=== PATIENT | female | born 1950 | race Caucasian/White ===

== ENCOUNTER 2017-12-27 17:45 | Inpatient (IN) | payer OTHER ==
[~2017-12-27] VITALS: Ht 154.9 cm; Wt 117.9 kg
[~2017-12-27 17:45] MED LIST: COLESTID1 GM PO; KEFLEX500 M1 PO; KEFLEX500 MG PO; KLONOPIN1 MG PO; LOPRESSOR25 PO; METFORMIN HCL500 MG PO; OMEPRAZOLE20 M1 PO
[2017-12-27 17:48] VITALS: BP 120/36; BP 128/63
[2017-12-27] MEDS ORDERED: LASIX 40 MG TAB40 M2 PO (17:58)
[2017-12-27] MEDS ORDERED: COREG25 MG PO (17:58)
[2017-12-27] MEDS ORDERED: LOVASTATIN 20 M20 MG PO (17:59)
[2017-12-27 18:12] LABS: ABSOLUTE BASOPHILS 0.1 thou/uL (0.0-0.2); ABSOLUTE EOSINOPHILS 0.2 thou/uL (0.0-0.7); ABSOLUTE LYMPHOCYTES 1.8 thou/uL (0.8-5.3); ABSOLUTE MONOCYTES 0.6 thou/uL (0.0-1.2); ABSOLUTE NEUTROPHILS 4.7 thou/uL (1.6-8.1); BASOPHILS 0.7 %; EOSINOPHILS 3.1 %; HEMOGLOBIN 11.5 gm/dL (12.0-15.0); LYMPHOCYTES 23.9 %; MCH 29.7 pg (26.0-34.0); MCHC 32.8 g/dL (28.0-37.0); MCV 90.7 fL (80.0-100.0); MONOCYTES 7.9 %; MPV 8.1 fl. (7.2-11.1); NUCLEATED RBCS 0 /100WBC; PLATELET COUNT* 231 thou/uL (150-400); POLYS 64.4 %; RBC 3.86 mil/uL (4.20-5.00); RDW-CV 14.1 % (10.5-14.5); WBC 7.3 thou/uL (4.0-11.0)
[2017-12-27 18:22] LABS: ANION GAP 9 mmol/L (7-16); BUN 27 mg/dL (7-18); CALCIUM 8.7 mg/dL (8.5-10.1); CHLORIDE 103 mmol/L (98-107); CO2 28 mmol/L (21-32); CREATININE 1.5 mg/dL (0.6-1.3); GLUCOSE 241 mg/dL (70-99); POTASSIUM 3.9 mmol/L (3.5-5.1); SODIUM 140 mmol/L (136-145)
[2017-12-27 18:24] LABS: APTT 26.5 Seconds (25.0-31.3)
[2017-12-27 18:33] LABS: ALKALINE PHOSPHATASE 94 U/L (46-116); NT-PRO BRAIN NAT PEPTIDE 388 pg/mL (<300); SGOT 17 U/L (15-37); SGPT 22 U/L (30-65); TOTAL BILIRUBIN 0.3 mg/dL (<0.1-1.0); TOTAL PROTEIN 7.4 g/dL (6.4-8.2); TROPONIN-I LEVEL <0.06 ng/mL (<0.06)
[2017-12-27 19:47] VITALS: BP 149/54
[2017-12-27 20:00] VITALS: BP 157/88
[2017-12-28] VITALS: BP 151/74
[2017-12-28] MEDS ORDERED: GLUCOPHAGE XR500 MG PO (01:54)
[2017-12-28 04:00] VITALS: BP 167/62
--- NOTE | 2017-12-28 07:25 | NUR ---
CHANGE OF SHIFT BEDSIDE REPORT GIVEN PATIENT SEEN AT BEDSIDE, IN BED ASLEEP ASSUMED PATIENT CARE
[2017-12-28 08:00] VITALS: BP 156/67
--- NOTE | 2017-12-28 09:19 | NUR ---
Pt is A&O. Resides at home alone. Pt states that she [facility]. Pt is independent with ADLs, continues to cook, clean and drive. Pt stated that she was in the hospital at [facility] at the end of September, she was dx with CHF and dc home with home o2 through the [facility] and a hospital bed. Pt stated that she also has a scooter and walker at home. Pt has a hx of having a nurse through the [facility] to assist with dressing changes for her lymphodema. 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 Pt's goal is to return home at dc, no needs anticipated.
[2017-12-28 09:27] LABS: CALCIUM 9.1 mg/dL (8.5-10.1); CREATININE 1.3 mg/dL (0.6-1.3); MAGNESIUM 1.8 mg/dL (1.8-2.4); POTASSIUM 3.6 mmol/L (3.5-5.1)
--- NOTE | 2017-12-28 11:20 | 2DMMODE ---
[place] [address] 2 D/M-MODE ECHOCARDIOGRAM Name: AMBAR SOSA Room: [address] IN [facility]#: [id number] Admission: 12/27/17 Attend Phys: Jacklyn Sanabria, Discharge: Date of : 48 Date of Service: 12/28/17 1120 Report #: [id number] THIS REPORT FOR: //name// APPROVED REPORT Study performed: 12/28/2017 10:10:04 EXAM: Comprehensive 2D, Doppler, and color-flow Echocardiogram Patient Location: In-Patient Room #: [facility] Status: routine BSA: 2.11 HR: 75 bpm BP: 167/62 mmHg Rhythm: NSR Other Information Study Quality: Good Indications Dyspnea 2D Dimensions LVEF(%): 83.59 (>50%) IVSd: 11.15 (7-11mm) LVOT Diam: 17.65 (18-24mm) LVDd: 50.94 mm PWd: 8.87 (7-11mm) Ascending Ao: 28.32 (22-36mm) LVDs: 24.04 (25-40mm) Aortic Root: 26.99 mm Shelton's LVEF: 83.59 % Volumes Left Atrial Volume (Systole) LA ESV Index: 32.00 mL/m2 Aortic Valve AoV Peak Juni.: 3.09 m/s AO Peak Gr.: 38.25 mmHg LVOT Max P.13 mmHg AO Mean Gr.: 22.37 mmHg LVOT Mean P.67 mmHg LVOT Max V: 1.88 m/s AO V2 VTI: 66.29 cm LVOT Mean V: 1.29 m/s AMBER (VTI): 1.67 cm2 LVOT V1 VTI: 45.35 cm Mitral Valve E/A Ratio: 0.84 [place] [address] 2 D/M-MODE ECHOCARDIOGRAM Name: AMBAR SOSA Room: [address] IN .R.#: [id number] Admission: 12/27/17 Attend Phys: Jacklyn Sanabria, Discharge: Date of : 48 Date of Service: 12/28/17 1120 Report #: [id number] MV Decel. Time: 263.14 ms MV E Max Juni.: 1.24 m/s MV PHT: 76.31 ms MVA (PHT): 2.88 cm2 TDI E/Lateral E': 9.54 E/Medial E': 10.33 Medial E' Juni.: 0.12 m/s Lateral E' Juni.: 0.13 m/s Pulmonary Valve PV Peak Juni.: 1.47 m/s PV Peak Gr.: 8.68 mmHg Tricuspid Valve TR Peak Gr.: 30.79 mmHg RVSP: 35.00 mmHg Left Ventricle The left ventricle is normal size. There is normal LV segmental wall motion. There is normal left ventricular wall thickness. Left ventricular systolic function is normal. LVEF is >70%. Transmitral Doppler flow pattern suggests impaired LV relaxation. Right Ventricle The right ventricle is normal size. The right ventricular systolic function is normal. Atria Left atrium is mildly dilated. The right atrium size is normal. Aortic Valve Mild aortic valve sclerosis. No aortic regurgitation is present. There is no aortic valvular stenosis. Mitral Valve The mitral valve is normal in structure. Trace mitral regurgitation. No evidence of mitral valve stenosis. Tricuspid Valve The tricuspid valve is normal in structure. Trace tricuspid regurgitation. The RVSP is 35-40 mmHg. Pulmonic Valve The pulmonary valve is normal in structure. There is no pulmonic [place] [address] 2 D/M-MODE ECHOCARDIOGRAM Name: AMBAR SOSA Room: [address] IN [facility]#: [id number] Admission: 12/27/17 Attend Phys: Jacklyn Sanabria, Discharge: Date of : 48 Date of Service: 12/28/17 1120 Report #: [id number] Great Vessels The aortic root is normal in size. IVC is normal in size and collapses with >50% inspiration Pericardium There is no pericardial effusion. <Conclusion> The left ventricle is normal size. There is normal left ventricular wall thickness. Left ventricular systolic function is normal. LVEF is >70%. Transmitral Doppler flow pattern suggests impaired LV relaxation. Left atrium is mildly dilated. Trace tricuspid regurgitation. The RVSP is 35-40 mmHg. Mild aortic valve sclerosis. <ELECTRONICALLY SIGNED> By: Yair Valdes MD, FACC 12/28/17 1120 19 19 Yair Valdes MD, FACC /INF
[2017-12-28 11:30] VITALS: BP 146/64
--- NOTE | 2017-12-28 11:40 | EKG ---
[place] [address] ELECTROCARDIOGRAM REPORT Name: AMBAR SOSA Room: [address] IN [facility]#: [id number] Admission: 12/27/17 Attend Phys: Jacklyn Sanabria MD Discharge: Date of : 48 Report #: [id number] THIS REPORT FOR: //name// [facility] ED Test Date: 2017-12-27 Test Time: 17:51:17 Pat Name: AMBAR SOSA Department: Room: Gender: F Client Solutions Director: Trace DONG : 1950 Requested By: Giovanni Spencer Order Number: [id number] MD: Quinn Solorio Measurements Intervals [place] Rate: 77 P: 51 VA: 162 QRS: 21 QRSD: 94 T: 55 QT: 401 QTc: 454 Interpretive Statements Sinus rhythm Baseline wander in lead(s) V2 Compared to ECG 06/16/2017 14:32:26 No significant changes Electronically Signed On 12-28-2017 11:40:04 CDT by Quinn Solorio [email or web address] <ELECTRONICALLY SIGNED> By: Quinn Solorio MD, [facility] 12/28/17 1140 1751 1751 Quinn Solorio MD, [facility] /EPI
--- NOTE | 2017-12-28 13:05 | NUR ---
NUtrition: consulted by nursing regarding diet. Pt is on low Na and CHO controlled diet. Pt states she is very strict with her 2 gm Na diet and eats about 1400 mg Na a day. Pt also reports Dm since childhood and can't tolerate most concenrated sweets, juice, etc; very strict w/ DM diet. Pt ordered a vegetable only salad no dressing for lunch, and wants the same for dinner with unbuttered toast (not crackers). Pt states she sat for too long at [employer] this weekend which caused her fluid to build up. No diet education needed at this time.
[2017-12-28 16:00] VITALS: BP 133/60
--- NOTE | 2017-12-28 17:25 | NUR ---
WOUND CARE NOTE: CONSULT RECEIVED FOR STASIS DERMATITIS. PATIENT PRESENTS WITH WHAT APPEARS CHRONIC VENOUS STASIS/LYMPHEDEMA TO BILATERAL LOWER EXTREMITIES. L>R. LEFT CALF MEASURES 61CM R CALF MEASURES 54CM. LEFT LEG IS TENDER TO TOUCH. CLEANSED BILATERAL LOWER EXTREMITIES WITH SOAP AND WATER, PATTED DRY. PATIENT STATES SHE IS ALLERGIC TO LOTIONS. NO LOTION WAS PLACED. APPLIED KERLIX AND THADDEUS FROM TOES TO KNEES. PALPABLE PEDAL PULSES BILATERALLY. ENCOURAGED PATIENT TO KEEP LEGS ELEVATED AND MAINTAIN COMPRESSION. PATIENT ADMITS TO NOT USING HER COMPRESSION OR LYMPHEDEMA PUMPS SHE IS SUPPOSED TO. RECOMMEND MILAN TO DETERMINE IF HIGHER COMPRESSION COULD BE TOLERATED. ELEVATE BLE TIGHT BLOOD GLUCOSE CONTROL-PATIENT STATES SHE IS ALLERGIC TO INSULIN FOLLOW UP WITH LYMPHEDEMA CLINC UPON DISCHARGE
[2017-12-28 18:07] LABS: URINE BILIRUBIN NEGATIVE (Negative); URINE BLOOD NEGATIVE (Negative); URINE CLARITY CLEAR; URINE COLOR YELLOW; URINE GLUCOSE-RANDOM NEGATIVE (Negative); URINE KETONES NEGATIVE (Negative); URINE LEUKOCYTES-REFLEX NEGATIVE (Negative); URINE NITRITE-REFLEX NEGATIVE (Negative); URINE PROTEIN NEGATIVE (Negative); URINE SPECIFIC GRAVITY 1.015 (1.005-1.030); URINE UROBILINOGEN 0.2 E.U./dl (0.2-1.0)
--- NOTE | 2017-12-28 18:29 | NUR ---
PATIENT REMAINS A AND O X 4 SR/1ST DEGR DIM/WHEEZES O2 2L NC O2 SAT MID 90S MEDIATOR COUGH APPETITE FAIR LAST BM UNKNOWN UP WITH 1 ASSIST TO BSC BLE 2-3+ AND DISCOLORATION NEW ORDERS ECHO, VENOUS DOPPLER COMPLETED URINE/CX SENT BLE COMPRESSIONS DONE PER WOUND CONS CARD FLUID RESTRICTION 2000CC ACCU CHECKS 242/267/265 PATIENT REFUSING SSI MESSAGE SENT TO NOTIFY CALL LIGHT IN REACH AND INSTRUCTION FOLLOWED BED ALARM ON
[2017-12-28 20:00] VITALS: BP 138/54
[2017-12-29] VITALS: BP 94/58
[2017-12-29 04:00] VITALS: BP 144/57
[2017-12-29 04:42] LABS: HEMATOCRIT 33.1 % (37.0-47.0); HEMOGLOBIN 10.9 gm/dL (12.0-15.0); MCH 29.9 pg (26.0-34.0); MCHC 32.9 g/dL (28.0-37.0); MCV 90.9 fL (80.0-100.0); MPV 8.5 fl. (7.2-11.1); RBC 3.65 mil/uL (4.20-5.00); RDW-CV 14.5 % (10.5-14.5); WBC 6.6 thou/uL (4.0-11.0)
[2017-12-29 05:01] LABS: CALCIUM 9.4 mg/dL (8.5-10.1); CREATININE 1.4 mg/dL (0.6-1.3); MAGNESIUM 2.2 mg/dL (1.8-2.4); POTASSIUM 3.6 mmol/L (3.5-5.1)
--- NOTE | 2017-12-29 05:34 | NUR ---
ASSUMED PT CARE AT 19:15. REPORT RECEIVED FROM NURSE. PTL SET AEKE ANTICULAUING. SR WITH 1SR DEGREE IN94 TO 95 % I 3 L O2. ASSESSMENT PERFORMED AT BEDSIDE. COMPRRSSION SOCKING ON DAVE LOWER EXTREMITIES ARE SWOLLEN. RECEIVED FRIENFD VISITORS. IV INE BLEW OUT, RPLACED BY NEW IV LINE IN LEFT HAND. ACCUCHECK RESULT NEEDED SAUL INSULIN . SHE REFUSED INSULIN WHICH IS BELIEVED TO CREAT SHORT AVTUING BT MUBB;ER FO R A 2018. PT IS CURRENTLY RESTIN IN BED. WILL CONTINUE TO MONITOR
--- NOTE | 2017-12-29 07:20 | NUR ---
CHANGE OF SHIFT, BEDSIDE REPORT GIVEN PATIENT SEEN AT BEDSIDE, IN BED AND RESTING ASSUMED PATIENT CARE
[2017-12-29 08:00] VITALS: BP 163/67
[2017-12-29 12:34] VITALS: BP 152/50
[2017-12-29 16:03] VITALS: BP 144/57
[2017-12-29 20:00] VITALS: BP 142/66
[2017-12-30] VITALS: BP 124/55
[2017-12-30 04:00] VITALS: BP 160/69
--- NOTE | 2017-12-30 06:42 | NUR ---
ASSUMED PT CARE AT 19:15 REPORT RECEIVED FROM NURSE. PT IS ALERT AWAKE ORIENTED X 4, VITALS SIGNS WIHTIN NORMAL LIMIT. NO COMPLAINT ABOUT PAIN. ASSESSMENT PERFORMED AT BEDSIDE. EXPERIENCED SOME COUGHING DURING THE NIGHT. i SUGGESTED SOME COUGH MED . PT REFUSES SAYING THAT COUGH MEDICINE IS NOT GOOD FOR HER. SHE IS SINUE RYTHM ON THE MONITOR. SHE GOT UP WITH ASSIST X1 MULTIPLE TIME DURING THE NIGHT SO SHE CAN USE THE BEDSIDE COMMODE. SHE REFUSES THE INSULIN ORDERS USUAL. ONLY TAKES THE METFORMIN. SHE HAD A GOOD NIGHT FREE OF FALL.
[2017-12-30 08:25] VITALS: BP 173/64
--- NOTE | 2017-12-30 08:25 | NUR ---
RECEIVED REPORT FROM MIRI AND ASSUMED CARE OF PT @ 2223.PT IS A/O,VSS,TRACING SR ON THE MONITOR.LUNG SOUNDS ARE CLEAR.IV LEFT FOREARM PATENT AND SALINE LOCKED.PT IS CALM AND COOPERATIVE WITH NO C/O PAIN AT TIME OF ASSESSMENT.PT IS UP WITH SBA TO BATHROOM.PT LEFT RESTING IN BED WITH CALL LIGHT AND FALL PRECAUTIONS IN PLACE. WILL CONTINUE TO MONITOR. PT LEGS REWRAPPED BY WOUND CARE.PT OK FOR DISCHARGE.
--- NOTE | 2017-12-30 10:42 | CON ---
[facility] [address] [place] [address] CONSULTATION Name: AMBAR SOSA Room: [address] IN .R.#: [id number] Admission: 12/27/17 Attend Phys: Jacklyn Sanabria MD Discharge: Date of : 48 Report #: [id number] THIS REPORT FOR: //name// CC: Francois Sanabria INDICATION: Heart failure. HISTORY OF PRESENT ILLNESS: The patient is a morbidly obese 67-year-old white female with chronic lymphedema of the left lower extremity who was admitted to the hospital with increasing shortness of breath and swelling. She was not having any chest pain. She was admitted to the hospital with a diagnosis of qtdsq-ys-auqsobg heart failure. Echocardiogram today shows normal left ventricular systolic function with evidence of diastolic dysfunction suggesting/supporting diagnosis of yzmmn-co-tswxyma diastolic heart failure. She has rather significant swelling of both lower extremities, especially the left lower extremity. She has worn wraps in the past. She is having some blistering of the legs and reports recent cellulitis. PAST MEDICAL HISTORY: 1. Congestive heart failure. 2. Chronic lymphedema. 3. History of cellulitis involving both legs. 4. Breast cancer, status post right mastectomy. 5. Morbid obesity. 6. PTSD. 7. The patient reports history of coronary artery disease. FAMILY HISTORY: The patient's brother suddenly. There is a history of coronary artery disease, bypass surgery and heart failure in family relatives. SOCIAL HISTORY: The patient quit smoking 3 years ago. She does not drink alcohol. She is 100% disabled. ALLERGIES: ASPIRIN, STADOL, CODEINE, HYDROCODONE, IBUPROFEN, MEPERIDINE, SULFAS. HOME MEDICATIONS: Carvedilol 25 mg p.o. b.i.d., Lasix 40 mg p.o. daily, lovastatin 20 mg p.o. daily, metformin XR 500 mg daily, omeprazole 20 mg daily, clonazepam 1 mg at bedtime. REVIEW OF SYSTEMS: A 14-point review of systems is positive for focal paralysis of the left lower extremity, recent fevers. CARDIOPULMONARY: She reports a cough that is nonproductive. She has a history of pneumonia and asthma. She reports palpitations, dyspnea, orthopnea and paroxysmal [place] [address] CONSULTATION Name: AMBAR SOSA Room: [address]#: [id number] Admission: 12/27/17 Attend Phys: Jacklyn Sanabria MD Discharge: Date of : 48 Report #: [id number] LYMPHATIC: She reports lymphedema. ENDOCRINE: She reports type 2 diabetes mellitus. GASTROINTESTINAL: She has had some vomiting without hematemesis. BREAST: She has a history of right breast cancer, status post partial lumpectomy. ALLERGIES: Medical as outlined above. She also reports seasonal allergies. PSYCHIATRIC: She reports PTSD. 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 EYES: She wears glasses without acute visual changes. Otherwise, 14-point review of systems is unremarkable. PHYSICAL EXAMINATION: VITAL SIGNS: Blood pressure 146/64, pulse 80 and regular. GENERAL: This is an obese white female, in no distress. Mood and affect appropriate. HEENT: The patient is wearing glasses. Extraocular muscles intact. Mucous membranes are moist. NECK: Shows no jugular venous distention. There are no carotid bruits. CHEST: Reveals clear lung arvizu. I do not appreciate wheezes or rales. CARDIOVASCULAR: Reveals a regular rhythm with normal S1 and S2. I do not appreciate gallop or murmur. ABDOMEN: Reveals a protuberant abdomen, soft and nontender. EXTREMITIES: Show significant lower extremity edema with 3 to 4+ edema of the lower extremities. There are chronic skin changes noted. SKIN: Dry. LABORATORY DATA: Labs are reviewed. Sodium 141, potassium 3.6, chloride 101, bicarbonate 30, BUN 26, creatinine 1.3, serum glucose 240. LFTs are within normal limits. Troponins less than 0.06. NT-proBNP 388. White blood cell count 7.3, hemoglobin 11.5, platelet count 231,000. Chest x-ray shows no acute process, mild cardiomegaly noted. Echocardiogram shows normal left ventricular systolic function with grade 1 diastolic dysfunction. IMPRESSION AND RECOMMENDATIONS: 1. Hncpt-ve-cyrvkms diastolic heart failure. Agree with continued IV diuretics for diuresis. At this point, would continue to treat other underlying causes including hypertension. 2. Diabetes treatment per primary physician. 3. Lymphedema. The patient is on a moderate dose diuretic and diuresing fairly well at this point in time. I would consider lower extremity wraps to aid in compression. The patient to keep her legs elevated as she is doing. [facility] [address] [place] [address] CONSULTATION Name: AMBAR SOSA Room: [address]: [id number] Admission: 12/27/17 Attend Phys: Jacklyn Sanabria MD Discharge: Date of : 48 Report #: [id number] 4. Hypertension. Blood pressure appears adequately controlled on current antihypertensive regimen. <ELECTRONICALLY SIGNED> By: Yair Valdes MD, FACC 12/30/17 1042 1433 0004Yair Valdes MD, FACC /nt
--- NOTE | 2017-12-30 11:25 | NUR ---
CM discussed HH with Pt, Pt stated that if she gets home and decides that she needs it, [facility] will [facility] and [facility]. Pt scheduled to dc to home today.
--- NOTE | 2017-12-30 11:32 | NUR ---
WOUND CARE NOTE: PATIENT'S MILAN WOULD BE APPROPRIATE FOR STRONGER COMPRESSION. PATIENT DENIES NEED FOR HOME HEALTH AND STATES SHE WOULD REWRAP HER LEGS HERSELF. DO NOT BELIEVE THIS WOULD BE IDEAL FOR PATIENT TO WRAP HER LEGS WITH MULTILAYERED COMPRESSION. COMPRESSION MAY NOT BE THERAPEUTIC. HOWEVER, PATIENT STATES SHE HAS LYMPHEDEMA PUMPS AND COMPRESSION GARMETS AT HOME. PATIENT STATES SHE HAS SEEN [facility] AND EXPRESSED INTEREST IN GOING TO OUR LYMPHEDEMA CLINIC. GAVE PATIENT CARD FOR OUR CLINIC AND ENCOURAGED PATIENT TO FOLLOW UP IN ONE OR THE OTHER. EDUCATED PATIENT ON IMPORTANCE OF WEARING COMPRESSION, PATIENT ADMITS TO NOT WEARING THEM WHEN SHE IS OUT RUNNING ERRANDS OR TO APPOINTMENTS. STRESSED THE IMPORTANCE OF WEARING HER COMPRESSION EVEN WHEN SHE IS OUT AND ABOUT. PATIENT COMMUNICATED UNDERSTANDING. EDUCATED PATIENT ON IMPORTANCE OF ELEVATING HER LEGS AND NOT SITTING WITH THEM DOWN, COMMUNICATED UNDERSTANDING. PATIENT STATES SHE HAS A HOSPITAL BED AT HOME AND A LAZY BOY SHE CAN USE. REWRAPPED PATIENT'S LEGS WITH KERLIX AND THADDEUS. PATIENT STATES SHE HAS CELLULITIS TO THE RIGHT LEG, BUT THIS LEG DOES NOT APPEAR INFLAMMED OR HOT TO TOUCH. BILATERAL LEGS CONTINUE TO BE EDEMATOUS. RECOMMEND FOLLOW UP IN LYMPHEDEMA CLINIC COMPRESSION THERAPY-DETENTION ELEVATE BLE
[2017-12-30 12:41] VITALS: BP 169/70
[2017-12-30] MEDS ORDERED: PROVIGIL 200 M200 M1 PO (14:46)
[2017-12-30] MEDS ORDERED: ACCUNEB SO1.25 MG/1 INH (14:48)
[2017-12-30 16:00] VITALS: BP 154/61
--- NOTE | 2017-12-30 16:22 | NUR ---
PT OK FOR DISCHARGE.PAPERWORK COMPLETED AND GIVEN TO PT.ALL PT BELONGINGS PACKED AND TAKEN WITH PT.IV REMOVED.HEART MONITOR REMOVED AND RETURNED TO NURSING STATION.FOLLOW UP APPOINTMENT SCHEDULED WITH PCP WITHIN 7 DAYS FROM TODAY.SCRIPTS AND EDUCATION GIVEN.
== END 2017-12-30 17:25 | disposition home or self-care (01) | DRG 291 ==
LOC: M.ERS 17:45 → M.TBA-ER 18:20 → M.2W 18:20
PROVIDERS: Family Medicine; Internal Medicine; ADMIT Internal Medicine
DX: I13.0 Hypertensive heart and chronic kidney disease with heart failure and stage 1 through stage 4 chronic kidney disease, or unspecified chronic kidney disease (principal); J96.21 Acute and chronic respiratory failure with hypoxia; I50.43 Acute on chronic combined systolic (congestive) and diastolic (congestive) heart failure; Z68.42 Body mass index [BMI] 45.0-49.9, adult; E66.01 Morbid (severe) obesity due to excess calories; I89.0 Lymphedema, not elsewhere classified; F43.10 Post-traumatic stress disorder, unspecified; I25.10 Atherosclerotic heart disease of native coronary artery without angina pectoris; Z96.653 Presence of artificial knee joint, bilateral; Z96.651 Presence of right artificial knee joint; N18.3 Chronic kidney disease, stage 3 (moderate); I87.2 Venous insufficiency (chronic) (peripheral); E11.22 Type 2 diabetes mellitus with diabetic chronic kidney disease; G47.419 Narcolepsy without cataplexy; Z85.3 Personal history of malignant neoplasm of breast; Z90.11 Acquired absence of right breast and nipple; Z82.49 Family history of ischemic heart disease and other diseases of the circulatory system; Z87.891 Personal history of nicotine dependence; Z88.6 Allergy status to analgesic agent; Z88.8 Allergy status to other drugs, medicaments and biological substances; Z88.2 Allergy status to sulfonamides; Z79.899 Other long term (current) drug therapy; Z79.84 Long term (current) use of oral hypoglycemic drugs; I25.2 Old myocardial infarction; Z90.49 Acquired absence of other specified parts of digestive tract; Z90.722 Acquired absence of ovaries, bilateral

== ENCOUNTER 2018-04-17 08:00 | Emergency (ER) | payer OTHER ==
[~2018-04-17] VITALS: Ht 121.9 cm; Wt 158.8 kg
[~2018-04-17 08:00] MED LIST changes: +ACCUNEB SO1.25 MG/1 INH; +COREG25 MG PO; +GLUCOPHAGE XR500 MG PO; +LASIX 40 MG TAB40 M2 PO; +LOVASTATIN 20 M20 MG PO; +PROVIGIL 200 M200 M1 PO
[2018-04-17] MEDS ORDERED: UNICOMPLEX M TA1 TA1 PO (08:15)
[2018-04-17] MEDS ORDERED: LASIX 20 MG TAB20 MG PO (08:16)
[2018-04-17] MEDS ORDERED: MEDROLDOSEPACK PO (09:59)
[2018-04-17] MEDS ORDERED: ULTRAM 50MG TAB50 MG PO (09:59)
[2018-04-17 10:16] VITALS: BP 105/42
== END 2018-04-17 10:19 | disposition home or self-care (01) ==
LOC: M.ERS 08:00
DX: M75.82 Other shoulder lesions, left shoulder (principal); L50.9 Urticaria, unspecified; I50.9 Heart failure, unspecified; E11.9 Type 2 diabetes mellitus without complications; J44.9 Chronic obstructive pulmonary disease, unspecified; J96.11 Chronic respiratory failure with hypoxia; I25.10 Atherosclerotic heart disease of native coronary artery without angina pectoris; E66.01 Morbid (severe) obesity due to excess calories; Z88.6 Allergy status to analgesic agent; Z88.8 Allergy status to other drugs, medicaments and biological substances; Z88.5 Allergy status to narcotic agent; Z88.2 Allergy status to sulfonamides; Z96.653 Presence of artificial knee joint, bilateral; Z85.3 Personal history of malignant neoplasm of breast; Z68.45 Body mass index [BMI] 70 or greater, adult

== ENCOUNTER 2018-06-20 19:20 | Emergency (ER) | payer OTHER, MEDICARE ==
[~2018-06-20] VITALS: Ht 154.9 cm; Wt 142.9 kg
[~2018-06-20 19:20] MED LIST changes: +LASIX 20 MG TAB20 MG PO; +MEDROLDOSEPACK PO; +ULTRAM 50MG TAB50 MG PO; +UNICOMPLEX M TA1 TA1 PO
[2018-06-20] MEDS ORDERED: GABAPENTIN 100100 MG (19:31)
[2018-06-20 19:51] LABS: ABSOLUTE EOSINOPHILS 0.2 thou/uL (0.0-0.7); ABSOLUTE LYMPHOCYTES 1.1 thou/uL (0.8-5.3); ABSOLUTE MONOCYTES 0.5 thou/uL (0.0-1.2); ABSOLUTE NEUTROPHILS 4.1 thou/uL (1.6-8.1); BASOPHILS 0.8 %; EOSINOPHILS 3.7 %; HEMATOCRIT 32.2 % (37.0-47.0); HEMOGLOBIN 10.4 gm/dL (12.0-15.0); MCH 29.8 pg (26.0-34.0); MCHC 32.4 g/dL (28.0-37.0); MCV 91.9 fL (80.0-100.0); MONOCYTES 8.1 %; MPV 8.3 fl. (7.2-11.1); NUCLEATED RBCS 0 /100WBC; PLATELET COUNT* 169 thou/uL (150-400); POLYS 69.4 %; RBC 3.51 mil/uL (4.20-5.00); WBC 5.9 thou/uL (4.0-11.0)
[2018-06-20 20:00] LABS: ANION GAP 8 mmol/L (7-16); BUN 26 mg/dL (7-18); CALCIUM 8.5 mg/dL (8.5-10.1); CHLORIDE 105 mmol/L (98-107); CO2 29 mmol/L (21-32); CREATININE 1.3 mg/dL (0.6-1.3); GLUCOSE 282 mg/dL (70-99); SODIUM 142 mmol/L (136-145)
[2018-06-20 20:02] LABS: ALBUMIN 2.7 g/dL (3.4-5.0); ALKALINE PHOSPHATASE 83 U/L (46-116); MAGNESIUM 1.6 mg/dL (1.8-2.4); SGOT 14 U/L (15-37); SGPT 16 U/L (30-65); TOTAL BILIRUBIN 0.3 mg/dL (<0.1-1.0); TOTAL PROTEIN 6.4 g/dL (6.4-8.2); TROPONIN-I LEVEL <0.06 ng/mL (<0.06)
[2018-06-20 21:12] VITALS: BP 125/59
--- NOTE | 2018-06-22 17:59 | EKG ---
[place] [address] ELECTROCARDIOGRAM REPORT Name: AMBAR SOSA Room: [facility]#: [id number] Admission: 06/20/18 Attend Phys: Discharge: 06/20/18 Date of : 48 Report #: [id number] THIS REPORT FOR: //name// [facility] ED Test Date: 2018-06-20 Test Time: 19:28:04 Pat Name: AMBAR SHEILA Department: Room: Gender: F Aircraft Maintenance Engineer: SAJI : 1950 Requested By: Macy Dia Order Number: [id number] MD: Yair Valdes Measurements Intervals [place] Rate: 75 P: 37 [place]: 175 QRS: 45 QRSD: 99 T: 55 QT: 406 QTc: 454 Interpretive Statements Sinus rhythm Compared to ECG 12/27/2017 17:51:17 No significant changes Electronically Signed On 06-22-2018 17:59:32 [employer] CONSULTANT by Yair Valdes [email or web address] <ELECTRONICALLY SIGNED> By: Yair Valdes MD, [facility] 06/22/18 1759 192 192 Yair Valdes MD, FACC /EPI
== END 2018-06-20 21:15 | disposition home or self-care (01) ==
LOC: M.ERS 19:20
PROVIDERS: Personal Emergency Response Attendant
DX: G47.419 Narcolepsy without cataplexy (principal); R60.0 Localized edema; I50.9 Heart failure, unspecified; E11.9 Type 2 diabetes mellitus without complications; E66.01 Morbid (severe) obesity due to excess calories; I25.10 Atherosclerotic heart disease of native coronary artery without angina pectoris; J96.11 Chronic respiratory failure with hypoxia; Z85.3 Personal history of malignant neoplasm of breast; Z68.43 Body mass index [BMI] 50.0-59.9, adult; Z88.6 Allergy status to analgesic agent; Z88.1 Allergy status to other antibiotic agents; Z88.5 Allergy status to narcotic agent; Z88.2 Allergy status to sulfonamides; Z88.8 Allergy status to other drugs, medicaments and biological substances

== ENCOUNTER 2018-06-30 16:28 | Inpatient (IN) | payer OTHER ==
[~2018-06-30] VITALS: Ht 154.9 cm; Wt 146.1 kg
[~2018-06-30 16:28] MED LIST changes: +GABAPENTIN 100100 MG
[2018-06-30 16:34] VITALS: BP 160/65
[2018-06-30 17:22] LABS: ABSOLUTE BASOPHILS 0.1 thou/uL (0.0-0.2); ABSOLUTE EOSINOPHILS 0.3 thou/uL (0.0-0.7); ABSOLUTE LYMPHOCYTES 1.2 thou/uL (0.8-5.3); ABSOLUTE MONOCYTES 0.5 thou/uL (0.0-1.2); ABSOLUTE NEUTROPHILS 4.5 thou/uL (1.6-8.1); BASOPHILS 0.8 %; EOSINOPHILS 4.2 %; HEMATOCRIT 31.6 % (37.0-47.0); HEMOGLOBIN 10.3 gm/dL (12.0-15.0); LYMPHOCYTES 18.8 %; MCH 29.9 pg (26.0-34.0); MCHC 32.7 g/dL (28.0-37.0); MCV 91.4 fL (80.0-100.0); MONOCYTES 7.1 %; MPV 7.3 fl. (7.2-11.1); NUCLEATED RBCS 0 /100WBC; PLATELET COUNT* 277 thou/uL (150-400); POLYS 69.1 %; RBC 3.46 mil/uL (4.20-5.00); RDW-CV 15.2 % (10.5-14.5); WBC 6.5 thou/uL (4.0-11.0)
[2018-06-30] MEDS ORDERED: ALEVE220 MG PO (17:25)
[2018-06-30] MEDS ORDERED: COREG25 M1 PO (17:25)
[2018-06-30] MEDS ORDERED: LASIX 20 MG TAB20 MG PO (17:26)
[2018-06-30] MEDS ORDERED: CENTRUM SILVER1 EAC4 PO (17:26)
[2018-06-30] MEDS ORDERED: CLONAZEPAM 0.50.5 M1 PO (17:26)
[2018-06-30] MEDS ORDERED: FORTAMET500 MG PO (17:27)
[2018-06-30] MEDS ORDERED: OMEPRAZOLE20 MG PO (17:27)
[2018-06-30] MEDS ORDERED: GABAPENTIN 100100 MG PO (17:27)
[2018-06-30] MEDS ORDERED: LOVASTATIN 20 M20 MG PO (17:27)
[2018-06-30] MEDS ORDERED: PROAIR RESPICL90 MCG INH (17:28)
[2018-06-30 17:33] LABS: ANION GAP 8 mmol/L (7-16); APTT 25.8 Seconds (25.0-31.3); BUN 24 mg/dL (7-18); CHLORIDE 106 mmol/L (98-107); CO2 29 mmol/L (21-32); CREATININE 1.2 mg/dL (0.6-1.3); GLUCOSE 160 mg/dL (70-99); POTASSIUM 4.4 mmol/L (3.5-5.1); SODIUM 143 mmol/L (136-145)
[2018-06-30 17:43] LABS: ALBUMIN 2.8 g/dL (3.4-5.0); ALKALINE PHOSPHATASE 90 U/L (46-116); LIPASE 118 U/L (73-393); MAGNESIUM 1.7 mg/dL (1.8-2.4); NT-PRO BRAIN NAT PEPTIDE 851 pg/mL (<300); SGOT 30 U/L (15-37); SGPT 29 U/L (30-65); TOTAL BILIRUBIN 0.3 mg/dL (<0.1-1.0); TOTAL PROTEIN 6.5 g/dL (6.4-8.2); TROPONIN-I LEVEL <0.06 ng/mL (<0.06)
[2018-06-30 19:38] LABS: URINE BILIRUBIN NEGATIVE (Negative); URINE BLOOD NEGATIVE (Negative); URINE CLARITY CLEAR; URINE COLOR YELLOW; URINE GLUCOSE-RANDOM NEGATIVE (Negative); URINE KETONES NEGATIVE (Negative); URINE LEUKOCYTES-REFLEX NEGATIVE (Negative); URINE NITRITE-REFLEX NEGATIVE (Negative); URINE PROTEIN NEGATIVE (Negative); URINE SPECIFIC GRAVITY 1.015 (1.005-1.030); URINE UROBILINOGEN 0.2 E.U./dl (0.2-1.0)
[2018-06-30 19:47] LABS: AMP/METHAMP Negative (Negative); BARBITURATES Negative (Negative); BENZODIAZEPINES Negative (Negative); COCAINE Negative (Negative); METHADONE Negative (Negative); OPIATES Negative (Negative); PCP Negative (Negative); THC Negative (Negative)
[2018-06-30 20:20] VITALS: BP 157/74
[2018-06-30 20:35] VITALS: BP 155/63
[2018-07-01] VITALS: BP 147/65
[2018-07-01 04:00] VITALS: BP 133/61
[2018-07-01 05:15] LABS: HEMATOCRIT 32.8 % (37.0-47.0); HEMOGLOBIN 10.5 gm/dL (12.0-15.0); MCH 29.2 pg (26.0-34.0); MCV 91.2 fL (80.0-100.0); MPV 7.9 fl. (7.2-11.1); NUCLEATED RBCS 0 /100WBC; PLATELET COUNT* 295 thou/uL (150-400); RDW-CV 15.2 % (10.5-14.5); WBC 7.1 thou/uL (4.0-11.0)
[2018-07-01 05:26] LABS: ANION GAP 8 mmol/L (7-16); BUN 24 mg/dL (7-18); CALCIUM 8.8 mg/dL (8.5-10.1); CHLORIDE 104 mmol/L (98-107); CHOLESTEROL 154 mg/dL (<200); CO2 28 mmol/L (21-32); CREATININE 1.3 mg/dL (0.6-1.3); GLUCOSE 239 mg/dL (70-99); HDL CHOLESTEROL 48 mg/dL (>40); LDL CHOLESTEROL 83 mg/dL (<100); MAGNESIUM 1.7 mg/dL (1.8-2.4); SODIUM 140 mmol/L (136-145); TC:HDL 3.2 Ratio (Not establshd); TRIGLYCERIDE 118 mg/dL (<150); VLDL 24 mg/dL (<40)
[2018-07-01 05:52] LABS: SERUM ASSESSMENT CLEAR
[2018-07-01 06:04] LABS: % SATURATION 10 % (20-39); IRON 33 ug/dL (50-175)
[2018-07-01 06:49] LABS: ABSOLUTE LYMPHOCYTES 0.7 thou/uL (0.8-5.3); ABSOLUTE MONOCYTES 0.1 thou/uL (0.0-1.2); ABSOLUTE NEUTROPHILS 6.3 thou/uL (1.6-8.1)
[2018-07-01 06:50] LABS: HYPOCHROMASIA 1+; MICROCYTES 1+; PLATELET ESTIMATE ADEQUATE
[2018-07-01 08:00] VITALS: BP 132/54; BP 147/57
[2018-07-01 11:55] VITALS: BP 132/48
--- NOTE | 2018-07-01 14:00 | EKG ---
[place] [address] ELECTROCARDIOGRAM REPORT Name: AMBAR SOSA Room: [address] ADM IN .R.#: [id number] Admission: 06/30/18 Attend Phys: Pat Gan MD Discharge: Date of : 48 Report #: [id number] THIS REPORT FOR: //name// [facility] ED Test Date: 2018-06-30 Test Time: 16:45:40 Pat Name: AMBAR SOSA Department: Room: [facility] Gender: Accident Examiner: Trace DONG : 1950 Requested By: Giovanni Spencer Order Number: [id number] MD: Yair Valdes Measurements Intervals [place] Rate: 70 P: 59 ND: 168 QRS: 29 QRSD: 87 T: 41 QT: 415 QTc: 448 Interpretive Statements Sinus rhythm Low voltage, precordial leads Compared to ECG 06/20/2018 19:28:04 Low QRS voltage now present Electronically Signed On 07-01-2018 13:59:55 STEP DOWN SPECIALIST by Yair Valdes [email or web address] <ELECTRONICALLY SIGNED> By: Yair Valdes MD, FACC 07/01/18 1359 1645 1645 Yair Valdes MD, [facility] /EPI
[2018-07-01 16:46] VITALS: BP 132/54
[2018-07-01 19:07] LABS: GLYCOHEMOGLOBIN (HGB A1C) 8.3 % (4.8-5.6)
[2018-07-01 20:42] VITALS: BP 114/51
[2018-07-02] VITALS (7 sets, daily range): BP systolic 105–130; BP diastolic 46–61
--- NOTE | 2018-07-02 05:08 | CON ---
[facility] [address] [place] [address] CONSULTATION Name: AMBAR SOSA Room: [address] IN .R.#: [id number] Admission: 06/30/18 Attend Phys: Pat Gan MD Discharge: Date of : 48 Report #: [id number] THIS REPORT FOR: //name// CC: [facility] physician/PCP Pat Gan DATE OF SERVICE: 07/01/2018 INFECTIOUS DISEASE CONSULTATION ATTENDING PHYSICIAN: Dr. Gan. REASON FOR EVALUATION: Lower extremity inflammatory eruptions, question component of skin and soft tissue infection with cellulitis. HISTORY OF PRESENT ILLNESS: Chart reviewed, patient examined. This is a 68-year-old woman, with underlying COPD, who presented with shortness of breath. It is notable she has history of congestive heart failure as well as lower extremity lymphedema. She had been intermittently going to lymphedema clinic. She does have lymphedema pumps, however, became prohibitive for a number of reasons, she has not been going. She has not undergone wrapping. She does only walk a few steps. This is limited by shortness of breath. She requires a wheelchair, although she is good about not sitting all day along with her legs down. She does have a recliner and hospital bed. She has had increasing pain associated, in particular the left lower extremity. She has not had significant amount of erythema. From lack of compression, she has significant swelling. She does admit to dyspnea with minimal exertion at this point. She was initiated on doxycycline. ALLERGIES: SULFA, CODEINE, HYDROCODONE, ASPIRIN, IBUPROFEN, CLINDAMYCIN, TRAMADOL, MEPERIDINE, STADOL. CURRENT MEDICATIONS: Include p.r.n. analgesics, antiemetics, enoxaparin, furosemide, carvedilol, clonazepam, insulin, gabapentin, pantoprazole, ferrous sulfate, ascorbic acid. PAST MEDICAL HISTORY: As described above, history of diabetes mellitus, cardiomyopathy, history of congestive heart failure, morbid obesity, PTSD, chronic respiratory insufficiency, although she denies sleep apnea, admits to narcolepsy, bilateral total knee arthroplasty, history of breast cancer, left lower extremity paresis and has known atherosclerotic coronary artery disease. SOCIAL HISTORY: Former smoker. No ethanol or illicit drug use. FAMILY HISTORY: [place] [address] CONSULTATION Name: AMBAR SOSA Room: [address]#: [id number] Admission: 06/30/18 Attend Phys: Pat Gan MD Discharge: Date of : 48 Report #: [id number] REVIEW OF SYSTEMS: With the exception of the above, denies any gastrointestinal related complaints. PHYSICAL EXAMINATION: GENERAL: She is morbidly obese. She is dyspneic at rest. She has difficulty completing her sentences. She is on nasal cannula oxygen. VITAL SIGNS: Temperature 97.6, pulse 62, respirations 18, blood pressure 132/48. SKIN: Warm, dry, no rashes. HEENT: Extraocular muscles intact. NECK: He has got mobile neck. Supple. LUNGS: Diminished breath sounds throughout. HEART: Regular, distant. ABDOMEN: Morbidly obese, soft, nontender. EXTREMITIES: Bilateral lower extremities have appearance consistent with lymphedema. She has a component of venous stasis insufficiency with dermatitis. It is tender to touch. There is not significant amount of erythema. There are no open lesions. There is some quantification of the skin due to thickening due to the chronic stressor of the edema. Distal lower extremity pulses are somewhat diminished, may be a component of swelling. GENITOURINARY: Deferred. RECTAL: Deferred. LABORATORY DATA: Chest x-ray, cardiomegaly with vascular congestion. Blood cultures sterile thus far. CBC: White count of 7.1, H and H 10.5 and 32.8, platelets of 295. Electrolytes: Sodium 140, potassium 4.0, chloride 104, bicarbonate is 28, BUN and creatinine 24 and 1.3, glucose of 239. Urinalysis unremarkable. Lactic acid of 1.7. Sodium 143, potassium 4.4, chloride 106, bicarbonate is 29, anion gap of 8, BUN and creatinine 24 and 1.2, glucose of 160. Liver function tests unremarkable. Albumin of 2.8, total protein 6.5. Estimated GFR of 45. ASSESSMENT: Bilateral lower extremity inflammatory eruption, certainly notable increase in pain associated with particularly the left lower extremity, certainly can exclude entirely a cellulitic process, although I think it is primarily venous stasis dermatitis. I think at this point we have to work at the margins. She is disinclined to have compression. We will try to elevate at times so that we have to monitor closely with concerns about exacerbation of her already tenuous breathing situation and congestive heart failure with the fluid shifts and see how she does over the course of next 24-48 hours. <ELECTRONICALLY SIGNED> By: Angel Chou MD 07/02/18 0508 1205 [id number] Chou MD /nt
[2018-07-03] VITALS: BP 104/48
[2018-07-03 04:00] VITALS: BP 139/68
[2018-07-03 08:00] VITALS: BP 148/83
[2018-07-03 08:01] LABS: CREATININE 1.4 mg/dL (0.6-1.3); MAGNESIUM 1.7 mg/dL (1.8-2.4); POTASSIUM 3.3 mmol/L (3.5-5.1)
[2018-07-03 12:47] VITALS: BP 143/53
[2018-07-03 16:00] VITALS: BP 128/42
[2018-07-03 20:00] VITALS: BP 140/49
[2018-07-04] VITALS: BP 146/61
[2018-07-04 04:00] VITALS: BP 96/35
[2018-07-04 04:46] LABS: ABSOLUTE EOSINOPHILS 0.1 thou/uL (0.0-0.7); ABSOLUTE LYMPHOCYTES 1.4 thou/uL (0.8-5.3); ABSOLUTE MONOCYTES 0.7 thou/uL (0.0-1.2); ABSOLUTE NEUTROPHILS 3.6 thou/uL (1.6-8.1); BASOPHILS 0.8 %; EOSINOPHILS 2.1 %; HEMATOCRIT 34.4 % (37.0-47.0); HEMOGLOBIN 11.2 gm/dL (12.0-15.0); LYMPHOCYTES 23.3 %; MCH 29.6 pg (26.0-34.0); MCHC 32.5 g/dL (28.0-37.0); MCV 91.1 fL (80.0-100.0); MONOCYTES 12.2 %; MPV 7.7 fl. (7.2-11.1); NUCLEATED RBCS 0 /100WBC; PLATELET COUNT* 277 thou/uL (150-400); POLYS 61.6 %; RBC 3.78 mil/uL (4.20-5.00); WBC 5.8 thou/uL (4.0-11.0)
[2018-07-04 05:12] LABS: CALCIUM 9.4 mg/dL (8.5-10.1); CREATININE 1.4 mg/dL (0.6-1.3); MAGNESIUM 1.9 mg/dL (1.8-2.4); POTASSIUM 3.8 mmol/L (3.5-5.1)
[2018-07-04 08:00] VITALS: BP 136/71
[2018-07-04 12:01] VITALS: BP 181/82
[2018-07-04 16:06] VITALS: BP 147/45
[2018-07-04 20:00] VITALS: BP 118/55
[2018-07-05] VITALS: BP 135/57
[2018-07-05 04:00] VITALS: BP 136/46
[2018-07-05 08:00] VITALS: BP 120/65
[2018-07-05 12:00] VITALS: BP 102/60
[2018-07-05 13:27] LABS: CALCIUM 9.6 mg/dL (8.5-10.1); CREATININE 1.5 mg/dL (0.6-1.3); POTASSIUM 3.3 mmol/L (3.5-5.1)
[2018-07-05 16:00] VITALS: BP 151/74
[2018-07-05 20:00] VITALS: BP 145/46
[2018-07-06] VITALS: BP 141/54
[2018-07-06 04:00] VITALS: BP 156/56
[2018-07-06 05:46] LABS: CALCIUM 9.3 mg/dL (8.5-10.1); CREATININE 1.4 mg/dL (0.6-1.3); POTASSIUM 4.1 mmol/L (3.5-5.1)
[2018-07-06 08:00] VITALS: BP 121/54
[2018-07-06 12:00] VITALS: BP 133/58
[2018-07-06 16:45] VITALS: BP 129/71
[2018-07-06 20:00] VITALS: BP 131/59
[2018-07-07] VITALS (7 sets, daily range): BP systolic 92–149; BP diastolic 58–78
[2018-07-08 04:00] VITALS: BP 127/45
[2018-07-08 08:45] VITALS: BP 122/71
[2018-07-08 12:38] VITALS: BP 124/74
[2018-07-08 16:48] VITALS: BP 149/66
[2018-07-08 19:30] VITALS: BP 127/67
[2018-07-09] VITALS: BP 130/49
[2018-07-09 05:16] LABS: HEMATOCRIT 40.9 % (37.0-47.0); HEMOGLOBIN 13.5 gm/dL (12.0-15.0); MCH 30.2 pg (26.0-34.0); MCHC 33.1 g/dL (28.0-37.0); MCV 91.2 fL (80.0-100.0); MPV 8.7 fl. (7.2-11.1); RBC 4.49 mil/uL (4.20-5.00); RDW-CV 14.7 % (10.5-14.5); WBC 6.2 thou/uL (4.0-11.0)
[2018-07-09 06:03] LABS: ALBUMIN 3.3 g/dL (3.4-5.0); CALCIUM 9.7 mg/dL (8.5-10.1); CREATININE 1.5 mg/dL (0.6-1.3); MAGNESIUM 2.5 mg/dL (1.8-2.4); POTASSIUM 3.6 mmol/L (3.5-5.1); TOTAL BILIRUBIN 0.5 mg/dL (<0.1-1.0); TOTAL PROTEIN 7.5 g/dL (6.4-8.2)
--- NOTE | 2018-07-09 06:49 | CON ---
[address] [address] CONSULTATION Name: AMBAR SOSA Room: [address] IN ..#: [id number] Admission: 06/30/18 Attend Phys: Pat Gan MD Discharge: Date of : 48 Report #: [id number] THIS REPORT FOR: //name// CC: STACI physician/PCP Pat Gan REASON FOR CONSULTATION: Cough, shortness of breath. HISTORY OF PRESENT ILLNESS: This is a 68-year-old female patient who was admitted to this facility on 06/30/2018 with increasing shortness of breath. She had also increased lower extremity edema. She has chronic lymphedema. She had no chest pain, cough or congestion or fever at that time. She was treated as congestive heart failure, diastolic dysfunction. She was seen by Cardiology and she started back on her Lasix initially IV, then changed to p.o. Overall, she has been improving and she was about to be transferred to the rehab unit. Then her symptoms started again with increasing cough, nasal congestion and sore throat. She does not recall having being in contact with people with cold symptoms, but current symptom is highly consistent with cold symptoms. In addition to that, she started having more shortness of breath and wheezes. The patient told me she smoked for only 1 week long time ago. Few weeks ago, she was given albuterol inhaler. Also in the past, she told me she had episodes of bronchitis where she had a wheeze, for which she was treated with albuterol. She had currently no fever, no headache, no blurring of vision. Her lower extremity edema is much better. She had dressing on both lower extremities, which I did not disturb. ALLERGIES: ASPIRIN, STADOL, CLINDAMYCIN, CODEINE, HYDROCODONE, IBUPROFEN, SULFA, TRAMADOL and MEPERIDINE. PAST MEDICAL HISTORY: Chronic lymphedema, diastolic heart failure, diabetes mellitus, PTSD, morbid obesity, congestive heart failure, kyphoplasty, left lower extremity paresis, atherosclerosis, coronary artery disease. SOCIAL HISTORY: As mentioned above. SOCIAL HISTORY: No significant smoking history. No secondhand smoke exposure. FAMILY HISTORY: Reviewed with the patient, noncontributory to the above. REVIEW OF SYSTEMS: Twelve-point review of systems reviewed with the patient and negative other than as mentioned above. PHYSICAL EXAMINATION: VITAL SIGNS: She was on room air O2 saturation more than 90%, blood pressure 127/45, pulse rate of 74, temperature 36.5. GENERAL: Awake, alert, oriented, speaks in full [place], [place] [address] CONSULTATION Name: AMBAR SOSA Room: [address]#: [id number] Admission: 06/30/18 Attend Phys: Pat Gan MD Discharge: Date of : 48 Report #: [id number] interrupted with cough. HEENT: Head: Normocephalic, atraumatic. Pupils are reactive to light. Some nasal redness. Sounded congested with nasal speech. External ear looks healthy and normal. Oral cavity: Mallampati of 2 with moist mucous membrane. NECK: Full range of movement, nontender. CHEST: Diminished air movement bilaterally, prolonged expiratory phase. No definite wheezes. HEART: S1, S2, no murmur. ABDOMEN: Obese, soft, lax, benign, nontender. EXTREMITIES: Lower extremity lymphedema noted. She has dressing in both lower extremities: I did not disturb. No lymphadenopathy. LABORATORY DATA: Her last white blood count July 04, 5.8; hemoglobin 11.2; platelets 227. Her creatinine is 1.4 today, it was 1.2 upon hospitalization. Her INR is 1. She had multiple chest x-rays, the last one was July 04, all consistent with congestive heart failure, changes with signs of pulmonary vascular congestion. IMPRESSION: 1. Acute hypoxic respiratory failure, improved. 2. Lymphedema. 3. Diastolic heart failure. 4. Hypertension. 5. Diabetes mellitus. 6. Bronchospasm now. 7. Suspected respiratory viral illness. The patient with history suggestive of hyperreactive airway disease with cold symptoms ongoing to increase frequency of her nebulization treatment. We will start her on steroids. She needs a chest x-ray, the last one was 4 days ago, antibiotic being managed by ID for the lower extremity cellulitis. Diuresis per Cardiology. Thank you for the consult. <ELECTRONICALLY SIGNED> By: Ashely Parra MD 07/09/18 0649 [id number] [id number] Conner MD /nt
[2018-07-09 08:54] VITALS: BP 140/42
[2018-07-09 16:29] VITALS: BP 139/63
[2018-07-09 19:40] VITALS: BP 151/69
[2018-07-10 08:00] VITALS: BP 142/72
[2018-07-10 12:00] VITALS: BP 142/70
[2018-07-10] MEDS ORDERED: IRON325 PO (12:11)
[2018-07-10] MEDS ORDERED: PREDNISONE 20 M20 MG PO (12:11)
[2018-07-10] MEDS ORDERED: LASIX 40 MG TAB40 M1 PO (12:11)
[2018-07-10] MEDS ORDERED: IPRAT-ALBUT 0.5-3 ML INH (12:11)
[2018-07-10] MEDS ORDERED: HUMALOG100 UNIT/1 SUBQ (12:11)
[2018-07-10] MEDS ORDERED: DULCOLAX5 MG PO (12:11)
[2018-07-10] MEDS ORDERED: VITAMIN C1000 MG PO (12:11)
[2018-07-10] MEDS ORDERED: NYAMYC15 GM TOP (12:11)
[2018-07-10] MEDS ORDERED: BENZONATATE100 MG PO (12:11)
[2018-07-10] MEDS ORDERED: FLONASE 0.05%50 MCG NASAL (12:11)
[2018-07-10] MEDS ORDERED: GLUCOPHAGE500 MG PO (12:11)
== END 2018-07-10 15:24 | DRG 602 ==
LOC: M.ERS 16:28 → M.2W 17:48 → M.TBA-ER 17:48 → M.2W 21:18
PROVIDERS: Family Medicine; Internal Medicine; Internal Medicine Cardiovascular Disease; ADMIT Family Medicine
DX: L03.115 Cellulitis of right lower limb (principal); I50.33 Acute on chronic diastolic (congestive) heart failure; J96.21 Acute and chronic respiratory failure with hypoxia; N18.6 End stage renal disease; I13.2 Hypertensive heart and chronic kidney disease with heart failure and with stage 5 chronic kidney disease, or end stage renal disease; J44.1 Chronic obstructive pulmonary disease with (acute) exacerbation; Z68.44 Body mass index [BMI] 60.0-69.9, adult; I42.9 Cardiomyopathy, unspecified; I89.0 Lymphedema, not elsewhere classified; E11.22 Type 2 diabetes mellitus with diabetic chronic kidney disease; Z66 Do not resuscitate; I87.2 Venous insufficiency (chronic) (peripheral); J98.01 Acute bronchospasm; D50.9 Iron deficiency anemia, unspecified; E11.65 Type 2 diabetes mellitus with hyperglycemia; E66.01 Morbid (severe) obesity due to excess calories; F43.10 Post-traumatic stress disorder, unspecified; I25.10 Atherosclerotic heart disease of native coronary artery without angina pectoris; T38.0X5A Adverse effect of glucocorticoids and synthetic analogues, initial encounter; Z96.653 Presence of artificial knee joint, bilateral; G47.419 Narcolepsy without cataplexy; Z87.891 Personal history of nicotine dependence; Z88.6 Allergy status to analgesic agent; Z88.8 Allergy status to other drugs, medicaments and biological substances; Z88.1 Allergy status to other antibiotic agents; Z88.2 Allergy status to sulfonamides; Z79.899 Other long term (current) drug therapy; Z85.3 Personal history of malignant neoplasm of breast; Z82.49 Family history of ischemic heart disease and other diseases of the circulatory system; Z83.3 Family history of diabetes mellitus; Z90.11 Acquired absence of right breast and nipple; Y92.89 Other specified places as the place of occurrence of the external cause

== ENCOUNTER 2018-07-10 14:08 | Inpatient (IN) | payer OTHER ==
[~2018-07-10] VITALS: Ht 154.9 cm; Wt 124.3 kg
--- NOTE | ~2018-07-10 | D ---
[facility] [address] [place] [address] DISCHARGE SUMMARY Name: AMBAR SOSA Room: [address] IN .R.#: [id number] Admission: 07/10/18 Attend Phys: Adilene Prince DO Discharge: Date of : 48 Report #: [id number] THIS REPORT FOR: //name// CC: [facility] physician/PCP Adilene Prince HOSPITAL COURSE: The patient is status post hospitalization for acute inpatient rehabilitation due to debility, alterations in ambulation and activities of daily living with known cellulitis and bilateral lower extremity lymphedema. She is discharged to the home setting with fall precautions. FOLLOWUP: 1. [facility] or other [facility] within 1 week. 2. Follow up with wound care and lymphedema, both home health and then outpatient. MEDICATIONS: Reviewed and reconciled by myself and are available in the MAR. She will maintain her home regimen with her diabetic care. DISCHARGE PHYSICAL EXAMINATION: GENERAL: Alert, oriented, in no apparent distress. VITAL SIGNS: Reviewed and are stable. HEENT: Head atraumatic, normocephalic. Pupils equal, round, reactive. ABDOMEN: Soft, nontender, nondistended. NEUROLOGIC: Cranial nerves 2-12 are grossly intact. No focal neuro deficits. By: 1428 [id number] Prince DO /nt
[~2018-07-10 14:08] MED LIST changes: +ALEVE220 MG PO; +BENZONATATE100 MG PO; +CENTRUM SILVER1 EAC4 PO; +CLONAZEPAM 0.50.5 M1 PO; +COREG25 M1 PO; +DULCOLAX5 MG PO; +FLONASE 0.05%50 MCG NASAL; +FORTAMET500 MG PO; +GABAPENTIN 100100 MG PO; +GLUCOPHAGE500 MG PO; +HUMALOG100 UNIT/1 SUBQ; +IPRAT-ALBUT 0.5-3 ML INH; +IRON325 PO; +LASIX 40 MG TAB40 M1 PO; +NYAMYC15 GM TOP; +OMEPRAZOLE20 MG PO; +PREDNISONE 20 M20 MG PO; +PROAIR RESPICL90 MCG INH; +VITAMIN C1000 MG PO
[2018-07-10 18:21] VITALS: BP 129/60
[2018-07-10 21:15] VITALS: BP 138/69
[2018-07-11 04:55] LABS: HEMOGLOBIN 13.1 gm/dL (12.0-15.0); MCH 29.8 pg (26.0-34.0); MCHC 32.8 g/dL (28.0-37.0); MPV 9.2 fl. (7.2-11.1); RBC 4.4 mil/uL (4.20-5.00); RDW-CV 14.6 % (10.5-14.5); WBC 10.9 thou/uL (4.0-11.0)
[2018-07-11 05:01] LABS: CALCIUM 9.3 mg/dL (8.5-10.1); CREATININE 1.5 mg/dL (0.6-1.3); POTASSIUM 3.4 mmol/L (3.5-5.1)
[2018-07-11 07:45] VITALS: BP 124/46
[2018-07-11 19:15] VITALS: BP 117/48
[2018-07-12 07:57] VITALS: BP 139/56
[2018-07-12 20:09] VITALS: BP 108/59
[2018-07-13 04:54] LABS: CALCIUM 9.2 mg/dL (8.5-10.1); CREATININE 1.5 mg/dL (0.6-1.3); MAGNESIUM 2.1 mg/dL (1.8-2.4)
[2018-07-13 04:56] LABS: POTASSIUM 2.8 mmol/L (3.5-5.1)
[2018-07-13 08:00] VITALS: BP 160/63
[2018-07-13] MEDS ORDERED: SPIRONOLACTONE25 MG PO (11:10)
[2018-07-13 20:09] VITALS: BP 106/55
[2018-07-14 04:30] LABS: CALCIUM 9.8 mg/dL (8.5-10.1); CREATININE 1.5 mg/dL (0.6-1.3)
[2018-07-14 04:41] LABS: POTASSIUM 3.9 mmol/L (3.5-5.1)
[2018-07-14 20:14] VITALS: BP 102/52
[2018-07-15 02:00] VITALS: BP 120/58
[2018-07-15 07:00] VITALS: BP 147/74
[2018-07-15 16:15] VITALS: BP 138/76
[2018-07-15 20:00] VITALS: BP 130/66
[2018-07-16 04:19] LABS: HEMATOCRIT 38.6 % (37.0-47.0); HEMOGLOBIN 12.4 gm/dL (12.0-15.0); MCH 29.4 pg (26.0-34.0); MCHC 32.2 g/dL (28.0-37.0); MCV 91.4 fL (80.0-100.0); MPV 8.7 fl. (7.2-11.1); RBC 4.22 mil/uL (4.20-5.00); WBC 11.6 thou/uL (4.0-11.0)
[2018-07-16 04:38] LABS: CALCIUM 10.1 mg/dL (8.5-10.1); CREATININE 1.5 mg/dL (0.6-1.3); MAGNESIUM 1.8 mg/dL (1.8-2.4); POTASSIUM 3.5 mmol/L (3.5-5.1)
[2018-07-16 08:12] VITALS: BP 107/68
[2018-07-16 20:00] VITALS: BP 155/61
[2018-07-17 08:22] VITALS: BP 137/70
[2018-07-17 19:30] VITALS: BP 145/60
[2018-07-18 04:29] LABS: HEMATOCRIT 39.7 % (37.0-47.0); HEMOGLOBIN 12.8 gm/dL (12.0-15.0); MCH 29.3 pg (26.0-34.0); MCHC 32.2 g/dL (28.0-37.0); MCV 91.3 fL (80.0-100.0); MPV 8.7 fl. (7.2-11.1); RBC 4.35 mil/uL (4.20-5.00); RDW-CV 15.3 % (10.5-14.5); WBC 11.5 thou/uL (4.0-11.0)
[2018-07-18 04:44] LABS: CALCIUM 9.8 mg/dL (8.5-10.1); CREATININE 1.5 mg/dL (0.6-1.3); MAGNESIUM 1.5 mg/dL (1.8-2.4); POTASSIUM 3.5 mmol/L (3.5-5.1)
[2018-07-18 07:30] VITALS: BP 136/66
[2018-07-18 16:38] VITALS: BP 129/54
[2018-07-18 21:00] VITALS: BP 117/63
[2018-07-19 07:57] VITALS: BP 136/87
[2018-07-19 16:13] VITALS: BP 112/86
[2018-07-19 20:15] VITALS: BP 125/80
[2018-07-20 20:05] VITALS: BP 140/82
[2018-07-21 04:43] LABS: CALCIUM 9.4 mg/dL (8.5-10.1); CREATININE 1.6 mg/dL (0.6-1.3); MAGNESIUM 1.8 mg/dL (1.8-2.4); POTASSIUM 3.8 mmol/L (3.5-5.1)
[2018-07-21 08:00] VITALS: BP 146/81
[2018-07-21] MEDS ORDERED: LANTUS100 UNIT/M SUBQ (15:47)
[2018-07-21] MEDS ORDERED: HUMALOG100 UNIT/1 SUBQ (15:47)
[2018-07-21 20:04] VITALS: BP 158/85
[2018-07-22 08:30] VITALS: BP 114/69
[2018-07-22 20:33] VITALS: BP 135/80
[2018-07-23 07:00] VITALS: BP 125/105
[2018-07-23 16:10] VITALS: BP 141/81
[2018-07-23 20:25] VITALS: BP 128/74
[2018-07-24 07:30] VITALS: BP 145/85
[2018-07-24 16:25] VITALS: BP 109/60
[2018-07-24 20:00] VITALS: BP 129/59
[2018-07-25 08:51] VITALS: BP 168/85
[2018-07-25 17:03] VITALS: BP 156/76
[2018-07-25 20:00] VITALS: BP 138/63; BP 139/63
[2018-07-26 04:05] LABS: HEMATOCRIT 38.9 % (37.0-47.0); HEMOGLOBIN 12.9 gm/dL (12.0-15.0); MCH 30.5 pg (26.0-34.0); MCHC 33.2 g/dL (28.0-37.0); MCV 91.9 fL (80.0-100.0); MPV 8.8 fl. (7.2-11.1); RBC 4.23 mil/uL (4.20-5.00); RDW-CV 15.3 % (10.5-14.5); WBC 7.9 thou/uL (4.0-11.0)
[2018-07-26 04:14] LABS: CALCIUM 9.4 mg/dL (8.5-10.1); CREATININE 1.4 mg/dL (0.6-1.3); MAGNESIUM 1.4 mg/dL (1.8-2.4); POTASSIUM 3.6 mmol/L (3.5-5.1)
[2018-07-26 07:45] VITALS: BP 153/72
[2018-07-26 20:28] VITALS: BP 146/78
[2018-07-27 08:27] VITALS: BP 149/78
[2018-07-27 20:28] VITALS: BP 132/77
[2018-07-28 08:00] VITALS: BP 134/76
[2018-07-28 20:32] VITALS: BP 100/58
[2018-07-29 07:00] VITALS: BP 130/86
[2018-07-29 10:20] VITALS: BP 117/70
[2018-07-29 15:55] VITALS: BP 133/64
[2018-07-29 18:50] VITALS: BP 152/68
[2018-07-30 07:30] VITALS: BP 138/61
[2018-07-30 20:10] VITALS: BP 113/70
[2018-07-31 08:00] VITALS: BP 147/82
[2018-07-31 20:10] VITALS: BP 147/73
[2018-08-01 07:30] VITALS: BP 136/66
[2018-08-01 17:07] VITALS: BP 135/72
[2018-08-01 20:00] VITALS: BP 137/64
[2018-08-02 07:44] VITALS: BP 143/81
[2018-08-02 16:00] VITALS: BP 126/67
[2018-08-02 20:00] VITALS: BP 135/73
[2018-08-03 04:46] LABS: HEMATOCRIT 35.4 % (37.0-47.0); HEMOGLOBIN 11.5 gm/dL (12.0-15.0); MCH 30.1 pg (26.0-34.0); MCHC 32.5 g/dL (28.0-37.0); MCV 92.6 fL (80.0-100.0); MPV 8.4 fl. (7.2-11.1); RBC 3.82 mil/uL (4.20-5.00); RDW-CV 15.5 % (10.5-14.5); WBC 5.6 thou/uL (4.0-11.0)
[2018-08-03 05:29] LABS: CALCIUM 9.2 mg/dL (8.5-10.1); CREATININE 1.5 mg/dL (0.6-1.3); MAGNESIUM 1.7 mg/dL (1.8-2.4); POTASSIUM 3.5 mmol/L (3.5-5.1)
[2018-08-03 08:00] VITALS: BP 142/85
--- NOTE | 2018-08-03 14:18 | PLAN ---
[facility] [address] [place] [address] REHAB UNIT PLAN OF CARE Name: AMBAR SOSA Room: [address] IN [facility].#: [id number] Admission: 07/10/18 Attend Phys: Adilene Prince DO Discharge: Date of : 48 Report #: [id number] THIS REPORT FOR: //name// CC: STACI physician/PCP Adilene Prince HISTORY OF PRESENT ILLNESS: This is a 68-year-old female admitted to inpatient rehabilitation to facilitate safe discharge home, status post acute hospitalization beginning on 06/30/2018 for CHF exacerbation, multiple medical comorbidities including uncontrolled diabetes further complicated by high dose steroids and a taper as well as other multiple medical comorbidities and morbid obesity. She is O2-dependent, is requiring more oxygen at this time. She has needs in physical and occupational therapy as well as speech and language pathology. Previous level of function was modified independent to independent with activities of daily living. Current level of function is [id number] assistance of 1-2 depending on therapy, activity and time of day. Estimated length of stay is 12-14 days with discharge disposition to the home setting where she does live alone in a duplex, but has accessible house and friends that can help her. MEDICAL PROGNOSIS: Good. REHABILITATION PROGNOSIS: Good. Physical therapy will see the patient 60-90 minutes per day, 5 days per week, working on upper and lower body strength, balance, coordination, navigation. Occupational therapy will work with the patient 60-90 minutes per day, 5 days per week, working on upper and lower body strength, balance, coordination, navigation, bathing, dressing, and toileting. Speech language pathology will work with the patient 30-90 minutes per day, 5 days per week, working on comprehension, expression, social interaction, problem solving and memory. This is an overall plan of care, may change from time to time. We will team weekly and make changes to plan of care as needed. <ELECTRONICALLY SIGNED> By: Adilene Prince DO 08/03/18 1418 1140 [id number] Prince DO /nt
--- NOTE | 2018-08-03 14:18 | H ---
[facility] [address] [place] [address] HISTORY AND PHYSICAL Name: AMBAR SOSA Room: [address] IN [facility].#: [id number] Admission: 07/10/18 Attend Phys: Adilene Prince DO Discharge: Date of : 48 Report #: [id number] THIS REPORT FOR: //name// CC: STACI physician/PCP Adilene Prince DATE OF SERVICE: 07/10/2018 C is 09. HISTORY OF PRESENT ILLNESS: This is a 68-year-old female, admitted to inpatient rehabilitation to facilitate safe discharge home, status post acute hospitalization at [facility], beginning on 06/30/2018 with a complaint of shortness of air, increased swelling in the bilateral lower extremities, diagnosed with CHF exacerbation, alterations in activities of daily living from a previous level of function of modified independent to independent, with 1-week history of increasing lymphedema. She does have chronic diastolic congestive heart failure. She has uncontrolled diabetes, which is further uncontrolled by steroid burst dose and taper. She is morbidly obese, on 2 liters of oxygen per nasal cannula at baseline and was in acute hypoxic respiratory failure. Current level of function is minimum assistance of 1-2 depending on therapy, activity and time of day. She does have mild impairment of comprehension, expression, social interaction, problem solving and memory. No changes since the preadmission screening. Estimated length of stay is 12-14 days. She does have an accessible house. She lives in a duplex. She does live alone, but does have friends in the area. PAST MEDICAL HISTORY: Hypertension, congestive heart failure, coronary artery disease. Diabetes, uncontrolled. PTSD. Chronic kidney disease 3. Anemia, morbid obesity, chronic hypoxic respiratory failure, right breast cancer, left lower extremity paresis, narcolepsy, bilateral lower extremity lymphedema, bilateral lower extremities. Stasis dermatitis, atherosclerosis, cardiomegaly, bronchitis. Dyspnea, O2 dependency. History of COPD. SURGICAL HISTORY: Bilateral total knee arthroplasties and a kyphoplasty. MEDICATIONS: Reviewed and reconciled by myself and are available in the [facility]. Diagnostic studies were reviewed and are available in [employer]. ALLERGIES: ASPIRIN, BUTORPHANOL, CLINDAMYCIN, CODEINE, HYDROCODONE, IBUPROFEN, SULFA, MEPERIDINE AND TRAMADOL. FAMILY HISTORY: Heart disease and diabetes. REVIEW OF SYSTEMS: A 14-point review of systems is done [place] [address] HISTORY AND PHYSICAL Name: AMBAR SOSA Room: [address] IN [facility]#: [id number] Admission: 07/10/18 Attend Phys: Adilene Prince DO Discharge: Date of : 48 Report #: [id number] as mentioned in HPI, specifically no fever, chest pain, shortness of breath, abdominal pain or distention, change in bowel or change in bladder. PHYSICAL EXAMINATION: GENERAL: Alert, oriented, in no apparent distress. VITAL SIGNS: Reviewed and are stable. HEENT: Head atraumatic, normocephalic. Pupils equal, round, reactive. ABDOMEN: Soft, nontender, nondistended. NEUROLOGIC: Cranial nerves 2-12 are grossly intact. No focal neuro deficits, 5/5 strength in bilateral upper and lower extremities. SKIN: Warm and dry. No rashes or lesions noted. She does have bilateral lower extremity lymphedema and bilateral lower extremity venous stasis dermatitis. ASSESSMENT: 1. Congestive heart failure exacerbation with alterations in activities of daily living. 2. Lymphedema, venous stasis Multiple medical comorbidities requiring acute medical care including 1. Uncontrolled diabetes, further complicated by high dose steroids. 2. Hypertension, CHF, kidney disease, morbid obesity and hypoxic respiratory failure. PLAN: 1. Admission to inpatient rehabilitation. 2. PT, OT, speech, case management, nursing and HIMS to make evaluations and recommendations. 3. Plan of care is pending. 4. We will team her weekly. 5. Medications were reviewed and reconciled. 6. Lymphedema consult when able. <ELECTRONICALLY SIGNED> By: Adilene Prince DO 08/03/18 1418 1138 1201Adilene Prince DO /paulo
[2018-08-03 20:40] VITALS: BP 126/62
[2018-08-04 08:00] VITALS: BP 121/79
[2018-08-04 20:00] VITALS: BP 138/75
[2018-08-05 05:23] VITALS: BP 138/75
[2018-08-05 08:00] VITALS: BP 138/75
[2018-08-05] MEDS ORDERED: PROVIGIL 200 M200 M1 PO (10:35)
[2018-08-05] MEDS ORDERED: GLUCOTROL5 MG PO (10:35)
[2018-08-05 11:59] VITALS: BP 138/75
== END 2018-08-05 14:45 | disposition home health service (06) | DRG 291 ==
LOC: M.REH 14:08
PROVIDERS: Family Medicine; Internal Medicine; ADMIT Physical Medicine & Rehabilitation
DX: I13.0 Hypertensive heart and chronic kidney disease with heart failure and stage 1 through stage 4 chronic kidney disease, or unspecified chronic kidney disease (principal); J96.21 Acute and chronic respiratory failure with hypoxia; I50.33 Acute on chronic diastolic (congestive) heart failure; J44.1 Chronic obstructive pulmonary disease with (acute) exacerbation; L03.116 Cellulitis of left lower limb; Z68.43 Body mass index [BMI] 50.0-59.9, adult; I25.10 Atherosclerotic heart disease of native coronary artery without angina pectoris; N18.3 Chronic kidney disease, stage 3 (moderate); E66.01 Morbid (severe) obesity due to excess calories; Z96.653 Presence of artificial knee joint, bilateral; E11.65 Type 2 diabetes mellitus with hyperglycemia; E11.22 Type 2 diabetes mellitus with diabetic chronic kidney disease; I87.2 Venous insufficiency (chronic) (peripheral); G47.419 Narcolepsy without cataplexy; F43.10 Post-traumatic stress disorder, unspecified; I89.0 Lymphedema, not elsewhere classified; Z60.2 Problems related to living alone; H92.01 Otalgia, right ear; E83.42 Hypomagnesemia; D50.9 Iron deficiency anemia, unspecified; Z85.3 Personal history of malignant neoplasm of breast; Z99.81 Dependence on supplemental oxygen; Z88.6 Allergy status to analgesic agent; Z88.8 Allergy status to other drugs, medicaments and biological substances; Z88.1 Allergy status to other antibiotic agents; Z79.899 Other long term (current) drug therapy; Z88.2 Allergy status to sulfonamides

== ENCOUNTER → 2018-09-28 | Outpatient (CLI) | payer OTHER ==
[~2018-09-28] MED LIST changes: +GLUCOTROL5 MG PO; +LANTUS100 UNIT/M SUBQ; +SPIRONOLACTONE25 MG PO
--- NOTE | 2018-09-30 16:06 | PATH ---
[address] [address] PATHOLOGY RPT PROCEDURE Name: [facility]ER [facility]AST Room: [facility] DENAE Garcia#: [id number] Admission: 09/28/18 Date of : 48 Discharge: Report #: [id number] Path Case #: [id number] [facility] Accession Number: [id number] . 01 Material submitted: . RIGHT BREAST CALCIFICATIONS . 01 Clinical history: . Right breast stereotactic biopsy for calcifications . 02 Diagnosis: Right breast calcifications, stereotactic biopsy: - DUCTAL CARCINOMA IN SITU (DCIS), NUCLEAR GRADE III, SPANNING AT LEAST 5 MM, PAPILLARY AND CLINGING TYPES, ASSOCIATED WITH COARSE LUMINAL CALCIFICATIONS. SEE COMMENT. . (KATERYNA:jackelyn; 09/30/2018) QMS/09/30/2018 . 02 Comment: Estrogen and progesterone receptor studies are pending on A1 and will be the subject of an addendum report. Reviewed with Dr. Pan Luque, who agrees with the diagnosis. Linda (acting [facility] Breast Navigator) notified at approximately 1445 on 09/30/2018). . (KATERYNA:jackelyn; 09/30/2018) . 02 Electronically signed: . Thomas Almonte MD, Pathologist NPI- [id number] . 01 Gross description: . Received in formalin labeled "[place], right breast calcifications," are multiple needle cores of yellow-ramos fibrofatty tissue measuring 3.3 x 2.8 x 0.7 cm in aggregate dimensions. Additionally received in the same container is a blue plastic cassette containing multiple needle cores of yellow-ramos fibrofatty tissue measuring 3.2 x 2.5 x 0.6 cm in aggregate dimensions. The tissue in the cassette is transferred to cassette A1, and the remaining tissue is submitted in its entirety in cassettes A2 and A3. The cold ischemic time is 7 minutes. The total formalin fixation time is 31 hours and 18 minutes. (TSD; 09/28/2018) TOB/TOB . 02 Pathologist provided ICD-10: D05.11 . 02 [place] [address] PATHOLOGY RPT PROCEDURE Name: [facility]ER [facility]AST [id number] Admission: 09/28/18 Date of : 48 Discharge: Report #: [id number] Path Case #: [id number] Specimen Comment: A courtesy copy of this report has been sent to Specimen Comment: [phone], . Specimen Comment: Report sent to / DR VANG Performed at: 01 [facility] [address], [place], [place] [id number] MD Bridger Gonzalez MD Phone: [phone] Performed at: [address] [address] [address], [place], [place] [id number] MD Thomas Almonte MD Phone: [phone]
== END | disposition home or self-care (01) ==
LOC: M.RAD 10:07
DX: D05.11 Intraductal carcinoma in situ of right breast (principal); R92.1 Mammographic calcification found on diagnostic imaging of breast; I50.9 Heart failure, unspecified; J44.1 Chronic obstructive pulmonary disease with (acute) exacerbation; Z88.2 Allergy status to sulfonamides; Z88.6 Allergy status to analgesic agent; Z88.8 Allergy status to other drugs, medicaments and biological substances; Z79.899 Other long term (current) drug therapy; Z98.890 Other specified postprocedural states

== ENCOUNTER → 2018-10-19 | Outpatient (CLI) | payer OTHER | LOC: M.RAD 12:21 | DX: N63.22 Unspecified lump in the left breast, upper inner quadrant (principal); D05.11 Intraductal carcinoma in situ of right breast ==

== ENCOUNTER 2018-11-09 06:37 | Observation (INO) | payer OTHER ==
[~2018-11-09] VITALS: Ht 157.5 cm; Wt 134.7 kg
[2018-11-09 07:27] LABS: HEMATOCRIT 34.7 % (37.0-47.0); HEMOGLOBIN 11.2 gm/dL (12.0-15.0); MCH 29.2 pg (26.0-34.0); MCHC 32.1 g/dL (28.0-37.0); MPV 7.5 fl. (7.2-11.1); RBC 3.82 mil/uL (4.20-5.00); RDW-CV 14.4 % (10.5-14.5); WBC 6.7 thou/uL (4.0-11.0)
[2018-11-09 07:40] LABS: CALCIUM 9.7 mg/dL (8.5-10.1); CREATININE 1.3 mg/dL (0.6-1.3); POTASSIUM 3.8 mmol/L (3.5-5.1)
[2018-11-09] MEDS ORDERED: IBUPROFEN 600600 M1 PO (12:24)
--- NOTE | 2018-11-09 17:08 | NUR ---
PT ARRIVED FROM PACU ABOUT 1640. PT STABLE. ON 2LOX. SURGICAL SITE IS CLEAN, DRY AND INTACT. R LIMB ALERT. URINATED IN BEDPAN UPON ARRIVAL. TOLERATING FOOD. SCDs IN PLACE. ASSESSMENT COMPLETE. FALL PRECAUTIONS IN PLACE. CALL LIGHT WITHIN PLACE. WILL CONTINUE TO MONITOR.
[2018-11-09 17:36] VITALS: BP 160/75
[2018-11-09 20:00] VITALS: BP 155/60
[2018-11-09 23:25] VITALS: BP 160/65
[2018-11-10 04:00] VITALS: BP 138/55
[2018-11-10 04:44] LABS: ABSOLUTE MONOCYTES 0.4 thou/uL (0.0-1.2); ABSOLUTE NEUTROPHILS 6.6 thou/uL (1.6-8.1); BASOPHILS 0.6 %; HEMATOCRIT 31.5 % (37.0-47.0); HEMOGLOBIN 10.3 gm/dL (12.0-15.0); LYMPHOCYTES 12.4 %; MCH 29.8 pg (26.0-34.0); MCHC 32.7 g/dL (28.0-37.0); MCV 91.3 fL (80.0-100.0); MONOCYTES 5.5 %; MPV 8.3 fl. (7.2-11.1); NUCLEATED RBCS 0 /100WBC; PLATELET COUNT* 248 thou/uL (150-400); POLYS 81.5 %; RBC 3.45 mil/uL (4.20-5.00); RDW-CV 14.4 % (10.5-14.5); WBC 8.1 thou/uL (4.0-11.0)
[2018-11-10 04:59] LABS: CREATININE 1.2 mg/dL (0.6-1.3); MAGNESIUM 2.2 mg/dL (1.8-2.4); POTASSIUM 4.6 mmol/L (3.5-5.1)
--- NOTE | 2018-11-10 05:05 | NUR ---
this nurse assumes care of pt 11/09/18 at 1920, pt is alert and oriented x4, pleasant, talkative, and coopertive, pt grimaces and yells out frequently when turned or touched, does not require or request medication for pain, incision to right breast c/d/i, loosly applied dressing placed to area per pt request, pt uses pillow to axilla and is compliant with limited use of right arm, pt uses bedpan x1, up to bsc with standby assist x2, voids clear yellow urine, pt remains on 2L supplemental o2 throughout the night, 02 sat 95%-96%, 0s sat drops to 87%-89% while asleep, this morning at 0445 pt on room air, 02 sat 96%, pt plans to discharge to home today, she has questions about the need of radiation treatment for breast cancer, she is told this can be discussed with physician prior to discharge
[2018-11-10 09:05] VITALS: BP 117/44
[2018-11-10 10:57] VITALS: BP 117/44
--- NOTE | 2018-11-10 11:47 | NUR ---
ASSUMED CARE OF PT AROUND 0730 THIS AM. REFER TO ASSESSMENT. PT HAS NO C/O PAIN THIS AM. REFUSED TO HAVE HER BLOOD SUGAR CHECKED AND STATES SHE DOESN'T WAKE UP AND EAT TILL 4PM. PT HAS DC ORDERS. AWAITING ROUNDING FROM SURGICAL PHYSICIAN AND ANTICIPATE DC THIS AFTERNOON. NO OTHER CONCERNS AT THIS TIME. CLWR. WCTM.
--- NOTE | 2018-11-10 12:27 | NUR ---
DC INSTRUCTIONS GIVEN TO PT AT THIS TIME AND PT VERBALIZES UNDERSTANDING. PT HAS NEIGHBOR FRIENDS ON THEIR WAY TO TRANSPORT PT HOME. NO OTHER CONCERNS AT THIS TIME. CLWR. WCTM.
--- NOTE | 2018-11-10 13:42 | NUR ---
PT DC'D AT THIS TIME. NO OTHER CONCERNS AT THIS TIME.
--- NOTE | 2018-11-11 16:06 | PATH ---
[address] [address] PATHOLOGY RPT PROCEDURE Name: CHER EAST Room: [address] Tisha Garcia#: [id number] Admission: 11/09/18 Date of : 48 Discharge: 11/10/18 Report #: [id number] Path Case #: [id number] LCA Accession Number: [id number] . 01 Material submitted: . PART A: breast - RIGHT BREAST TISSUE DCIS. Modifiers: right PART B: breast - RIGHT BREAST NEW MEDIAL MARGIN. Modifiers: right, medial PART C: breast - RIGHT BREAST NEW SUPERIOR MARGIN. Modifiers: right, superior PART D: breast - RIGHT BREAST NEW LATERAL MARGIN. Modifiers: right, lateral PART E: breast - RIGHT BREAST NEW INFERIOR MARGIN. Modifiers: right, inferior PART F: breast - RIGHT BREAST NEW POSTERIOR MARGIN. Modifiers: right, posterior PART G: breast - RIGHT BREAST NEW ANTERIOR MARGIN. Modifiers: right, anterior . 01 Clinical history: . Malignant neoplasm of right upper outer quadrant of right breast Right breast CA . 02 Diagnosis: A. 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 SEE COMMENT. . B. Right breast new medial margin: - Benign breast tissue, negative for atypia. . C. Right breast new superior margin: - Benign fat. . D. Right breast new lateral margin: - Benign breast tissue with luminal calcification and incidental traumatic neuroma, negative for atypia. . E. Right breast new inferior margin: - Benign breast tissue, negative for atypia. . F. Right breast new posterior margin: - Benign breast tissue, negative for atypia. . G. Right breast new anterior margin: - Benign breast tissue, negative for atypia. See comment. (KATERYNA:jackelyn; 11/11/2018) QMS/11/11/2018 [place] [address] PATHOLOGY RPT PROCEDURE Name: CHER EAST Room: [facility] Tisha Garcia#: [id number] Admission: 11/09/18 Date of : 48 Discharge: 11/10/18 Report #: [id number] Path Case #: [id number] . 02 Comment: Surgical Pathology Cancer Case Summary . Protocol posting date: August 2018 . DCIS OF THE BREAST: Resection . Procedure ___ Other (specify): Wire localization lumpectomy . Specimen Laterality ___ Right . + Tumor Site + ___ Upper, outer quadrant . Size (Extent) of DCIS Estimated size (extent) of DCIS is at least (millimeters) 15 mm + Number of blocks with DCIS: 3 + Number of blocks examined: 34 . Histologic Type ___ Ductal carcinoma in situ . + Architectural Patterns (select all that apply) + ___ Other (specify: Clinging) . Nuclear Grade ___ Grade III (high) . Necrosis ___ Not identified . Margins ___ Uninvolved by DCIS Distance from closest margin - Cannot be determined (explain): Additional wider margin (G) taken from lumpectomy without clear relationship, however, estimated to be approximately 4.8 mm away. See comment. . Specify closest margin (required only if <10mm): ___ Anterior . Regional Lymph Nodes ___ No lymph nodes submitted or found . PATHOLOGIC STAGE CLASSIFICATION (pTNM, AJCC 8TH EDITION) [place] [address] PATHOLOGY RPT PROCEDURE Name: CHER EAST Room: [facility] Tisha Garcia#: [id number] Admission: 11/09/18 Date of : 48 Discharge: 11/10/18 Report #: [id number] Path Case #: [id number] Primary Tumor (pT) ___ pTis (DCIS): Ductal carcinoma in situ . Regional Lymph Nodes (pN) ___ Regional lymph nodes cannot be assessed . + Breast Biomarker Testing Performed on Previous Biopsy . + Estrogen Receptor (ER) + ___ Positive 95% . + Progesterone Receptor (PgR) + ___ Positive 75% . + Testing Performed on A1 . + Microcalcifications (select all that apply) + ___ Present in DCIS + ___ Present in nonneoplastic tissue . + Clinical History (select all that apply) Note: The current clinical/radiologic breast findings for which this surgery is performed include: . + ___ Prior history of breast cancer . + Specify site, diagnosis, and prior treatment: Previous right breast calcifications stereotactic biopsy showing DCIS, nuclear grade III, spanning at least 5 mm, associated with luminal calcifications ([id number]). . The span of DCIS seen in the lumpectomy (A) is based on its identification in A8, A9, and A13. The final marginal clearance is estimated at 4.8 mm based on the approximation of the DCIS in the lumpectomy to the anterior margin (0.8 mm) and the additional average thickness of the new anterior margin (G) of 4 mm. (KATERYNA:jackelyn; 11/11/2018) . 02 Electronically signed: . Thomas Almonte MD, Pathologist NPI- [id number] . 01 Gross description: . A. The specimen is received in formalin, labeled "[place], right breast DCIS" and consists of a 36 g oriented lumpectomy specimen with long suture lateral, short suture superior, and double deep. Protruding from the posterior lateral aspect is a localization wire. It measures 10.3 cm S-I, 2.7 cm A-P, 2.8 cm L-M, and is inked as follows: superior-blue, inferior-green, medial-red, lateral-yellow, anterior-orange, [place] [address] PATHOLOGY RPT PROCEDURE Name: CHER EAST [address]: [address]#: [id number] Admission: 11/09/18 Date of : 48 Discharge: 11/10/18 Report #: [id number] Path Case #: [id number] posterior-black. It is sectioned from superior to inferior revealing a solid white-duong mass with extensive previous biopsy changes both within and adjacent measuring 4.0 x 0.9 x 0.5 cm which extends from the margins as follows: Greater than 2 cm superior, 0.9 cm inferior, 0.2 cm medial, 0.1 cm lateral, 0.1 cm or less posterior, and 0.1 cm or less inferior. The rest of the parenchyma consists of yellow-orange lobulated tissue with minimal fibrous streaks and no additional masses or lesions. The specimen to include the entire mass is submitted as follows: . A1: Superior, perpendicular A2: Section just superior to mass A3-A13: Entire mass from superior-inferior A14: Section just inferior to mass A15: Inferior, perpendicular . The specimen was collected at 10:49 AM on 11/09/2018 and placed in formalin at 11:09 AM. The cold ischemic time is 20 minutes and the total formalin fixation time is greater than 6 hours but less than 72 hours. . B. The specimen is received in formalin, labeled "[place], right breast new medial margin" and consists of a 4 g, flat, plate-like segment of yellow-orange tissue measuring 3.0 x 2.8 cm, averaging 0.8 cm in thickness. A suture is present designating the "new medial margin" and this margin is inked red. Sectioning reveals no gross lesions and the specimen is entirely submitted in B1-B4. . C. The specimen is received in formalin, labeled "[place], right breast new superior margin" and consists of a 4 g, flat, plate-like segment of yellow-orange tissue measuring 3.4 x 3.3 cm, averaging 0.8 cm in thickness. A suture is present designating the "new superior margin" and this margin is inked blue. It is sectioned to reveal homogeneous yellow cut surfaces and no gross lesions. The specimen is entirely submitted in C1-C4. . D. The specimen is received in formalin, labeled "[place], right breast new lateral margin" and consists of a 1 g, flat, plate-like segment of yellow-pink fibroadipose tissue measuring 2.3 x 2.2 cm, averaging 0.5 cm in thickness. A suture is present designating the "new lateral margin" and this margin is inked yellow. Sectioning reveals fibrous cut surfaces with no gross lesions. The specimen is entirely submitted in D1-D2. . E. The specimen is received in formalin, labeled "[place], right breast new inferior margin" and consists of a 4 g, flat, plate-like segment of yellow-orange to pink fibroadipose tissue measuring 4.1 x 3.0 cm, averaging 0.9 cm in thickness. A suture is present designating the "new inferior margin" and this margin is inked green. Sectioning reveals no gross lesions and the specimen is entirely submitted in E1-E5. . F. The specimen is received in formalin, labeled "[place], [place] [address] PATHOLOGY RPT PROCEDURE Name: CHER EAST Room: [address] Tisha Garcia#: [id number] Admission: 11/09/18 Date of : 48 Discharge: 11/10/18 Report #: [id number] Path Case #: [id number] breast new posterior margin" and consists of a 1 g, flat, plate-like segment of yellow-orange to pink-duong fibroadipose tissue measuring 2.6 x 2.3 cm, averaging 0.5 cm in thickness. A suture is present designating the "new posterior margin" and this margin is inked black. Sectioning reveals no gross lesions and the specimen is entirely submitted in F1-F2. . G. The specimen is received in formalin, labeled "[place], right breast new anterior margin" and consists of a 1 g, flat, plate-like segment of yellow-orange lobulated tissue measuring 2.8 x 2.3 cm, averaging 0.4 cm in thickness. A suture is present designating the "new anterior margin" and this margin is inked orange. Sectioning reveals no gross lesions and the specimen is entirely submitted in G1. (SDY; 11/10/2018) SYU/SYU . 02 Pathologist provided ICD-10: D05.11, D36.10 . 02 CPT . 688448, 402118, 679562, 327525, 207235, 447790, 180137 Specimen Comment: A courtesy copy of this report has been sent to Specimen Comment: [phone], . Specimen Comment: Report sent to / DR CHILEL Performed at: [address], [place], [place] [id number] MD Bridger Gonzalez MD Phone: [phone] Performed at: [facility] [address], [place], [place] [address] MD Thomas Almonte MD Phone: [phone]
--- NOTE | 2018-11-14 11:59 | OP ---
[facility] [address] [place] [address] OPERATIVE REPORT Name: AMBAR SOSA Room: [address] Jose#: [id number] Admission: 11/09/18 Attend Phys: Pat Gan MD Discharge: 11/10/18 Date of : 48 Report #: [id number] THIS REPORT FOR: //name// CC: Vandana Palma DATE OF SERVICE: 11/09/2018 PREOPERATIVE DIAGNOSIS: Right breast cancer. POSTOPERATIVE DIAGNOSIS: Right breast cancer. PROCEDURE: Right breast needle localized lumpectomy. SURGEON: Vandana Paul MD. ICE GUARD SKATING RINK: OTTONIEL [place]. ANESTHESIA: General anesthesia. ESTIMATED BLOOD LOSS: 5 mL. COMPLICATIONS: None. FINDINGS: Clip and wire in the mammographic specimen. SPECIMENS: 1. Right breast DCIS. 2. Right breast new medial margin. 3. Right breast new superior margin. 4. Right breast new lateral margin. 5. Right breast new inferior margin. 6. Right breast new posterior margin. 7. Right breast new anterior margin. OTHER: Incision 5 cm in length, 17 cm from the nipple, 11 o'clock, crescent. INDICATIONS: The patient is a 68-year-old female who had imaging on 08/26/2018 showing an interval increase in fibroglandular tissue on the left and increased conspicuity of a 1.1 cm region of brooks in the upper outer right breast 14 cm from the nipple. A stereotactic biopsy on 09/28/2018 showed grade 3 DCIS, ER/WI positive. Recommendations for lumpectomy were discussed with the patient and delineated in the H and P and she agreed to proceed. DESCRIPTION OF PROCEDURE: The patient was brought to the operating room after informed consent had been obtained. She was [place] [address] OPERATIVE REPORT Name: AMBAR SOSA Room: [address]#: [id number] Admission: 11/09/18 Attend Phys: Pat Gan MD Discharge: 11/10/18 Date of : 48 Report #: [id number] the supine position. Preoperatively, she had been taken for wire localization of her calcifications. Her right breast and axilla were then prepped and draped in normal sterile manner. Her breast was extremely large and pendulous and difficult to manipulate. Prior to skin incision, a combination of 1% lidocaine plain and 0.5% Marcaine with epinephrine was used. A skin incision was made by the wire exit site with a knife. This was deepened into the subcutaneous tissues using the Bovie electrocautery. The wire trajectory seemed to go straight down through the breast almost to the end and it was very posterior in the breast seeming to go toward the inferior most pole of the breast. The Bovie electrocautery was used to excise a segment of tissue surrounding the pathway and tip of the wire. Once completely removed, the specimen was labeled for orientation purposes. It was placed in the mammographic specimen tray and sent off for mammogram evaluation. Mammogram did confirm that the clip and the lesion were indeed within the specimen. This wound bed was copiously irrigated with normal saline. It was noted to be adequately hemostatic. Attention was turned to the area of margins. The region of the medial margin was grasped with an Allis clamp. The Bovie electrocautery was used to excise a thin rim of tissue to encompass the new medial margin. This was then repeated in the superior, lateral, inferior, posterior and anterior margins. All of these specimens were labeled for orientation and sent for permanent specimen. The wound bed was again examined. It was noted to be adequately hemostatic. The deep tissues were then reapproximated with interrupted 3-0 Vicryl sutures. It was very difficult due to the habitus of the patient. Prior to reapproximating the deeper tissues, four medium Hemoclips were placed in the four quadrants of the main lumpectomy bed to delineate the lumpectomy site. Once the breast cavity had been closed in layers of interrupted 3-0 Vicryl sutures, the deep dermal layers were closed with interrupted 3-0 Vicryl sutures after taking down some attachments superficially in regions of pulling. The skin was then closed with 4-0 Monocryl in a subcuticular manner. The wound was dressed with Dermabond dressing. The patient tolerated the procedure well. Sponge, lap and needle counts were correct x2 at the end of the procedure. She was transferred to recovery in stable condition. <ELECTRONICALLY SIGNED> By: Vandana Paul MD 11/14/18 1159 1144 1226Minchris Paul MD /nt
== END 2018-11-10 13:43 | disposition home or self-care (01) ==
LOC: M.SUR 06:37 → EDSTATUS 08:00 → M.SUR 08:00 → M.RAD 08:00 → M.ORTHSURG 15:43 → M.TBA-ER 15:43 → M.ORTHSURG 16:41
PROVIDERS: Surgery; ADMIT Family Medicine
DX: C50.911 Malignant neoplasm of unspecified site of right female breast (principal); J96.11 Chronic respiratory failure with hypoxia; I89.0 Lymphedema, not elsewhere classified; D50.9 Iron deficiency anemia, unspecified; I13.0 Hypertensive heart and chronic kidney disease with heart failure and stage 1 through stage 4 chronic kidney disease, or unspecified chronic kidney disease; E11.22 Type 2 diabetes mellitus with diabetic chronic kidney disease; N18.3 Chronic kidney disease, stage 3 (moderate); I50.32 Chronic diastolic (congestive) heart failure; F43.10 Post-traumatic stress disorder, unspecified; G47.419 Narcolepsy without cataplexy; E66.01 Morbid (severe) obesity due to excess calories; I25.10 Atherosclerotic heart disease of native coronary artery without angina pectoris; I87.2 Venous insufficiency (chronic) (peripheral); Z96.653 Presence of artificial knee joint, bilateral; Z98.890 Other specified postprocedural states; Z88.6 Allergy status to analgesic agent; Z88.5 Allergy status to narcotic agent; Z88.2 Allergy status to sulfonamides; Z88.8 Allergy status to other drugs, medicaments and biological substances; Z79.899 Other long term (current) drug therapy; Z87.891 Personal history of nicotine dependence

== ENCOUNTER 2019-03-19 05:19 | Emergency (ER) | payer OTHER ==
[~2019-03-19] VITALS: Ht 154.9 cm; Wt 126.1 kg
[~2019-03-19 05:19] MED LIST changes: +IBUPROFEN 600600 M1 PO
[2019-03-19 06:00] LABS: ABSOLUTE BASOPHILS 0.1 thou/uL (0.0-0.2); ABSOLUTE EOSINOPHILS 0.3 thou/uL (0.0-0.7); ABSOLUTE LYMPHOCYTES 1.6 thou/uL (0.8-5.3); ABSOLUTE MONOCYTES 0.7 thou/uL (0.0-1.2); ABSOLUTE NEUTROPHILS 5.8 thou/uL (1.6-8.1); BASOPHILS 0.6 %; EOSINOPHILS 3.9 %; HEMATOCRIT 35.7 % (37.0-47.0); HEMOGLOBIN 11.6 gm/dL (12.0-15.0); LYMPHOCYTES 18.8 %; MCH 29.5 pg (26.0-34.0); MCHC 32.4 g/dL (28.0-37.0); MCV 90.9 fL (80.0-100.0); MONOCYTES 8.7 %; MPV 8.3 fl. (7.2-11.1); NUCLEATED RBCS 0 /100WBC; PLATELET COUNT* 314 thou/uL (150-400); RBC 3.93 mil/uL (4.20-5.00); RDW-CV 15.3 % (10.5-14.5); WBC 8.5 thou/uL (4.0-11.0)
[2019-03-19 06:04] LABS: ANION GAP 11 mmol/L (7-16); BUN 51 mg/dL (7-18); CALCIUM 9.5 mg/dL (8.5-10.1); CHLORIDE 99 mmol/L (98-107); CO2 31 mmol/L (21-32); GLUCOSE 198 mg/dL (70-99); POTASSIUM 4.2 mmol/L (3.5-5.1); SODIUM 141 mmol/L (136-145)
[2019-03-19 06:11] LABS: PROTIME 10.6 Seconds (9.20-11.50)
[2019-03-19 06:16] LABS: ALBUMIN 3.4 g/dL (3.4-5.0); ALKALINE PHOSPHATASE 90 U/L (46-116); NT-PRO BRAIN NAT PEPTIDE 538 pg/mL (<300); SGOT 23 U/L (15-37); SGPT 29 U/L (30-65); TOTAL BILIRUBIN 0.4 mg/dL (<0.1-1.0); TOTAL PROTEIN 8.1 g/dL (6.4-8.2); TROPONIN-I LEVEL <0.06 ng/mL (<0.06)
[2019-03-19 06:25] LABS: BE 2.8 mmol/L (-2 to +3); pH 7.366 (7.340-7.450)
[2019-03-19 06:27] LABS: PCO2 51.9 mmHg (35.0-45.0); PO2 49.1 mmHg (75.0-100.0)
[2019-03-19 07:44] VITALS: BP 122/45
--- NOTE | 2019-03-19 10:50 | EKG ---
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
== END 2019-03-19 07:47 | disposition still patient (30) ==
LOC: M.ERS 05:19
PROVIDERS: Personal Emergency Response Attendant
DX: R06.02 Shortness of breath (principal); E11.9 Type 2 diabetes mellitus without complications; I50.30 Unspecified diastolic (congestive) heart failure; E66.01 Morbid (severe) obesity due to excess calories; I25.10 Atherosclerotic heart disease of native coronary artery without angina pectoris; Z96.653 Presence of artificial knee joint, bilateral; Z90.49 Acquired absence of other specified parts of digestive tract; Z68.43 Body mass index [BMI] 50.0-59.9, adult; Z90.722 Acquired absence of ovaries, bilateral; Z88.6 Allergy status to analgesic agent; Z88.1 Allergy status to other antibiotic agents; Z88.2 Allergy status to sulfonamides; Z88.5 Allergy status to narcotic agent; Z88.8 Allergy status to other drugs, medicaments and biological substances; Z85.3 Personal history of malignant neoplasm of breast; Z90.11 Acquired absence of right breast and nipple

== ENCOUNTER 2019-03-20 13:09 | Inpatient (IN) | payer OTHER ==
[~2019-03-20] VITALS: Ht 152.4 cm; Wt 130.2 kg
[2019-03-20] VITALS (20 sets, daily range): BP systolic 80–144; BP diastolic 29–85
--- NOTE | ~2019-03-20 | PROC ---
[address] [address] PROCEDURE REPORT Name: AMBAR SOSA Room: [address] IN ..#: [id number] Admission: 03/20/19 Attend Phys: Pat Gan MD Discharge: Date of : 48 Report #: [id number] THIS REPORT FOR: //name// For GI report, please see the Provation report in Perceptive 7 content. By: 0703Medical Records Staff ALEJANDRO /MEGHAN
--- NOTE | ~2019-03-20 | CON ---
[facility] [address] [place] [address] CONSULTATION Name: AMBAR SOSA Room: [address] IN ..#: [id number] Admission: 03/20/19 Attend Phys: Pat Gan MD Discharge: Date of : 48 Report #: [id number] THIS REPORT FOR: //name// CC: STACI physician/PCP Pat Gan DICTATED BY: Lorrie Khalil [facility] DATE OF SERVICE: 03/21/2019 Please note at the time of this dictation, the patient was seen and physically examined by myself. REASON FOR CONSULTATION: Acute anemia, possible GI bleed. HISTORY OF PRESENT ILLNESS: This is a 69-year-old female who apparently was recently hospitalized at [facility] from 03/13 through 03/16 for increased shortness of breath. It appears that she had an exacerbation of congestive heart failure and had some underlying COPD as well and received diuresis. It was also noted that she was to go to [facility] the day that she was discharged; however, she never went there and states that she went home. In getting an accurate history from the patient, she is very confused as to the dates and times. She stated that she had gone AMA at the previous facility, which is not indicated once we have reviewed her records. The patient does state that she does have some chronic abdominal pain she states for the last 2 years in her lower abdomen. She also mentions that on 02/02 her bowel habits changed. Prior to that they were daily, soft and formed with no evidence of any bright red blood or black stools; however since that time, she states that periodically she will have black stools that she has been incontinent with, otherwise it is clear fluid that she describes when she goes to the bathroom, which is several times a day. The patient also apparently has oxygen at home but does not appear to be wearing it on a regular basis. She has never had an EGD done. She did state she had a colonoscopy done possibly 10 years ago at the [facility] and said everything was normal. Hemoglobin when she was at [facility] was 9.9. Initially, she was okay when she came in and then she had dropped to 5.7. She got a unit of blood, which brought her up to 10.5 and she is back down to 9.2 this morning. It is also noted in 07/2018, she was here at the hospital at [place] and her hemoglobin at that time was 12.9. Also noted her BUN is elevated at 61. It was 71 on admission. ALLERGIES: Include CAFFEINE, ASPIRIN, STADOL, KEFLEX, CLINDAMYCIN, CODEINE, HYDROCODONE, IBUPROFEN, DEMEROL, SULFA AND TRAMADOL. MEDICATIONS FROM HOME: Clonazepam, gabapentin, Coreg, multivitamin, omeprazole, metformin [place] [address] CONSULTATION Name: AMBAR SOSA Room: [address] IN [facility].#: [id number] Admission: 03/20/19 Attend Phys: Pat Gan MD Discharge: Date of : 48 Report #: [id number] PAST MEDICAL HISTORY: Consistent with diabetes, congestive heart failure. She has a history of bilateral lower extremity lymphedema, PTSD, chronic hypoxic respiratory failure, history of right breast cancer and coronary artery disease. PAST SURGICAL HISTORY: She has had bilateral total knee, gallbladder, appendectomy, left fallopian tube and right ovarian removed and a right lumpectomy. FAMILY HISTORY: Noncontributory. SOCIAL HISTORY: Previous tobacco use. Denies any alcohol, tobacco or illegal drug use. REVIEW OF SYSTEMS: Twelve-point review of systems is essentially negative except what is mentioned in the HPI. PHYSICAL EXAMINATION: VITAL SIGNS: Temperature 36.4, pulse 65, respirations 10, blood pressure 130/38. HEART: Regular rate and rhythm. LUNGS: Diminished. ABDOMEN: Soft, positive bowel sounds in all 4 quadrants, which the patient describes tenderness in the lower half of the abdomen to palpation. LABORATORY DATA: This morning, hemoglobin 9.2, white count 5, platelets 187. PT 10.6, INR 1, BUN is 61, creatinine 3.5. Iron was 37, TIBC 271, percentage sat was 14. It was also noted in looking at the CT of the abdomen and pelvis done over at [facility], all was negative in the GI. IMPRESSION: 1. Acute anemia. 2. Melanotic stools. 3. Diarrhea. 4. Abdominal pain. 5. Gastroesophageal reflux disease. She takes omeprazole. 6. Morbid obesity. 7. Chronic obstructive pulmonary disease. 8. Congestive heart failure. 9. Chronic kidney disease. PLAN: 1. EGD and colonoscopy tomorrow with Dr. Appiah. 2. [facility]. 3. Continue on her Protonix. 4. After reviewing records from [facility], 45 minutes [place] [address] CONSULTATION Name: AMBAR SOSA Charlene Room: [address] IN [facility].#: [id number] Admission: 03/20/19 Attend Phys: Pat Gan MD Discharge: Date of : 48 Report #: [id number] so and in connection with the patient. 5. Further recommendations to be made once the procedure has been performed tomorrow. Thank you for allowing us to participate in this patient's care. Please do not hesitate to call with any questions in regard to this consult. By: 1153 2250Moi Appiah MD /paulo
[~2019-03-20 13:09] MED LIST changes: +OMEPRAZOLE 20 M20 M1 PO; -OMEPRAZOLE20 MG PO
[2019-03-20 14:23] LABS: MCH 30.4 pg (26.0-34.0); MCHC 32.8 g/dL (28.0-37.0); MCV 92.6 fL (80.0-100.0); MPV 7.8 fl. (7.2-11.1); NUCLEATED RBCS 0 /100WBC; PLATELET COUNT* 133 thou/uL (150-400); RBC 1.87 mil/uL (4.20-5.00); RDW-CV 15.2 % (10.5-14.5); WBC 3.9 thou/uL (4.0-11.0)
[2019-03-20 14:24] LABS: HEMATOCRIT 17.3 % (37.0-47.0); HEMOGLOBIN 5.7 gm/dL (12.0-15.0)
[2019-03-20 14:26] LABS: ABSOLUTE NEUTROPHILS 2.4 thou/uL (1.6-8.1); POLYS 62.3 %
[2019-03-20 14:27] LABS: ABSOLUTE EOSINOPHILS 0.1 thou/uL (0.0-0.7); ABSOLUTE MONOCYTES 0.4 thou/uL (0.0-1.2); BASOPHILS 0.4 %; EOSINOPHILS 3.2 %; LYMPHOCYTES 24.9 %; MONOCYTES 9.2 %
[2019-03-20 14:32] LABS: APTT 32.4 Seconds (25.0-31.3); INR 1.3; PROTIME 13.6 Seconds (9.20-11.50)
[2019-03-20 14:56] LABS: ANION GAP 15 mmol/L (7-16); BUN 37 mg/dL (7-18); CHLORIDE 117 mmol/L (98-107); CO2 16 mmol/L (21-32); CREATININE 2.4 mg/dL (0.6-1.3); GLUCOSE 78 mg/dL (70-99); SODIUM 148 mmol/L (136-145)
[2019-03-20 14:59] LABS: CALCIUM < 5.0 mg/dL (8.5-10.1); POTASSIUM 2.1 mmol/L (3.5-5.1)
[2019-03-20 15:05] LABS: ALBUMIN 1.3 g/dL (3.4-5.0); ALKALINE PHOSPHATASE 37 U/L (46-116); LIPASE 50 U/L (73-393); SGOT 10 U/L (15-37); SGPT 11 U/L (30-65); TOTAL BILIRUBIN 0.2 mg/dL (<0.1-1.0); TOTAL PROTEIN 3.2 g/dL (6.4-8.2); TROPONIN-I LEVEL <0.06 ng/mL (<0.06)
--- NOTE | 2019-03-20 16:28 | NUR ---
SREE DICKERSON PLACED A BASILIC TRIPLE LUMEN PICC LINE IN THE LEFT UPPER ARM. NO COMPLICATIONS NOTED AT 1500
--- NOTE | 2019-03-20 16:40 | NUR ---
LEFT BASILIC VESSEL ACCESSED FOR TRIPLE LUMEN PICC. LINE PRE-TRIMMED TO 52 CM AND ADVANC ED TO THE ZERO BEN WITH NO RESISTANCE MET. UPPER ARM CIRCUMFERENCE ABOVE INSERTION SITE = 19 1/2". SHERLOCK MAGNET AND 3CG CONFIRMATION OF TIP TERMINATION AT THE CAVOATRIAL JUNCTION APPRECIATED. STYLET REMOVED, INSERTION SITE DRESSED AND REPORT GIVEN TO JENNIFER DICKERSON.
--- NOTE | 2019-03-20 17:17 | EKG ---
[place] [address] ELECTROCARDIOGRAM REPORT Name: AMBAR SOSA Room: [address] ADM IN [facility]#: [id number] Admission: 03/20/19 Attend Phys: Pat Gan MD Discharge: Date of : 48 Report #: [id number] THIS REPORT FOR: //name// [facility] ED Test Date: 2019-03-20 Test Time: 13:16:31 Pat Name: AMBAR LORENZS Department: Room: 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
[2019-03-20 17:55] LABS: BE -0.9 mmol/L (-2 to +3); PCO2 46.7 mmHg (35.0-45.0); PO2 105.9 mmHg (75.0-100.0); pH 7.347 (7.340-7.450)
--- NOTE | 2019-03-20 20:04 | NUR ---
PT RECEIVED FROM [facility] AT 1645, A&O X4. VSS. O2 SATS >92% WITH NC 2L/MIN. POTASSIUM AND MAG REPLACED. I UNIT OF PACKED CELL TRANSFUSION INITIATED. DELGADO'S CATHETER INSERTED. ADMISSION PROCESS COMPLETED. RL RUNNING AT 100 MLS/HR.
[2019-03-20 22:48] LABS: HEMATOCRIT 32.1 % (37.0-47.0); HEMOGLOBIN 10.5 gm/dL (12.0-15.0)
[2019-03-20 23:47] LABS: MAGNESIUM 3.7 mg/dL (1.8-2.4)
[2019-03-20 23:51] LABS: POTASSIUM 4.8 mmol/L (3.5-5.1)
[2019-03-21] VITALS (24 sets, daily range): BP systolic 106–147; BP diastolic 37–74
[2019-03-21 05:32] LABS: APTT 27.3 Seconds (25.0-31.3); PROTIME 10.6 Seconds (9.20-11.50)
[2019-03-21 06:10] LABS: ALBUMIN 2.8 g/dL (3.4-5.0); MAGNESIUM 3.5 mg/dL (1.8-2.4); PHOSPHORUS* 6.4 mg/dL (2.5-4.9); POTASSIUM 5.1 mmol/L (3.5-5.1); TOTAL BILIRUBIN 0.4 mg/dL (<0.1-1.0); TOTAL PROTEIN 6.5 g/dL (6.4-8.2)
[2019-03-21 06:14] LABS: CALCIUM 8.5 mg/dL (8.5-10.1); CREATININE 4.4 mg/dL (0.6-1.3)
[2019-03-21 08:15] LABS: CREATININE 3.5 mg/dL (0.6-1.3); POTASSIUM 5.1 mmol/L (3.5-5.1)
[2019-03-21 09:05] LABS: ABSOLUTE EOSINOPHILS 0.2 thou/uL (0.0-0.7); ABSOLUTE LYMPHOCYTES 1.4 thou/uL (0.8-5.3); ABSOLUTE MONOCYTES 0.5 thou/uL (0.0-1.2); ABSOLUTE NEUTROPHILS 2.9 thou/uL (1.6-8.1); BASOPHILS 0.5 %; HEMATOCRIT 27.8 % (37.0-47.0); HEMOGLOBIN 9.2 gm/dL (12.0-15.0); LYMPHOCYTES 27.3 %; MCH 30.7 pg (26.0-34.0); MCV 92.9 fL (80.0-100.0); MONOCYTES 9.9 %; MPV 8.1 fl. (7.2-11.1); NUCLEATED RBCS 0 /100WBC; PLATELET COUNT* 187 thou/uL (150-400); POLYS 58.3 %; RBC 2.99 mil/uL (4.20-5.00); RDW-CV 15.2 % (10.5-14.5)
[2019-03-21 10:26] LABS: URINE BILIRUBIN NEGATIVE (Negative); URINE BLOOD 2+ (Negative); URINE CLARITY CLEAR; URINE COLOR YELLOW; URINE GLUCOSE-RANDOM NEGATIVE (Negative); URINE KETONES NEGATIVE (Negative); URINE NITRITE-REFLEX NEGATIVE (Negative); URINE PROTEIN NEGATIVE (Negative); URINE UROBILINOGEN 0.2 E.U./dl (0.2-1.0)
[2019-03-21 10:27] LABS: URINE LEUKOCYTES-REFLEX 2+ (Negative)
[2019-03-21 10:35] LABS: BACTERIA-REFLEX 1-9 Few /HPF (None Seen); CASTS None Seen /LPF (None Seen); CRYSTALS None Seen /LPF (None Seen); MUCUS 0-3 Light strn/LPF (None Seen); SQUAMOUS 0-3 Few /LPF (0-3); URINE RBC 3-10 Few /HPF (0-2); URINE WBC-REFLEX 6-15 Few /HPF (0-5)
[2019-03-21 12:23] LABS: HEMATOCRIT 32.3 % (37.0-47.0); HEMOGLOBIN 10.7 gm/dL (12.0-15.0); MCH 30.3 pg (26.0-34.0); MCHC 33.3 g/dL (28.0-37.0); MPV 8.1 fl. (7.2-11.1); RBC 3.54 mil/uL (4.20-5.00); RDW-CV 15.1 % (10.5-14.5); WBC 5.3 thou/uL (4.0-11.0)
--- NOTE | 2019-03-21 16:29 | NUR ---
ICU rounds and assessment: Pt known to CM from previous admission and history on [facility] inpt rehab unit. Pt lives alone and has supportive friends. Pt has hx with [facility] services. Pt requested to complete DPOA/AD; SANDRA notified CM who has notary stamp available. Pt uses electric wc. Pt has PICC, Long, lymphedema. When pt is stable for transfer, pt [place], [place], requesting pt be able to transfer to [facility]. SANDRA discussed with pt nurse, pt doctor to determine stability for transfer tomorrow.
--- NOTE | 2019-03-21 16:36 | NUR ---
DPOA NOTARIZED, COPY TO CHART AND COPIES TO PT
--- NOTE | 2019-03-21 18:23 | NUR ---
THIS CAPACITOR ASSEMBLER ASSUMED CARE OF PATIENT AT 0700. PT PROGRESSED TOWARD GOALS BY TITRATING DOWN ON OXYGEN, BUT THEN WITH LUNCH AND DINNER STARTED COUGHING AND HAVING TROUBLE SWALLOWING. PHYSICIAN NOTIFED NEW ORDERS RECEIVED FOR CHEST X-RAY, CONSULT WITH SPEECH THERAPY FOR SWALLOW STUDY AND NEW MEDICATIONS ORDER.
--- NOTE | 2019-03-21 18:36 | NUR ---
PT'S A&O X4. VSS. O2 SATS >92% IN RA. TOLERATING SIPS. HAD A BM, LARGE AND FORMED. GETS UP TO THE [facility] MIN ASSIST, TAKES A LOT OF TIME. PLANNED EGD AND COLONOSCOPY TOMORROW. PT TO BE KEPT MNPO.
[2019-03-22 04:00] VITALS: BP 107/42
--- NOTE | 2019-03-22 05:55 | NUR ---
PT RECEIVED FROM ICU IN ROOM 210. ALERT AND ORIENTED X4. PT SEEMS ANXIOUS. CALL LIGHT WITHIN REACH AND BED IN LOW POSITION. DELGADO IN PLACE AND DRAINING URINE. HOURLY ROUNDING DONE FOR PT SAFETY.
[2019-03-22 06:01] LABS: ABSOLUTE BASOPHILS 0.1 thou/uL (0.0-0.2); ABSOLUTE EOSINOPHILS 0.2 thou/uL (0.0-0.7); ABSOLUTE LYMPHOCYTES 1.3 thou/uL (0.8-5.3); ABSOLUTE MONOCYTES 0.5 thou/uL (0.0-1.2); ABSOLUTE NEUTROPHILS 2.6 thou/uL (1.6-8.1); BASOPHILS 1.2 %; EOSINOPHILS 5.2 %; HEMATOCRIT 30.8 % (37.0-47.0); HEMOGLOBIN 10.2 gm/dL (12.0-15.0); LYMPHOCYTES 27.7 %; MCH 30.5 pg (26.0-34.0); MCHC 33.2 g/dL (28.0-37.0); MCV 91.9 fL (80.0-100.0); MONOCYTES 10.9 %; MPV 8.2 fl. (7.2-11.1); NUCLEATED RBCS 0 /100WBC; PLATELET COUNT* 211 thou/uL (150-400); RBC 3.35 mil/uL (4.20-5.00); RDW-CV 15.2 % (10.5-14.5); WBC 4.7 thou/uL (4.0-11.0)
[2019-03-22 06:11] LABS: ALBUMIN 2.6 g/dL (3.4-5.0); CALCIUM 8.4 mg/dL (8.5-10.1); MAGNESIUM 2.8 mg/dL (1.8-2.4); POTASSIUM 4.6 mmol/L (3.5-5.1); TOTAL BILIRUBIN 0.3 mg/dL (<0.1-1.0); TOTAL PROTEIN 6.6 g/dL (6.4-8.2)
[2019-03-22 06:12] LABS: CREATININE 2.5 mg/dL (0.6-1.3)
[2019-03-22 06:14] LABS: PREALBUMIN 21.5 mg/dL (18.0-35.7)
[2019-03-22 07:00] VITALS: BP 103/41
--- NOTE | 2019-03-22 09:00 | NUR ---
INITAL ASSESSMENT COMPLETED CHARTED. VSS. TRACING SR ON MONITOR. PT IS EXTREMELY ANXIOUS. EDUCATION PROVIDED ON UPCOMING PROCEDURE, PT VOICES UNDERSTANDING. HOURLY ROUNDING AND FALL PRECAUTIONS IN PLACE FOR PT SAFETY. CLWR.
[2019-03-22 10:04] VITALS: BP 103/41; BP 153/82
[2019-03-22 12:40] VITALS: BP 144/63
[2019-03-22 15:00] VITALS: BP 118/76
[2019-03-23] VITALS: BP 139/54
[2019-03-23 04:00] VITALS: BP 142/64
[2019-03-23 04:49] LABS: ABSOLUTE EOSINOPHILS 0.2 thou/uL (0.0-0.7); ABSOLUTE LYMPHOCYTES 1.5 thou/uL (0.8-5.3); ABSOLUTE MONOCYTES 0.6 thou/uL (0.0-1.2); ABSOLUTE NEUTROPHILS 3.3 thou/uL (1.6-8.1); BASOPHILS 0.6 %; EOSINOPHILS 3.6 %; HEMATOCRIT 31.9 % (37.0-47.0); HEMOGLOBIN 10.5 gm/dL (12.0-15.0); LYMPHOCYTES 26.6 %; MCH 30.2 pg (26.0-34.0); MCHC 32.9 g/dL (28.0-37.0); MONOCYTES 10.8 %; MPV 8.4 fl. (7.2-11.1); NUCLEATED RBCS 0 /100WBC; PLATELET COUNT* 224 thou/uL (150-400); POLYS 58.4 %; RBC 3.46 mil/uL (4.20-5.00); RDW-CV 15.1 % (10.5-14.5); WBC 5.6 thou/uL (4.0-11.0)
[2019-03-23 05:05] LABS: CALCIUM 8.4 mg/dL (8.5-10.1); CREATININE 1.9 mg/dL (0.6-1.3); MAGNESIUM 2.3 mg/dL (1.8-2.4); POTASSIUM 4.7 mmol/L (3.5-5.1)
--- NOTE | 2019-03-23 06:29 | NUR ---
ASSUMED CARE OF PT AT 1900. PT IS ALERT AND ORIENTED. VSS. PERRGREGG. PT IS IN SINUS RYTHM ON THE TELEMETRY. PT IS RESTING COMFORTABLY IN BED. RESPIRATIONS ARE EVEN AND NONLABORED. WILL CONTINUE TO MONITOR PT.
[2019-03-23 07:30] VITALS: BP 157/57
--- NOTE | 2019-03-23 10:00 | NUR ---
ASSUMED CARE AFTER REPORT APPROX 0730. [facility], [facility] TO STAFF. 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 O2 SAT > 92% ON RA. PATIENT WITHOUT C/O PAIN, SOA, N/V OR OTHER DISTRESS. UP WITH ASSIST TO BSC AND CHAIR. DELGADO CATHETER DRAINING CLR, YELLOW URINE, DEPENDENT DRNG. CALL LIGHT WITHIN REACH. HOURLY ROUNDING FOR SAFETY AND PATIENT NEEDS.
--- NOTE | 2019-03-23 11:08 | NUR ---
ZEKE spoke with , anticipate that Pt will be medically stable to dc within the next 24-48 hours. recommending skilled v rehab. CM asked director of cardiac rehabilitation to look at Pt to determine if Pt would be a rehab candidate. CM contacted [facility], Pt was to dc to there last week and again on Wednesday03/20/19 but never showed up, at this time, admissions, they do not have any beds available. CM waiting to hear back from director of cardiac rehabilitation regarding ability to accept. If Pt does not qualify, Pt is open to SNF, discussed Madeleine Pham. Following.
[2019-03-23 11:40] VITALS: BP 150/60
[2019-03-23 17:18] VITALS: BP 190/86
--- NOTE | 2019-03-23 18:30 | NUR ---
PATIENT UP TO CHAIR FOR LUNCH AND STAYED IN CHAIR WITH LEGS ELEVATED UNTIL 1820. PATIENT UP TO BATHROOM WITH WALKER X2. COMMODE PLACE OVER TOILET FOR ELEVATION/PATIENT COMFORT. PATIENT EXPRESSES THAT SHE FEELS MUCH BETTER TODAY. LEFT LEG PAIN WHEN AMBULATING BACK AND FORTH FROM BATHROOM AND FROM CHAIR TO BED. PATIENT DOES NOT TOLERATE LAYING FLAT FOR MORE THAN A FEW MOMENTS. PATIENT REMAINS ON ROOM AIR. IV FLUIDS INFUSING AT 50 ML/HR BASED ON COST CLERK ORDER. CALL LIGHT IN REACH. HOURLY ROUNDING COMPLETED.
[2019-03-23 19:45] VITALS: BP 175/78
[2019-03-24 00:17] VITALS: BP 151/58
[2019-03-24 04:00] VITALS: BP 140/56
--- NOTE | 2019-03-24 04:21 | NUR ---
ASSUMED CARE OF PT AT 1900. PT IS ALERT AND ORIENTED. VSS. PERRLA. NO COMPLAINTS OF PAIN. PT IS UP WITH STAND BY ASSIST. PT IS IN SINUS RYTHM ON THE TELEMETRY. PT IS RESTING COMFORTABLY IN BED. RESPIRATIONS ARE EVEN AND NONLABORED. WILL CONTINUE TO MONITOR PT.
[2019-03-24 08:00] VITALS: BP 182/76
--- NOTE | 2019-03-24 08:35 | NUR ---
Faxed initial referral to [facility], anticipate dc to home today.
[2019-03-24 10:05] LABS: CALCIUM 9.3 mg/dL (8.5-10.1); CREATININE 1.5 mg/dL (0.6-1.3); POTASSIUM 4.7 mmol/L (3.5-5.1)
[2019-03-24 12:08] VITALS: BP 154/69
--- NOTE | 2019-03-24 14:07 | PATH ---
[facility] [address] [place] [address] PATHOLOGY RPT PROCEDURE Name: CHER EAST Room: [address] IN [facility].#: [id number] Admission: 03/20/19 Date of : 48 Discharge: Report #: [id number] Path Case #: [id number] [facility] Accession Number: [id number] . 01 Material submitted: . colon - SIGMOID COLON POLYP. Modifiers: sigmoid . 01 Clinical history: . None provided . 02 Diagnosis: Sigmoid colon polyp: - Hyperplastic polyp. (KATERYNA:tarah; 03/23/2019) [facility] 03/23/2019 1609 Local . 02 Electronically signed: . Thomas Almonte MD, Pathologist NPI- [id number] . 01 Gross description: . Received in formalin labeled "Cher [place], sigmoid colon polyp," is a 0.5 x 0.4 x 0.3 cm polypoid piece of duong soft tissue. The margin is inked and the tissue is sectioned perpendicular to the margin and submitted entirely in cassette A1. (TSD; 03/22/2019) TOB/TOB 03/22/2019 2224 Local . 02 Pathologist provided ICD-10: K63.5 . 02 CPT . 802657 Specimen Comment: A courtesy copy of this report has been sent to Specimen Comment: [phone], . Specimen Comment: Report sent to / DR LOPEZ Performed at: 01 [facility] [address] [place] [address] [address], [place], [place] [id number] MD Bridger Gonzalez MD Phone: [phone] Performed at: 02 [facility] [address], [place], [place] [id number] MD Thomas Almonte MD Phone: [phone]
--- NOTE | 2019-03-24 15:53 | NUR ---
ASSUMED PT CARE AT 0730, AOX4, UP SBA, USE WALKER, O2 SAT 90'S RA. TRACING SR ON TELE. DENIES PAIN, STATE SHE FEELS BETTER TODAY. PT FOR ACCU CHECK. PT BILATERAL LOWER EXTREMITY EDEMA NOTED. PT R LIMB ALERT. VSS, AM ASSESSMENT CHARTED, MEDS GIVEN PER MAR, CALL LIGHT WITHIN REACH, WILL CONTINUE TO MONITOR.
[2019-03-24 16:00] VITALS: BP 157/72
[2019-03-25 00:18] VITALS: BP 163/65
[2019-03-25 04:00] VITALS: BP 153/56
[2019-03-25 05:14] LABS: ABSOLUTE BASOPHILS 0.1 thou/uL (0.0-0.2); ABSOLUTE EOSINOPHILS 0.3 thou/uL (0.0-0.7); ABSOLUTE LYMPHOCYTES 1.8 thou/uL (0.8-5.3); ABSOLUTE MONOCYTES 0.5 thou/uL (0.0-1.2); ABSOLUTE NEUTROPHILS 3.8 thou/uL (1.6-8.1); BASOPHILS 0.8 %; EOSINOPHILS 4.3 %; HEMATOCRIT 31.4 % (37.0-47.0); HEMOGLOBIN 10.5 gm/dL (12.0-15.0); LYMPHOCYTES 27.6 %; MCH 30.4 pg (26.0-34.0); MCHC 33.4 g/dL (28.0-37.0); MCV 91.2 fL (80.0-100.0); MONOCYTES 8.5 %; MPV 8.2 fl. (7.2-11.1); NUCLEATED RBCS 0 /100WBC; PLATELET COUNT* 215 thou/uL (150-400); POLYS 58.8 %; RBC 3.45 mil/uL (4.20-5.00); RDW-CV 15.6 % (10.5-14.5); WBC 6.4 thou/uL (4.0-11.0)
--- NOTE | 2019-03-25 05:23 | NUR ---
ASSUMED CARE OF PT AT 1900. PT IS ALERT AND ORIENTED. VSS. PERRLA. NO COMPLAINTS OF PAIN. PT IS UP AD CINTIA. PT IS IN SINUS RYTHM ON THE TELEMETRY. PT IS RESTING COMFORTABLY IN BED. RESPIRATIONS ARE EVEN AND NONLABORED. WILL CONTINUE TO MONITOR PT.
[2019-03-25 05:38] LABS: CALCIUM 9.4 mg/dL (8.5-10.1); CREATININE 1.3 mg/dL (0.6-1.3); POTASSIUM 4.5 mmol/L (3.5-5.1)
--- NOTE | 2019-03-25 07:32 | CON ---
[address] [address] CONSULTATION Name: AMBAR SOSA Room: [address] IN [facility]#: [id number] Admission: 03/20/19 Attend Phys: Pat Gan MD Discharge: Date of : 48 Report #: [id number] THIS REPORT FOR: //name// CC: STACI physician/PCP Pat Gan DATE OF SERVICE: 03/21/2019 NEPHROLOGY CONSULTATION CONSULTING PHYSICIAN: Pat Gan MD. REASON FOR NEPHROLOGY CONSULTATION: Acute kidney injury on likely chronic kidney disease stage 3. REASON FOR ADMISSION: Syncopal episode. HISTORY OF PRESENT ILLNESS: This is a 69-year-old female who has past medical history of diabetes, lymphedema, narcolepsy, chronic diastolic congestive heart failure, PTSD, right-sided breast cancer, morbid obesity and chronic hypoxic respiratory failure, who was brought in by EMS after family called and stated the patient had a syncopal episode. The patient is a poor historian. She also apparently was at [facility] just recently and left [facility] about 2 days ago. According to the patient, she had a cardiac arrest and then recovered and she was also diuresed here. HOME MEDICATIONS: Include Lasix 80 mg once a day with the patient states that she was taking a different kind of a water pill, which she took for 2 days before coming to the hospital. Again, she is a poor historian. She does not use NSAIDs. No history of kidney stones. Baseline creatinine is 1.2-1.4. Creatinine was 2.4 yesterday with a hemoglobin of 5.7. She was given 1 unit of blood, there was no overt bleeding. Her hemoglobin is 10.5 today and creatinine was 4.4 early this morning and hence Nephrology was consulted. The Long catheter had been placed and she has had about 750 mL of urine output overnight. She also reports that she has not had a bowel movement in 1 month. She reported no history of any kidney stones. Her blood pressure was low 80/68 yesterday and she was hydrated. She does not use any THADDEUS inhibitor or ARB. REVIEW OF SYSTEMS: This is as mentioned in the history of present illness. She is just very weak. She has chronic lymphedema, shortness of breath, not worse from before and weakness. Otherwise, 10-point review of systems are negative. Also, constipation for 1 month. ALLERGIES: SULFA, ASPIRIN, CAFFEINE, BUTORPHANOL, CEPHALEXIN, CLINDAMYCIN, [place] [address] CONSULTATION Name: AMBAR SOSA Room: [address]#: [id number] Admission: 03/20/19 Attend Phys: Pat Gan MD Discharge: Date of : 48 Report #: [id number] CODEINE, HYDROCODONE, IBUPROFEN, MEPERIDINE, AND TRAMADOL. HOME MEDICATIONS: Include Lasix 80 mg once a day. I am not sure if she was taking this or different diuretic, clonazepam, gabapentin, carvedilol, multivitamin, omeprazole, metformin, lovastatin. PAST MEDICAL AND SURGICAL HISTORY: Includes chronic diastolic congestive heart failure, ejection fraction more than 70% in 12/2017 with diastolic dysfunction, diabetes type 2. The patient does not report retinopathy, lymphedema, stasis dermatitis, bilateral lower extremities, hypertension, chronic kidney disease stage 3, baseline creatinine 1.2-1.4, likely due to diabetes and hypertension, epilepsy, PTSD, morbid obesity, right-sided breast cancer, chronic hypoxic respiratory failure. Past surgical history also includes bilateral TKA, right-sided breast cancer, coronary artery disease, left lower extremity deep dialysis and gallbladder, appendectomy, left fallopian tube and right ovarian tube removal and right lumpectomy. FAMILY HISTORY: No history of any kidney disease in the family. SOCIAL HISTORY: She lives at home by herself. She does not smoke or take alcohol or use illicit drugs. PHYSICAL EXAMINATION: VITAL SIGNS: Blood pressure now is 130/38. She is on 2 liters of oxygen by nasal cannula, respiratory rate was 16, pulse rate was 65. She was afebrile. GENERAL: She was awake and alert and oriented x 3. HEAD, EYES, EARS, NOSE, AND THROAT: Normal conjunctivae. Atraumatic, normocephalic. Mucous membranes are dry. NECK: There is no JVD. CHEST: Bilaterally clear to auscultation anteriorly, diminished breath sounds and some mild wheezing heard. CARDIOVASCULAR: S1, S2 normal. I do not hear any murmurs or rubs. ABDOMEN: Obese, otherwise it is soft, no masses, no distention, no tenderness. EXTREMITIES: There were tender, bilateral nonpitting lymphedema, chronic in nature with some blistering right lower extremity. NEUROLOGICAL FUNCTION: She has some generalized weakness. Otherwise, gross neurological function seems to be normal. PSYCHIATRIC: Her affect seems to be normal. Her mood seems to be normal. LABORATORY DATA: Her sodium is 140, potassium is 5.1, creatinine was 4.4, BUN was 71, hemoglobin was 10.5 up from 5.7 yesterday, but her most recent labs just now at 7:58 a.m. shows sodium 139, potassium 5.1, BUN 61, creatinine of 3.5. Creatinine was 2.4 on admission. Other labs reviewed. [facility] [address] [place] [address] CONSULTATION Name: AMBAR SOSA Room: [address] IN [facility]#: [id number] Admission: 03/20/19 Attend Phys: Pat Gan MD Discharge: Date of : 48 Report #: [id number] IMAGING: Chest x-ray, abdominal pelvic CT scan, perfusion scan, head CT were reviewed. ASSESSMENT: 1. Acute kidney injury on chronic kidney disease stage 3. This is likely in the setting of volume depletion and diuretic use and hypotension. Her baseline creatinine is 1.2-1.4 and creatinine was 2.4 on admission. Urinalysis has not been checked yet. Abdominal CT scan yesterday did not reveal any abnormality in the kidneys. 2. Hypermagnesemia. 3. Hyperphosphatemia. 4. Iron deficiency anemia, acute on chronic, hemoglobin 5.7 on admission, deferred to primary team for evaluation of this. 5. The patient reports a recent history of cardiac arrest, outpatient records from [facility] will be needed. 6. Chronic respiratory failure could be associated with obesity hypoventilation. 7. Diabetes type 2, deferred to primary for management of that. 8. Lymphedema, stasis dermatitis, bilateral lower extremities. 9. History of hypertension, but blood pressure was low when she came in yesterday. She is currently not in shock and her blood pressures have recovered. 10. Dehydration. PLAN: 1. Creatinine so far is improving with IV fluids, is down to 3.5. I would like to change her IV fluids from LR to normal saline at 75 mL an hour. She still looks dry. 2. Try to keep a mean arterial pressure under 70 and avoid nephrotoxic agents. 3. Strict I's and O's should be maintained. 4. Check a UA. 5. Avoid magnesium containing compounds. We will follow magnesium, phosphorus tomorrow as well. Thank you for this consultation. There is no acute need for any dialysis. Discussed with the patient and the patient's nurse and we will continue to follow with you. <ELECTRONICALLY SIGNED> By: Desi Regan MD 03/25/19 0732 0850 [id number] Regan MD /nt
[2019-03-25 08:00] VITALS: BP 148/63
[2019-03-25 12:28] VITALS: BP 176/83
--- NOTE | 2019-03-25 19:41 | NUR ---
ASSUSSMED CARE OF PT APPROX 0730. REASSESSMENT COMPLETED CHARTED. MEDICATIONS GIVEN CHARTED. HOURLY ROUNDED FOR PT SAFTEY. PT TO BEDSIDE CAMODE MULTIPLE TIMES THIS SHIFT WITH STAND BY ASSIST. ASSISSTED PT WITH SPONGE BATH THIS AFTERNOON. ROUNDED FOR PT SAFTEY. FALL PRECAUTIONS IN PLACE. CALL LIGHT AND PERSONAL ITEMS WITHIN REACH.
[2019-03-25 20:00] VITALS: BP 156/72
[2019-03-26] VITALS: BP 157/74
--- NOTE | 2019-03-26 01:53 | NUR ---
PT ALERT ORIENTED. UP TO BSC WITH STD BY ASSIST. ON RA. M/S STATUS. L PICC TL FLUSHED. LEG WRAPS FOR LYMPHEDEMA.
[2019-03-26 08:00] VITALS: BP 101/62
[2019-03-26 16:00] VITALS: BP 176/75
[2019-03-26 20:00] VITALS: BP 157/83
--- NOTE | 2019-03-27 03:58 | NUR ---
PT ALERT ORIENTED. UP TO BSC WITH STD BY ASSIST. MED SURG STATUS. DAVE LOWER LYMPHEDEMA. PT REMOVED L LOWER LEG WRAP. ON RA.
[2019-03-27 04:00] VITALS: BP 144/60
[2019-03-27 04:02] VITALS: BP 160/54
[2019-03-27 05:33] LABS: ABSOLUTE BASOPHILS 0.1 thou/uL (0.0-0.2); ABSOLUTE EOSINOPHILS 0.3 thou/uL (0.0-0.7); ABSOLUTE LYMPHOCYTES 2.4 thou/uL (0.8-5.3); ABSOLUTE MONOCYTES 0.7 thou/uL (0.0-1.2); ABSOLUTE NEUTROPHILS 5.2 thou/uL (1.6-8.1); BASOPHILS 0.8 %; EOSINOPHILS 3.1 %; HEMATOCRIT 36.4 % (37.0-47.0); LYMPHOCYTES 27.4 %; MCH 30.3 pg (26.0-34.0); MCV 91.8 fL (80.0-100.0); MONOCYTES 8.1 %; MPV 8.9 fl. (7.2-11.1); NUCLEATED RBCS 0 /100WBC; PLATELET COUNT* 278 thou/uL (150-400); POLYS 60.6 %; RBC 3.96 mil/uL (4.20-5.00); RDW-CV 15.6 % (10.5-14.5); WBC 8.6 thou/uL (4.0-11.0)
[2019-03-27 05:47] LABS: CALCIUM 9.6 mg/dL (8.5-10.1); CREATININE 1.6 mg/dL (0.6-1.3); POTASSIUM 4.1 mmol/L (3.5-5.1)
[2019-03-27 08:00] VITALS: BP 129/66
--- NOTE | 2019-03-27 09:54 | NUR ---
Spoke with Pt, plan to dc to home with [facility], Pt does not want to go to [facility].
[2019-03-27] MEDS ORDERED: LASIX 40 MG TAB40 M1 PO (13:24)
[2019-03-27] MEDS ORDERED: PRINIVIL5 MG PO (13:24)
[2019-03-27] MEDS ORDERED: CHLORTHALIDONE25 MG PO (13:25)
[2019-03-27 14:00] VITALS: BP 129/66
[2019-03-27 15:54] VITALS: BP 129/66
--- NOTE | 2019-03-27 15:54 | NUR ---
Pt discharging to home today, faxed orders to [facility]. Transporation arranged through [facility] for [phone]/u
--- NOTE | 2019-03-27 17:19 | NUR ---
ASSUMED PT CARE AT 0730, FULL ASSESMENT DONE CHARTED. PT A/O X4, ANXIOUS ABOUT PLAN FOR DISCHARGE. PT DENIES PAIN. C/O LEFT LEG HURTING DURING THE NIGHT, SHE REPORTS TAKING HER LAYERED WRAP OFF. 3 LAYER WRAP REPLACED BILAT. PT TOLERATED WELL. VSS, BS WELL CONTROLLED TODAY, PT DID NOT EAT MUCH BREAKFAST THOUGH. PT UP WITH ASSIST. FALL PRECAUTIONS IN PLACE. DISCHARGE ORDERS RECEIVED. PT EDUCATED ON DISCHARGE PLANS AND NEW SCRIPTS. PT WAS PROVIDED WITH TRANSPORTATION. [facility] LEFT WITH PT AT APPROX 1720
== END 2019-03-27 17:30 | disposition home health service (06) | DRG 871 ==
LOC: M.ERS 13:09 → M.2W 15:20 → M.ICU 15:20 → M.TBA-ER 15:20 → M.ICU 16:12 → M.2W 03-21 23:35
PROVIDERS: Emergency Medicine Emergency Medical Services; Internal Medicine; Nurse Practitioner Adult Health; ADMIT Family Medicine
PROC: 02HV33Z Insertion of Infusion Device into Superior Vena Cava, Percutaneous Approach (ICD-10-PCS; principal; 2019-03-20)
PROC: B548ZZA Ultrasonography of Superior Vena Cava, Guidance (ICD-10-PCS; principal; 2019-03-20)
PROC: 30233N1 Transfusion of Nonautologous Red Blood Cells into Peripheral Vein, Percutaneous Approach (ICD-10-PCS; principal; 2019-03-20)
PROC: 0DJ08ZZ Inspection of Upper Intestinal Tract, Via Natural or Artificial Opening Endoscopic (ICD-10-PCS; 2019-03-22)
PROC: 0DBN8ZX Excision of Sigmoid Colon, Via Natural or Artificial Opening Endoscopic, Diagnostic (ICD-10-PCS; 2019-03-22)
DX: A41.9 Sepsis, unspecified organism (principal); R57.1 Hypovolemic shock; K92.2 Gastrointestinal hemorrhage, unspecified; J96.11 Chronic respiratory failure with hypoxia; G81.94 Hemiplegia, unspecified affecting left nondominant side; I50.32 Chronic diastolic (congestive) heart failure; I13.0 Hypertensive heart and chronic kidney disease with heart failure and stage 1 through stage 4 chronic kidney disease, or unspecified chronic kidney disease; N17.9 Acute kidney failure, unspecified; D61.818 Other pancytopenia; N39.0 Urinary tract infection, site not specified; D62 Acute posthemorrhagic anemia; Z68.43 Body mass index [BMI] 50.0-59.9, adult; I25.10 Atherosclerotic heart disease of native coronary artery without angina pectoris; E66.01 Morbid (severe) obesity due to excess calories; F43.10 Post-traumatic stress disorder, unspecified; Z96.653 Presence of artificial knee joint, bilateral; E87.6 Hypokalemia; E11.22 Type 2 diabetes mellitus with diabetic chronic kidney disease; N18.3 Chronic kidney disease, stage 3 (moderate); E83.41 Hypermagnesemia; C50.911 Malignant neoplasm of unspecified site of right female breast; E83.39 Other disorders of phosphorus metabolism; I87.2 Venous insufficiency (chronic) (peripheral); K21.9 Gastro-esophageal reflux disease without esophagitis; G47.419 Narcolepsy without cataplexy; E11.40 Type 2 diabetes mellitus with diabetic neuropathy, unspecified; J44.9 Chronic obstructive pulmonary disease, unspecified; R31.29 Other microscopic hematuria; K64.4 Residual hemorrhoidal skin tags; D05.11 Intraductal carcinoma in situ of right breast; D12.5 Benign neoplasm of sigmoid colon; Z90.49 Acquired absence of other specified parts of digestive tract; Z79.899 Other long term (current) drug therapy; Z79.82 Long term (current) use of aspirin; Z88.6 Allergy status to analgesic agent; Z88.2 Allergy status to sulfonamides; Z88.1 Allergy status to other antibiotic agents; Z79.84 Long term (current) use of oral hypoglycemic drugs; Z86.74 Personal history of sudden cardiac arrest; Z82.49 Family history of ischemic heart disease and other diseases of the circulatory system; Z83.3 Family history of diabetes mellitus; Z87.891 Personal history of nicotine dependence

== ENCOUNTER 2019-04-07 21:56 | Emergency (ER) | payer OTHER ==
[~2019-04-07] VITALS: Ht 154.9 cm; Wt 117.9 kg
[~2019-04-07 21:56] MED LIST changes: +CHLORTHALIDONE25 MG PO; +PRINIVIL5 MG PO
[2019-04-07 22:18] LABS: ABSOLUTE BASOPHILS 0.1 thou/uL (0.0-0.2); ABSOLUTE EOSINOPHILS 0.4 thou/uL (0.0-0.7); ABSOLUTE LYMPHOCYTES 1.5 thou/uL (0.8-5.3); ABSOLUTE MONOCYTES 0.6 thou/uL (0.0-1.2); BASOPHILS 0.7 %; EOSINOPHILS 5.5 %; HEMATOCRIT 34.7 % (37.0-47.0); HEMOGLOBIN 11.3 gm/dL (12.0-15.0); MCH 30.1 pg (26.0-34.0); MCHC 32.5 g/dL (28.0-37.0); MCV 92.6 fL (80.0-100.0); MONOCYTES 7.8 %; MPV 8.2 fl. (7.2-11.1); NUCLEATED RBCS 0 /100WBC; PLATELET COUNT* 227 thou/uL (150-400); RBC 3.75 mil/uL (4.20-5.00); RDW-CV 15.6 % (10.5-14.5); WBC 7.6 thou/uL (4.0-11.0)
[2019-04-07 22:24] LABS: ANION GAP 11 mmol/L (7-16); BUN 76 mg/dL (7-18); CALCIUM 8.6 mg/dL (8.5-10.1); CHLORIDE 107 mmol/L (98-107); CO2 25 mmol/L (21-32); CREATININE 1.8 mg/dL (0.6-1.3); GLUCOSE 186 mg/dL (70-99); POTASSIUM 4.9 mmol/L (3.5-5.1); SODIUM 143 mmol/L (136-145)
[2019-04-07 22:33] LABS: APTT 27.5 Seconds (25.0-31.3)
[2019-04-07 22:38] LABS: ALBUMIN 3.3 g/dL (3.4-5.0); ALKALINE PHOSPHATASE 83 U/L (46-116); CK-MB MASS 0.7 ng/mL (<0.5-3.6); LIPASE 178 U/L (73-393); MAGNESIUM 2.2 mg/dL (1.8-2.4); NT-PRO BRAIN NAT PEPTIDE 342 pg/mL (<300); SGOT 14 U/L (15-37); SGPT 27 U/L (30-65); TOTAL BILIRUBIN 0.2 mg/dL (<0.1-1.0); TOTAL PROTEIN 7.8 g/dL (6.4-8.2); TROPONIN-I LEVEL <0.06 ng/mL (<0.06)
[2019-04-07 23:21] VITALS: BP 149/44
--- NOTE | 2019-04-09 16:53 | EKG ---
[place] [address] ELECTROCARDIOGRAM REPORT Name: AMBAR SOSA Room: [facility]#: [id number] Admission: 04/07/19 Attend Phys: Discharge: 04/07/19 Date of : 48 Report #: [id number] THIS REPORT FOR: //name// [facility] ED Test Date: 2019-04-07 Test Time: 22:01:26 Pat Name: AMBAR SHEILA Department: Room: Gender: F Threshing Department Supervisor: VJIAY : 1950 Requested By: Giovanni Spencer Order Number: [id number] MD: Yair Valdes Measurements Intervals [place] Rate: 62 P: -5 WI: 185 QRS: 36 QRSD: 104 T: 33 QT: 432 QTc: 439 Interpretive Statements Sinus rhythm Compared to ECG 03/20/2019 13:16:31 No significant changes Electronically Signed On 04-09-2019 16:52:49 CDT by Yair Valdes [email or web address] <ELECTRONICALLY SIGNED> By: Yair Valdes MD, FACC 04/09/19 1652 00 00 Yair Valdes MD, FACC /EPI
== END 2019-04-07 23:23 | disposition home or self-care (01) ==
LOC: M.ERS 21:56
PROVIDERS: Family Medicine
DX: R07.89 Other chest pain (principal); I13.0 Hypertensive heart and chronic kidney disease with heart failure and stage 1 through stage 4 chronic kidney disease, or unspecified chronic kidney disease; E11.22 Type 2 diabetes mellitus with diabetic chronic kidney disease; N18.3 Chronic kidney disease, stage 3 (moderate); I50.30 Unspecified diastolic (congestive) heart failure; J96.11 Chronic respiratory failure with hypoxia; E66.01 Morbid (severe) obesity due to excess calories; Z68.42 Body mass index [BMI] 45.0-49.9, adult; Z85.3 Personal history of malignant neoplasm of breast; Z98.890 Other specified postprocedural states; Z90.49 Acquired absence of other specified parts of digestive tract; Z88.6 Allergy status to analgesic agent; Z88.5 Allergy status to narcotic agent; Z88.2 Allergy status to sulfonamides; Z88.1 Allergy status to other antibiotic agents; Z88.8 Allergy status to other drugs, medicaments and biological substances; Z90.721 Acquired absence of ovaries, unilateral

== ENCOUNTER 2019-09-18 18:32 | Emergency (ER) | payer OTHER ==
[~2019-09-18] VITALS: Ht 154.9 cm; Wt 117.9 kg
[2019-09-18] MEDS ORDERED: CARVEDILOL25 MG PO (18:39)
[2019-09-18 19:15] LABS: ABSOLUTE BASOPHILS 0.1 thou/uL (0.0-0.2); ABSOLUTE EOSINOPHILS 0.3 thou/uL (0.0-0.7); ABSOLUTE LYMPHOCYTES 1.4 thou/uL (0.8-5.3); ABSOLUTE MONOCYTES 0.5 thou/uL (0.0-1.2); ABSOLUTE NEUTROPHILS 4.7 thou/uL (1.6-8.1); BASOPHILS 0.9 %; EOSINOPHILS 3.9 %; HEMATOCRIT 37.8 % (37.0-47.0); HEMOGLOBIN 12.4 gm/dL (12.0-15.0); LYMPHOCYTES 20.4 %; MCH 30.3 pg (26.0-34.0); MCHC 32.9 g/dL (28.0-37.0); MCV 92.1 fL (80.0-100.0); MONOCYTES 7.1 %; MPV 8.5 fl. (7.2-11.1); NUCLEATED RBCS 0 /100WBC; PLATELET COUNT* 218 thou/uL (150-400); POLYS 67.7 %
[2019-09-18 19:23] LABS: CALCIUM 8.6 mg/dL (8.5-10.1); CREATININE 1.3 mg/dL (0.6-1.3); POTASSIUM 4.7 mmol/L (3.5-5.1)
[2019-09-18 19:34] LABS: ALBUMIN 3.2 g/dL (3.4-5.0); TOTAL BILIRUBIN 0.4 mg/dL (<0.1-1.0); TOTAL PROTEIN 7.5 g/dL (6.4-8.2)
[2019-09-18 21:42] LABS: INFLUENZA A ANTIGEN Negative (Negative); INFLUENZA B ANTIGEN Negative (Negative)
[2019-09-19 01:46] VITALS: BP 132/60
--- NOTE | 2019-09-19 12:45 | EKG ---
[place] [address] ELECTROCARDIOGRAM REPORT Name: AMBAR SOSA Room: [facility]#: [id number] Admission: 09/18/19 Attend Phys: Discharge: 09/19/19 Date of : 48 Date of Service: 09/18/191950 Report #: [id number] THIS REPORT FOR: //name// [facility] ED Test Date: 2019-09-18 Test Time: 19:51:55 Pat Name: AMBAR SOSA Department: Room: Gender: Senior Energy Consultant: : 1950 Requested By: Ysabel Franks Order Number: [id number] MD: Quinn Solorio Measurements Intervals [place] Rate: 66 P: -7 DE: 182 QRS: 34 QRSD: 101 T: 56 QT: 425 QTc: 446 Interpretive Statements Sinus rhythm Compared to ECG 04/07/2019 22:01:26 No significant changes Electronically Signed On 09-19-2019 12:43:48 CDT by Quinn Solorio [email or web address] <ELECTRONICALLY SIGNED> By: Quinn Solorio MD, [facility] 09/19/19 1243 50 50 Quinn Solorio MD, [facility] /EPI
== END 2019-09-19 01:46 | disposition home or self-care (01) ==
LOC: M.ERS 18:32
PROVIDERS: Physician Assistant
DX: R11.2 Nausea with vomiting, unspecified (principal); R05 Cough; I13.0 Hypertensive heart and chronic kidney disease with heart failure and stage 1 through stage 4 chronic kidney disease, or unspecified chronic kidney disease; E11.22 Type 2 diabetes mellitus with diabetic chronic kidney disease; N18.3 Chronic kidney disease, stage 3 (moderate); I50.32 Chronic diastolic (congestive) heart failure; I25.10 Atherosclerotic heart disease of native coronary artery without angina pectoris; J96.11 Chronic respiratory failure with hypoxia; E66.01 Morbid (severe) obesity due to excess calories; Z68.42 Body mass index [BMI] 45.0-49.9, adult; Z91.041 Radiographic dye allergy status; Z88.2 Allergy status to sulfonamides; Z88.5 Allergy status to narcotic agent; Z88.1 Allergy status to other antibiotic agents; Z88.8 Allergy status to other drugs, medicaments and biological substances; Z85.3 Personal history of malignant neoplasm of breast

== ENCOUNTER 2020-02-21 21:51 | Emergency (ER) | payer OTHER ==
[~2020-02-21] VITALS: Ht 157.5 cm; Wt 135.2 kg
[~2020-02-21 21:51] MED LIST changes: +CARVEDILOL25 MG PO
[2020-02-21] MEDS ORDERED: ZYRTEC 10 MG TA10 MG PO (22:18)
[2020-02-21 22:53] LABS: ABSOLUTE EOSINOPHILS 0.4 thou/uL (0.0-0.7); ABSOLUTE LYMPHOCYTES 1.1 thou/uL (0.8-5.3); ABSOLUTE MONOCYTES 0.5 thou/uL (0.0-1.2); ABSOLUTE NEUTROPHILS 3.8 thou/uL (1.6-8.1); BASOPHILS 0.6 %; HEMATOCRIT 35.7 % (37.0-47.0); MCH 31.3 pg (26.0-34.0); MCHC 33.6 g/dL (28.0-37.0); MONOCYTES 8.4 %; NUCLEATED RBCS 0 /100WBC; PLATELET COUNT* 197 thou/uL (150-400); RBC 3.84 mil/uL (4.20-5.00); RDW-CV 14.2 % (10.5-14.5); WBC 5.8 thou/uL (4.0-11.0)
[2020-02-21 22:58] LABS: CALCIUM 8.4 mg/dL (8.5-10.1); CREATININE 1.3 mg/dL (0.6-1.3); POTASSIUM 3.8 mmol/L (3.5-5.1)
[2020-02-21 23:03] LABS: TOTAL BILIRUBIN 0.5 mg/dL (<0.1-1.0); TOTAL PROTEIN 7.1 g/dL (6.4-8.2)
[2020-02-21] MEDS ORDERED: DOXYCYCLINE 10100 MG PO (23:39)
[2020-02-22 00:38] VITALS: BP 144/56
== END 2020-02-22 00:42 | disposition home or self-care (01) ==
LOC: M.ERS 21:51
PROVIDERS: Emergency Medicine
DX: S30.861A Insect bite (nonvenomous) of abdominal wall, initial encounter (principal); S40.262A Insect bite (nonvenomous) of left shoulder, initial encounter; I13.0 Hypertensive heart and chronic kidney disease with heart failure and stage 1 through stage 4 chronic kidney disease, or unspecified chronic kidney disease; I50.9 Heart failure, unspecified; I25.10 Atherosclerotic heart disease of native coronary artery without angina pectoris; E11.22 Type 2 diabetes mellitus with diabetic chronic kidney disease; E66.01 Morbid (severe) obesity due to excess calories; N18.3 Chronic kidney disease, stage 3 (moderate); Z68.43 Body mass index [BMI] 50.0-59.9, adult; Z85.3 Personal history of malignant neoplasm of breast; Z90.49 Acquired absence of other specified parts of digestive tract; Z90.721 Acquired absence of ovaries, unilateral; Z96.653 Presence of artificial knee joint, bilateral; Z91.041 Radiographic dye allergy status; Z88.1 Allergy status to other antibiotic agents; Z88.2 Allergy status to sulfonamides; Z88.6 Allergy status to analgesic agent; Z88.8 Allergy status to other drugs, medicaments and biological substances; W57.XXXA Bitten or stung by nonvenomous insect and other nonvenomous arthropods, initial encounter; Y93.89 Activity, other specified; Y92.89 Other specified places as the place of occurrence of the external cause; Y99.8 Other external cause status

== ENCOUNTER 2020-09-22 15:33 | Inpatient (IN) | payer OTHER ==
[~2020-09-22] VITALS: Ht 154.9 cm; Wt 140.2 kg
[~2020-09-22 15:33] MED LIST changes: +DOXYCYCLINE 10100 MG PO; +ZYRTEC 10 MG TA10 MG PO
[2020-09-22 15:40] VITALS: BP 146/65
[2020-09-22 16:13] LABS: ABSOLUTE EOSINOPHILS 0.2 thou/uL (0.0-0.7); ABSOLUTE LYMPHOCYTES 1.8 thou/uL (0.8-5.3); ABSOLUTE MONOCYTES 0.6 thou/uL (0.0-1.2); ABSOLUTE NEUTROPHILS 4.4 thou/uL (1.6-8.1); BASOPHILS 0.5 %; EOSINOPHILS 3.5 %; HEMATOCRIT 34.8 % (37.0-47.0); HEMOGLOBIN 11.3 gm/dL (12.0-15.0); LYMPHOCYTES 25.4 %; MCH 30.6 pg (26.0-34.0); MCHC 32.6 g/dL (28.0-37.0); MCV 93.9 fL (80.0-100.0); MONOCYTES 8.4 %; MPV 7.7 fl. (7.2-11.1); NUCLEATED RBCS 0 /100WBC; PLATELET COUNT* 206 thou/uL (150-400); POLYS 62.2 %; RDW-CV 14.1 % (10.5-14.5)
[2020-09-22 16:22] LABS: ALBUMIN 3.1 g/dL (3.4-5.0); CALCIUM 9.4 mg/dL (8.5-10.1); CREATININE 1.4 mg/dL (0.6-1.3); POTASSIUM 4.5 mmol/L (3.5-5.1); TOTAL BILIRUBIN 0.5 mg/dL (<0.1-1.0); TOTAL PROTEIN 7.2 g/dL (6.4-8.2)
[2020-09-22 16:41] LABS: URINE BILIRUBIN NEGATIVE (Negative); URINE BLOOD NEGATIVE (Negative); URINE CLARITY CLEAR; URINE COLOR YELLOW; URINE GLUCOSE-RANDOM NEGATIVE (Negative); URINE KETONES NEGATIVE (Negative); URINE LEUKOCYTES-REFLEX TRACE (Negative); URINE NITRITE-REFLEX NEGATIVE (Negative); URINE PROTEIN NEGATIVE (Negative); URINE SPECIFIC GRAVITY 1.025 (1.005-1.030); URINE UROBILINOGEN 0.2 E.U./dl (0.2-1.0)
[2020-09-22 16:51] LABS: BACTERIA-REFLEX >30 Many /HPF (None Seen); CASTS None Seen /LPF (None Seen); CRYSTALS None Seen /LPF (None Seen); MUCUS None Seen strn/LPF (None Seen); SQUAMOUS >10 Many /LPF (0-3); URINE RBC None Seen /HPF (0-2); URINE WBC-REFLEX 6-15 Few /HPF (0-5)
[2020-09-22 19:50] VITALS: BP 112/56
[2020-09-22 21:30] VITALS: BP 117/46
[2020-09-23 04:47] LABS: HEMATOCRIT 34.1 % (37.0-47.0); HEMOGLOBIN 10.9 gm/dL (12.0-15.0); MCH 30.6 pg (26.0-34.0); MCHC 32.1 g/dL (28.0-37.0); MCV 95.4 fL (80.0-100.0); MPV 7.6 fl. (7.2-11.1); RBC 3.58 mil/uL (4.20-5.00); RDW-CV 14.1 % (10.5-14.5); WBC 4.9 thou/uL (4.0-11.0)
[2020-09-23 04:50] LABS: CALCIUM 8.6 mg/dL (8.5-10.1); CREATININE 1.3 mg/dL (0.6-1.3); MAGNESIUM 1.7 mg/dL (1.8-2.4); POTASSIUM 4.7 mmol/L (3.5-5.1)
--- NOTE | 2020-09-23 06:26 | NUR ---
PATIENT ARRIVED ON FLOOR FROM ER AT ABOUT 2014. PATIENT ADMISSION HISTORY AND ASSESSMENT WAS COMPLETED CHARTED. IV FLUIDS WERE STARTED AT 100 ML/HR. PATIENT IS ON OXYGEN AT 2L. PICTURES WERE TAKEN AND PLACED ON CHART OF BILATERAL LEGS FOR CELLULITIS AND LYMPHEDEMA. PATIENT IS UP WITH WALKER AND GAITBELT TO BEDSIDE COMMODE. PAIN MEDICINE WAS GIVEN OMCE THIS MORNING. WILL CONTINUE TO MONITOR.
--- NOTE | 2020-09-23 09:37 | NUR ---
WOUND NURSE: PATIENT SEEN TO ADDRESS LYMPHEDEMA ON BLE BUT DOES NOT HAVE OPEN OR DRAINING LESIONS AT THIS TIME. HAS SIGNIFICANT EDEMA AND HYPERKERATOSIS OF BLE. RECOMMEND AND INITIATED LYMPHEDEMA THERAPY CONSULT. SHE WILL BE HERE TOMORROW.
--- NOTE | 2020-09-23 12:45 | NUR ---
SPOKE WITH PT. SHE WAS ALERT AND ORIENTED. SHE LIVES ALONE IN A HOUSE. NO STAIRS. SHE RENTS THE HOUSE. SHE AHS A GOOD FRIEND AND HIS -ESTEE AND DARREN SIFUENTES. THEY ARE IN THEIR 80S BUT TAKE HER TO THE DR.S, [place], ETC. THEIR GRANDAUGHTER,DINO SIFUENTES IS PTS DPOA FOR HEALTH CARE AND CLENAS HER HOUSE EVERY COUPLE OF WEEKS. PT.PAYS HER FOR CLEANING. PT.IS ABLE TO DO HER OWN LALUNDRY,COOK, DO HER DISHES. SHE DRIVES TO [employer] TO GET HER GROCERIES. SHE DOESN'T DRIVE ANYWHERE ELSE. SHE MAINLY SAID SHE USES HER WC IN HER OUME. SHE CAN STAND TO COOK AT STOVE OR DO DISHES. SHE ALWAYS MAKES SURE HER WALKER IS LOCKED. SHE HAS CHRONIC LYMPEDEMA. HX OF [facility] BUT THEY WON'T COME ANYMORE BECAUSE SHE GOES TO [place] AND TO GET GROCERIES. PT.MEETS HOME BOUND STATUS. WILL CALL [facility] IN AM TO DISCUSS. PT.DOES NOT HAVE A PCP,HOWEVER. THIS COULD BE BARRIER TO NOT BEING ABLE TO RECEIVE HH. SHE SAID SHE DOESN'T FOLLOW A [facility] DR.REGULARLY.
[2020-09-23 16:09] VITALS: BP 168/69
--- NOTE | 2020-09-23 19:46 | NUR ---
Pt remains A&O x4 for entire shift. Vital signs stable. Pt pleasant with staff and extremely chatty. Pt complains of some pain in LLE. Pt refusing gabapentin stating that she doesn't take it when she is not up and moving. Pt up with assistance to bedside commode. Bed in low position, bed alarm on, call light within reach.
[2020-09-23 19:54] VITALS: BP 143/52
[2020-09-24 05:03] LABS: CALCIUM 8.4 mg/dL (8.5-10.1); CREATININE 1.2 mg/dL (0.6-1.3); POTASSIUM 4.5 mmol/L (3.5-5.1)
[2020-09-24 05:06] LABS: HEMATOCRIT 31.7 % (37.0-47.0); HEMOGLOBIN 10.3 gm/dL (12.0-15.0); MCH 30.8 pg (26.0-34.0); MCHC 32.6 g/dL (28.0-37.0); MCV 94.5 fL (80.0-100.0); MPV 7.6 fl. (7.2-11.1); RBC 3.36 mil/uL (4.20-5.00); RDW-CV 13.8 % (10.5-14.5); WBC 6.4 thou/uL (4.0-11.0)
[2020-09-24 08:19] VITALS: BP 152/56
[2020-09-24] MEDS ORDERED: DOXYCYCLINE 10100 MG PO (09:58)
[2020-09-24] MEDS ORDERED: LEVOFLOXACIN500 MG PO (13:09)
[2020-09-24 16:38] VITALS: BP 152/56
[2020-09-24 16:53] VITALS: BP 185/84
--- NOTE | 2020-09-24 16:58 | NUR ---
PT.TO DISCHARGE HOME TODAY WITH HOME HEALTH. PT.TOLD CM SHE CALLED HER [facility] DRJonahIN [place]-DR.NICOLE JARRELL [phone] TO TELL HER SHE WAS IN THE HOSPITAL. WOULD LIKE RECORDS FAXED TO HER. OFFICE IS CLOSED AT THIS TIME. CM WILL CALL OFFICE IN AM TO OBTAIN FAX NUMBER AND FAX INFORMATION. WILL FAX DISCHARGE ORDERS IN AM TO [facility],AFTER OBTAINING DRS CONFIRMATION THAT SHE WILL SIGN HH ORDERS.
[2020-09-24 17:17] VITALS: BP 152/56
--- NOTE | 2020-09-24 17:40 | NUR ---
PATIENT GIVEN DISHCARGE INSTRUCTIONS, 2 PRESCRIPTIONS WITH INFORMATION SHEETS; IV REMOVED. PATIENT HAS REMAINED A&OX4, PLEASANT AND COOPERATIVE WITH CARES THIS SHIFT. PATIENT DENIED PAIN/QUESTIONS/CONCERNS PRIOR TO D/C. PATIENT LEFT UNIT VIA WHEELCHAIR ACCOMPANIED BY NURSING STAFF WITH PERSONAL BELONGINGS AT APPROX. 1730 TO MEET FRIEND AT ENTRANCE TO TAKE HER HOME.
[2020-09-24 17:42] VITALS: BP 152/56
--- NOTE | 2020-09-25 13:08 | CON ---
[address] [address] CONSULTATION Name: AMBAR SOSA Room: [address] IN .[place].#: [id number] Admission: 09/22/20 Attend Phys: Jaquan Lee, Discharge: 09/24/20 Date of : 48 Report #: [id number] THIS REPORT FOR: cc: [facility] [place] - Clinic physician unknown [facility] [place] - Clinic physician unknown ~ Wilfred Portillo DPM DATE OF SERVICE: 09/24/2020 ADMISSION DIAGNOSIS: Cellulitis, lymphedema. HISTORY OF PRESENT ILLNESS: A 70-year-old female admitted through the Emergency Room after she lost her footing and fell on her left hip in her garage. She did not strike her head or suffer any injuries from the fall. She has chronic lymphedema with a history of lower extremity cellulitis and superficial ulceration. Upon admission, both legs were noted to be warm to the touch, red and painful consistent with cellulitis. She does not currently have any foot or leg wounds, other than perhaps a few small blisters to her legs. She received parenteral doxycycline in the ER for cellulitis, which she is currently on. She denies fevers, chills, nausea or malaise. She is homebound and lives alone. She has chronic lymphedema, severe obesity and chronic pain. She is currently having COPD exacerbation with dyspnea. She typically wears house shoes or socks around her home. LABORATORY DATA: WBC 7.0, RBC 3.70, hemoglobin 11.3, hematocrit 34.8, platelets 206. BUN 28, creatinine 1.4, glucose 180, albumin 3.1. PHYSICAL EXAMINATION: Both legs have advanced severe lymphedema with low-grade inflammation. No ulcers or blisters to either leg or feet. Her feet are warm with no signs of acute vascular embarrassment and the legs are painful with deep palpation. Toenails are dystrophic, consistent with onychomycosis without paronychia. IMPRESSION: 1. Chronic lymphedema with low-grade inflammation, no open foot or leg lesions. 2. Type 2 diabetes mellitus with peripheral neuropathy. PLAN: I do not recommend compression wrapping of her legs at present due to her COPD exacerbation, due to potential fluid overload. I think it is reasonable to continue the parenteral doxycycline for the skin inflammation, which could be a low-grade cellulitis. I will follow up with [place] tomorrow [place] [address] CONSULTATION Name: AMBAR SOSA Room: [address] IN [facility]#: [id number] Admission: 09/22/20 Attend Phys: Jaquan Lee, Discharge: 09/24/20 Date of : 48 Report #: [id number] [id number] Tubigrip stockinettes for light compression depending upon dyspnea. <ELECTRONICALLY SIGNED> By: Wilfred Portillo DPM 09/25/20 1308 0826 0952Wilfred Portillo DPM /paulo
== END 2020-09-24 17:30 | disposition home health service (06) | DRG 602 ==
LOC: M.ERS 15:33 → M.ORTHSURG 16:09 → M.TBA-ER 16:09 → M.ORTHSURG 20:15
PROVIDERS: Family Medicine; Physician Assistant; ADMIT Family Medicine; ATTEND Family Medicine
DX: L03.115 Cellulitis of right lower limb (principal); N17.0 Acute kidney failure with tubular necrosis; I13.0 Hypertensive heart and chronic kidney disease with heart failure and stage 1 through stage 4 chronic kidney disease, or unspecified chronic kidney disease; Z68.43 Body mass index [BMI] 50.0-59.9, adult; J96.11 Chronic respiratory failure with hypoxia; I50.32 Chronic diastolic (congestive) heart failure; N39.0 Urinary tract infection, site not specified; L03.116 Cellulitis of left lower limb; G89.29 Other chronic pain; E11.42 Type 2 diabetes mellitus with diabetic polyneuropathy; E87.6 Hypokalemia; E11.22 Type 2 diabetes mellitus with diabetic chronic kidney disease; F43.10 Post-traumatic stress disorder, unspecified; E83.42 Hypomagnesemia; I87.8 Other specified disorders of veins; L30.9 Dermatitis, unspecified; N18.30 Chronic kidney disease, stage 3 unspecified; G47.33 Obstructive sleep apnea (adult) (pediatric); I25.10 Atherosclerotic heart disease of native coronary artery without angina pectoris; E66.01 Morbid (severe) obesity due to excess calories; Z60.2 Problems related to living alone; Z96.653 Presence of artificial knee joint, bilateral; Z20.822 Contact with and (suspected) exposure to COVID-19; B35.1 Tinea unguium; Z85.3 Personal history of malignant neoplasm of breast; Z90.49 Acquired absence of other specified parts of digestive tract; Z88.5 Allergy status to narcotic agent; Z88.2 Allergy status to sulfonamides; Z88.8 Allergy status to other drugs, medicaments and biological substances; Z88.1 Allergy status to other antibiotic agents; Z91.041 Radiographic dye allergy status

== ENCOUNTER 2021-01-13 15:37 | Inpatient (IN) | payer OTHER ==
[~2021-01-13] VITALS: Ht 180.3 cm; Wt 120.7 kg
[2021-01-13 15:37] VITALS: BP 153/62
[~2021-01-13 15:37] MED LIST changes: +LEVOFLOXACIN500 MG PO
[2021-01-13] MEDS ORDERED: METFORMIN HCL500 M3 PO (15:57)
[2021-01-13 16:28] LABS: ABSOLUTE EOSINOPHILS 0.2 thou/uL (0.0-0.7); ABSOLUTE LYMPHOCYTES 1.3 thou/uL (0.8-5.3); ABSOLUTE MONOCYTES 0.4 thou/uL (0.0-1.2); ABSOLUTE NEUTROPHILS 4.8 thou/uL (1.6-8.1); BASOPHILS 0.4 %; EOSINOPHILS 3.4 %; HEMATOCRIT 30.5 % (37.0-47.0); HEMOGLOBIN 10.1 gm/dL (12.0-15.0); LYMPHOCYTES 19.3 %; MCH 30.9 pg (26.0-34.0); MCV 93.5 fL (80.0-100.0); MONOCYTES 6.4 %; MPV 7.9 fl. (7.2-11.1); NUCLEATED RBCS 0 /100WBC; PLATELET COUNT* 205 thou/uL (150-400); POLYS 70.5 %; RBC 3.26 mil/uL (4.20-5.00); RDW-CV 13.7 % (10.5-14.5); WBC 6.8 thou/uL (4.0-11.0)
[2021-01-13 16:37] LABS: CALCIUM 8.7 mg/dL (8.5-10.1); CREATININE 1.2 mg/dL (0.6-1.3); POTASSIUM 4.6 mmol/L (3.5-5.1)
[2021-01-13 16:47] LABS: ALBUMIN 3.1 g/dL (3.4-5.0); MAGNESIUM 1.6 mg/dL (1.8-2.4); TOTAL BILIRUBIN 0.8 mg/dL (<0.1-1.0); TOTAL PROTEIN 7.1 g/dL (6.4-8.2)
[2021-01-13 20:31] VITALS: BP 113/74
[2021-01-13 20:52] VITALS: BP 113/74
[2021-01-13 23:56] VITALS: BP 133/86
[2021-01-14 04:00] VITALS: BP 158/57
--- NOTE | 2021-01-14 04:11 | NUR ---
PT ARRIVED TO THE UNIT AT ABOUT 2044. A&O X 4, 2L BY NC. NO C/O PAIN OR SOB. SANDY IN PLACE. PT SLEPT MOST OF THE NIGHT. CALL LIGHT WITHIN REACH. WILL CONTINUE TO MONITOR.
[2021-01-14 05:29] LABS: HEMATOCRIT 28.9 % (37.0-47.0); HEMOGLOBIN 9.8 gm/dL (12.0-15.0); MCH 31.4 pg (26.0-34.0); MCHC 33.8 g/dL (28.0-37.0); MPV 8.2 fl. (7.2-11.1); RBC 3.11 mil/uL (4.20-5.00); RDW-CV 14.4 % (10.5-14.5); WBC 5.3 thou/uL (4.0-11.0)
[2021-01-14 05:51] LABS: CALCIUM 9.1 mg/dL (8.5-10.1); CREATININE 1.2 mg/dL (0.6-1.3)
[2021-01-14 06:07] LABS: POTASSIUM 3.6 mmol/L (3.5-5.1)
[2021-01-14 08:00] VITALS: BP 160/55
--- NOTE | 2021-01-14 09:50 | EKG ---
[place] [address] ELECTROCARDIOGRAM REPORT Name: AMBAR SOSA Room: [address] IN [facility].#: [id number] Admission: 01/13/21 Attend Phys: Kemal Pascual Discharge: Date of : 48 Date of Service: 01/13/21 1621 Report #: [id number] THIS REPORT FOR: //name// [facility] ED Test Date: 2021-01-13 Test Time: 16:21:15 Pat Name: AMBAR SOSA Department: Room: 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 /EPI
[2021-01-14 11:49] VITALS: BP 156/68
--- NOTE | 2021-01-14 11:52 | 2DMMODE ---
[place] [address] 2 D/M-MODE ECHOCARDIOGRAM Name: AMBAR SOSA Room: [address] IN [facility]#: [id number] Admission: 01/13/21 Attend Phys: Kemal Pascual Discharge: Date of : 48 Date of Service: 01/14/21 1151 Report #: [id number] THIS REPORT FOR: cc: [facility] - Clinic physician unknown [facility] - Clinic physician unknown Yair Valdes MD [facility] ~ APPROVED REPORT Study performed: 01/14/2021 10:21:11 EXAM: Comprehensive 2D, Doppler, and color-flow Echocardiogram Patient Location: In-Patient Room #: [facility] Status: routine BSA: 2.16 HR: 60 bpm BP: 158/57 mmHg Rhythm: NSR Other Information Study Quality: Good Indications Dyspnea 2D Dimensions IVSd: 10.16 (7-11mm) LVOT Diam: 18.43 (18-24mm) LVDd: 46.52 mm PWd: 10.77 (7-11mm) Ascending Ao: 26.56 (22-36mm) LVDs: 24.37 (25-40mm) Aortic Root: 28.20 mm Volumes Left Atrial Volume (Systole) LA ESV Index: 45.50 mL/m2 Aortic Valve AoV Peak Juni.: 2.69 m/s AO Peak Gr.: 28.92 mmHg LVOT Max P.82 mmHg AO Mean Gr.: 15.98 mmHg LVOT Mean P.19 mmHg LVOT Max V: 1.49 m/s AO V2 VTI: 70.20 cm LVOT Mean V: 0.93 m/s AMBER (VTI): 1.48 cm2 LVOT V1 VTI: 38.96 [place] [address] 2 D/M-MODE ECHOCARDIOGRAM Name: AMBAR SOSA Room: [address] IN [facility].#: [id number] Admission: 01/13/21 Attend Phys: Kemal Pascual Discharge: Date of : 48 Date of Service: 01/14/21 1151 Report #: [id number] Mitral Valve E/A Ratio: 1.32 MV Decel. Time: 263.14 ms MV E Max Juni.: 1.46 m/s MV PHT: 76.31 ms MVA (PHT): 2.88 cm2 TDI E/Lateral E': 14.60 E/Medial E': 16.22 Medial E' Juni.: 0.09 m/s Lateral E' Juni.: 0.10 m/s Pulmonary Valve PV Peak Juni.: 1.38 m/s PV Peak Gr.: 7.60 mmHg Tricuspid Valve RAP Estimate: 5.00 mmHg TR Peak Gr.: 31.50 mmHg RVSP: 36.00 mmHg PA Pressure: 36.00 mmHg Left Ventricle The left ventricle is normal size. There is normal LV segmental wall motion. There is normal left ventricular wall thickness. Left ventricular systolic function is normal. LVEF is 60-65%. Transmitral Doppler flow pattern suggests restrictive physiology. Right Ventricle The right ventricle is normal size. The right ventricular systolic function is normal. Atria Left atrium is moderately dilated. The right atrium size is normal. Aortic Valve Mild to moderate aortic valve sclerosis. No aortic regurgitation is present. Mild to moderate aortic stenosis. Mitral Valve The mitral valve is normal in structure. Mild mitral regurgitation. No evidence of mitral valve stenosis. Tricuspid Valve The tricuspid valve is normal in structure. Trace tricuspid regurgitation. Mild pulmonary hypertension. The RVSP is 40-[place] [address] 2 D/M-MODE ECHOCARDIOGRAM Name: AMBAR SOSA Room: [address]#: [id number] Admission: 01/13/21 Attend Phys: Kemal Pascual Discharge: Date of : 48 Date of Service: 01/14/21 1151 Report #: [id number] Pulmonic Valve The pulmonary valve is normal in structure. There is no pulmonic valvular regurgitation. Great Vessels The aortic root is normal in size. IVC is normal in size and collapses >50% with inspiration. Pericardium There is no pericardial effusion. <Conclusion> The left ventricle is normal size. There is normal left ventricular wall thickness. Left ventricular systolic function is normal. LVEF is 60-65%. Transmitral Doppler flow pattern suggests restrictive physiology. There is normal LV segmental wall motion. Left atrium is moderately dilated. Mild to moderate aortic valve sclerosis. Mild to moderate aortic stenosis. Mild mitral regurgitation. Trace tricuspid regurgitation. Mild pulmonary hypertension. The RVSP is 40-45 mmHg. IVC is normal in size and collapses >50% with inspiration. <ELECTRONICALLY SIGNED> By: Yair Valdes MD, FACC 01/14/21 1151 1151 1151 Yair Valdes MD, FACC /INF
--- NOTE | 2021-01-14 13:19 | NUR ---
Pt is A&O. Resides at home alone. Independent with ADLs. Supportive friends that provide transportation. Pt has a walker and wc at home for mobility. Pt has a hospital bed and home o2. Hx of [facility]. No hx of SNF. Anticipate dc to home tomorrow. ?HH
[2021-01-14 15:14] VITALS: BP 148/56
--- NOTE | 2021-01-14 16:01 | NUR ---
WOUND NURSE: PATIENT SEEN TO ASSESS WOUND ON LEFT POSTERIOR LOWER EXTREMITY. MEASURES 4.0 X 2.5 X 0.1 CM. CONTAINS SMALL AMOUNT OF PURULENT DRAINAGE WHICH IS MALODEROUS. WOUND BED WITH PINK NONGRANULATING TISSUE AND HYPERKERATOTIC TISSUE MAY BE A CONTRIBUTING FACTOR. CLEANSED WITH SOAP AND WATER, RINSED, THEN PATTED DRY. APPLIED AQUACEL AG UNDER ABD, WRAPPED WITH KERLEX UNDER THADDEUS WRAP TOES TO KNEE. DRESSING TO BE CHANGED DAILY. PATIENT SCHEDULED TO BE SEEN BY LYMPHEDEMA THERAPIST ON WEDNESDAY. I SPOKE WITH RAFA WHO KNOWS THE PATIENT. INSTRUCTED ON MEASURES TO PROMOTE HEALING AND PREVENT COMPLICATIONS. PATIENT STATES SHE UNDERSTANDS.
--- NOTE | 2021-01-14 18:39 | NUR ---
RECEIVED REPORT AROUND 0715. ASSUMED CARE. VS AND ASSESSMENT CHARTED. IV INTACT. HEART MONITOR ATTACHED AT SR. MEDS GIVEN PER SEP. HOURLY ROUNDING PERFORMED. CALL LIGHT WITH IN REACH. WILL CONTINUE TO MONITOR.
[2021-01-14 20:00] VITALS: BP 164/64
[2021-01-15 01:12] VITALS: BP 179/94
[2021-01-15 01:13] VITALS: BP 179/94
[2021-01-15 04:30] VITALS: BP 155/67
[2021-01-15 06:00] LABS: CALCIUM 9.5 mg/dL (8.5-10.1); CREATININE 1.4 mg/dL (0.6-1.3); POTASSIUM 3.7 mmol/L (3.5-5.1)
--- NOTE | 2021-01-15 06:41 | NUR ---
ASSUMED PT CARE AT APPROX. 1930. PT IS A/OX4. VSS. PT IS TRACING SR ON EDITORIAL ASSISTANT. MEDICATIONS ADMINISTERED PRESCRIBED. STRICT I/O'S. SEE CHARTING. ASSESSMENTS COMPLETE CHARTED. HOURLY ROUNDS COMPLETE CHARTED. NO ACUTE CHANGES DURING THE NOC. PT CURRENTLY SLEEPING. FALL PRECAUTIONS IN PLACE FOR SAFETY. CALL LIGHT W/IN REACH. WILL CONT. TO MONITOR.
[2021-01-15 07:30] VITALS: BP 151/63
[2021-01-15] MEDS ORDERED: KLOR-CON M2020 MEQ PO (13:40)
[2021-01-15] MEDS ORDERED: LASIX 40 MG TAB40 MG PO (13:40)
--- NOTE | 2021-01-15 13:54 | NUR ---
Pt to dc to home today, declines HH.
[2021-01-15 14:57] VITALS: BP 107/68
--- NOTE | 2021-01-15 16:40 | NUR ---
IV DC'D WITH CATH CANNULA INTACT. PRESSURE APPLIED UNTIL BLEEDING CEASED AND COTTON BALL AND TAPE. APPLIED. WAS GOING TO CHANGE PT'S LEFT LEG DRESSING. PT REFUSED WITH KENDALL WOUND NURSE BEING IN ROOM. HE WILL SET HER UP TO GO TO WOUND CLINIC. KENDALL STATED HE JUST CHANGED THE DRESSING YESTERDAY AND TOOK PICTURES OF THE WOUND.
--- NOTE | 2021-01-15 16:52 | NUR ---
WOUND NURSE: PATIENT SCHEDULEED TO BE SEEN IN [facility] HERE ON WEDNESDAY AT HER REQUEST REGARDING WOUND ON LLE. PATIENT REFUSED DRESSING CHANGE AND PHOTOGRAPH OF WOUND PRIOR TO DISCHARGE.
[2021-01-15 17:23] VITALS: BP 107/68
== END 2021-01-15 17:37 | disposition home or self-care (01) | DRG 291 ==
LOC: M.ERS 15:37 → M.TBA-ER 17:34 → M.ORTHSURG 17:34 → M.2W 01-14 18:13
PROVIDERS: Emergency Medicine Emergency Medical Services; Family Medicine; Registered Nurse; ADMIT Internal Medicine; ATTEND Internal Medicine
DX: I13.0 Hypertensive heart and chronic kidney disease with heart failure and stage 1 through stage 4 chronic kidney disease, or unspecified chronic kidney disease (principal); J96.21 Acute and chronic respiratory failure with hypoxia; I50.33 Acute on chronic diastolic (congestive) heart failure; E66.2 Morbid (severe) obesity with alveolar hypoventilation; L03.115 Cellulitis of right lower limb; L03.116 Cellulitis of left lower limb; I89.0 Lymphedema, not elsewhere classified; N18.30 Chronic kidney disease, stage 3 unspecified; E78.5 Hyperlipidemia, unspecified; E11.22 Type 2 diabetes mellitus with diabetic chronic kidney disease; F43.10 Post-traumatic stress disorder, unspecified; E11.40 Type 2 diabetes mellitus with diabetic neuropathy, unspecified; I25.10 Atherosclerotic heart disease of native coronary artery without angina pectoris; Z96.653 Presence of artificial knee joint, bilateral; Z20.822 Contact with and (suspected) exposure to COVID-19; Z85.3 Personal history of malignant neoplasm of breast; Z79.899 Other long term (current) drug therapy; Z79.84 Long term (current) use of oral hypoglycemic drugs; Z90.49 Acquired absence of other specified parts of digestive tract; Z88.1 Allergy status to other antibiotic agents; Z91.041 Radiographic dye allergy status; Z88.5 Allergy status to narcotic agent; Z88.2 Allergy status to sulfonamides; Z88.8 Allergy status to other drugs, medicaments and biological substances; Z91.018 Allergy to other foods; Z68.37 Body mass index [BMI] 37.0-37.9, adult

== ENCOUNTER 2021-05-08 20:26 | Inpatient (IN) | payer OTHER ==
[~2021-05-08] VITALS: Ht 154.9 cm; Wt 117.9 kg
[~2021-05-08 20:26] MED LIST changes: +KLOR-CON M2020 MEQ PO; +LASIX 40 MG TAB40 MG PO; +METFORMIN HCL500 M3 PO
[2021-05-08 20:33] VITALS: BP 153/44
[2021-05-08] MEDS ORDERED: LASIX 40 MG TAB40 MG PO (20:39)
[2021-05-08 21:26] LABS: ABSOLUTE EOSINOPHILS 0.3 thou/uL (0.0-0.7); ABSOLUTE LYMPHOCYTES 1.6 thou/uL (0.8-5.3); ABSOLUTE MONOCYTES 0.4 thou/uL (0.0-1.2); ABSOLUTE NEUTROPHILS 3.2 thou/uL (1.6-8.1); BASOPHILS 0.9 %; HEMATOCRIT 32.3 % (37.0-47.0); HEMOGLOBIN 10.5 gm/dL (12.0-15.0); LYMPHOCYTES 29.3 %; MCH 30.4 pg (26.0-34.0); MCHC 32.4 g/dL (28.0-37.0); MCV 93.8 fL (80.0-100.0); MPV 7.7 fl. (7.2-11.1); NUCLEATED RBCS 0 /100WBC; PLATELET COUNT* 201 thou/uL (150-400); POLYS 56.8 %; RBC 3.45 mil/uL (4.20-5.00); RDW-CV 14.1 % (10.5-14.5); WBC 5.6 thou/uL (4.0-11.0)
[2021-05-08 21:34] LABS: CREATININE 1.4 mg/dL (0.6-1.3); POTASSIUM 4.5 mmol/L (3.5-5.1)
[2021-05-08 21:38] LABS: ALBUMIN 3.2 g/dL (3.4-5.0); TOTAL BILIRUBIN 0.4 mg/dL (<0.1-1.0); TOTAL PROTEIN 7.5 g/dL (6.4-8.2)
[2021-05-09 04:32] VITALS: BP 164/56
[2021-05-09 08:32] VITALS: BP 136/47
--- NOTE | 2021-05-09 09:49 | NUR ---
pt refused breakfast.
--- NOTE | 2021-05-09 09:49 | NUR ---
wound culture obtained from left posterior wound.
[2021-05-09] MEDS ORDERED: OMEPRAZOLE 20 M20 M1 PO (10:33)
[2021-05-09 12:32] VITALS: BP 136/47; BP 142/42
--- NOTE | 2021-05-09 14:12 | NUR ---
CM COMPLETED ASSESSMENT WITH PT WHO INIDCATED SHE LIVES HOME ALONE, MOSTLY USES A W/C WHEN IN THE COMMUNITY. DRIVES. INDEPENDENT W/CARES. HAS HX WITH [facility] AND WOULD LIKE HH AT IN, AND WANTS TO USE THEM AGAIN. CM TO CONT TO ASSIST WITH SAFE D/C PLANNING.
[2021-05-09 16:32] VITALS: BP 142/51
[2021-05-09 17:16] VITALS: BP 142/51
--- NOTE | 2021-05-09 19:04 | NUR ---
PT. ADMITTED TO FLOOR FROM ER AROUND 1800. AOX4, VSS, DENIES PAIN OR DISCOMFORT. ADEQUATE APPETITE, BED SIDE COMMODE PLACED. CALL LIGHT AND PERSONAL BELONGINGS PLACED WITHIN REACH. MED REC AND ADMISSION INTERVENTIONS COMPLETED. PT. IN CHAIR, IN STABLE CONDITION AT THIS TIME. BLE EDEMA 3+ , ELEVATED WITH PILLOW AND RECLINER ON. NO SKIN BREAKDOWN OR DRAINAGE NOTED.
[2021-05-10 07:50] VITALS: BP 158/45
[2021-05-10 14:21] LABS: ABSOLUTE EOSINOPHILS 0.3 thou/uL (0.0-0.7); ABSOLUTE LYMPHOCYTES 1.3 thou/uL (0.8-5.3); ABSOLUTE MONOCYTES 0.4 thou/uL (0.0-1.2); ABSOLUTE NEUTROPHILS 3.3 thou/uL (1.6-8.1); BASOPHILS 0.7 %; EOSINOPHILS 5.5 %; HEMATOCRIT 33.3 % (37.0-47.0); HEMOGLOBIN 10.9 gm/dL (12.0-15.0); LYMPHOCYTES 24.7 %; MCH 30.9 pg (26.0-34.0); MCHC 32.8 g/dL (28.0-37.0); MCV 94.3 fL (80.0-100.0); MPV 7.6 fl. (7.2-11.1); NUCLEATED RBCS 0 /100WBC; PLATELET COUNT* 206 thou/uL (150-400); POLYS 61.1 %; RBC 3.52 mil/uL (4.20-5.00); RDW-CV 14.2 % (10.5-14.5); WBC 5.3 thou/uL (4.0-11.0)
[2021-05-10 14:51] LABS: CALCIUM 9.5 mg/dL (8.5-10.1); CREATININE 1.4 mg/dL (0.6-1.3); POTASSIUM 4.3 mmol/L (3.5-5.1)
[2021-05-10 16:35] VITALS: BP 117/48
--- NOTE | 2021-05-10 16:51 | NUR ---
PATIENT UP WITH ASSISTANCE; SITTING IN CHAIR ALL AFTERNOON. IV SITE CHANGED TO LEFT FA, IV ABX INFUSING. ROCEPHIN DAILY ORDERED PER DR. CHAN. LEGS WRAPPED WITH THADDEUS DAVE PER ORDERS. LARGE AMOUNT OF URINE NOTED TO DELGADO CATH. NO BM NOTED THIS SHIFT. NO COMPLAINTS OF PAIN.
[2021-05-10 19:45] VITALS: BP 141/53
--- NOTE | 2021-05-11 05:14 | NUR ---
PT UP IN CHAIR AT START OF SHIFT, UP WITH ASSIST GB AND WALKER BACK TO BED. AOX4, TALKATIVE. O2 2L NC ON OVERNIGHT. THADDEUS WRAP DRSG CDI TO BLE. LFA IV SL, ABX GIVEN ORDERED. HS ACCUCHECK 199 INSULIN GIVEN ORDERED. R LIMB ALERT DUE TO PARTIAL MASTECTOMY. DELGADO DRAINING YELLOW URINE. BED ALARM ON FOR SAFETY OVERNIGHT, CALL LITE IN EASY REACH.
[2021-05-11 05:59] LABS: ABSOLUTE BASOPHILS 0.1 thou/uL (0.0-0.2); ABSOLUTE EOSINOPHILS 0.4 thou/uL (0.0-0.7); ABSOLUTE MONOCYTES 0.5 thou/uL (0.0-1.2); ABSOLUTE NEUTROPHILS 2.8 thou/uL (1.6-8.1); BASOPHILS 1.6 %; EOSINOPHILS 6.3 %; HEMATOCRIT 30.9 % (37.0-47.0); HEMOGLOBIN 10.1 gm/dL (12.0-15.0); LYMPHOCYTES 35.2 %; MCH 30.8 pg (26.0-34.0); MCHC 32.7 g/dL (28.0-37.0); MCV 94.1 fL (80.0-100.0); MPV 7.7 fl. (7.2-11.1); NUCLEATED RBCS 0 /100WBC; PLATELET COUNT* 211 thou/uL (150-400); POLYS 48.9 %; RBC 3.28 mil/uL (4.20-5.00); RDW-CV 14.1 % (10.5-14.5); WBC 5.7 thou/uL (4.0-11.0)
[2021-05-11 06:33] LABS: ALBUMIN 2.8 g/dL (3.4-5.0); CREATININE 1.3 mg/dL (0.6-1.3); POTASSIUM 4.1 mmol/L (3.5-5.1); TOTAL BILIRUBIN 0.3 mg/dL (<0.1-1.0); TOTAL PROTEIN 6.8 g/dL (6.4-8.2)
[2021-05-11 07:51] VITALS: BP 142/59
[2021-05-11 15:59] VITALS: BP 121/61
--- NOTE | 2021-05-11 17:03 | NUR ---
PT UP WITH LIMITED ASSIST. BLE ELEVATED. DRESSINGS TO BLE C/D/I. O2 2L NC. DELGADO TO DD. RUE LIMB ALERT. HX BREAST CANCER. DENIES NEED FOR PAIN MEDICATION. CALL LIGHT IN REACH. FALL PRECAUTIONS IN PLACE.
[2021-05-11 20:00] VITALS: BP 104/53
[2021-05-12 03:00] VITALS: BP 152/54
--- NOTE | 2021-05-12 05:15 | NUR ---
ASSUMED CARE AT 1915. ALERT AND ORIENTED. O2 2L NC. AT MIDNIGHT PT BECAME TEARFUL AND ANXIOUS, STATED THAT IS RESTLESS IN BED WITH "NOTHING TO DO" AND THAT DID NOT THINK WOULD BE IN HOSPITAL THIS LONG. REASSURANCE GIVEN AND GAVE PT CROSSWORD PUZZLE BOOK WHICH PT APPRECIATED. DELGADO CATHETER DD YELLOW URINE. UP TO ASSIST WITH WALKER. BLE DRESSING WRAPS CHANGED PER PT REQUEST. FINALLY SLEPT SOME AFTER 0300. CALL LIGHT IN REACH AND BED ALARM ON.
[2021-05-12 08:00] VITALS: BP 155/57
[2021-05-12] MEDS ORDERED: CIPRO500 M1 PO (10:36)
--- NOTE | 2021-05-12 13:34 | NUR ---
WOUND NURSE: PATIENT SEEN TO ADDRESS SKIN LESION ON LEFT CALF AND PERIPHERAL EDEMA BILATERALLY. PATIENT WITH 3.0 X 3.0 X 0.1 CM SUPERFICIAL LESION BUT PAINFUL TO TOUCH ON LEFT CALF AND CONTAINS RED, NONGRANULATIGN TISSUE IN THE WOUND BED. ALSO HAS HYPERKERATOTIC SKIN BILATERALLY AND PRSENTS WITH HARD HOOD NODULAR INTACT TISSUE. GIRTH MEASUREMENTS FOLLOWS L/R: FOREFOOT: 51.0 / 51.5; ANKLE: 31.0 / 25.5; CALF: 51.0 / 51.5 CM. WOUND CARE PROVIDED AND COMPRESSION WRAPS APPLIED PRESCRIBED. PATIENT INSTRUCTED ON CARE OF LEGS AND TO FOLLOW UP IN CLINIC NEXT WEEK WITH DR. ROCKY MD AT 1300. STATES SHE UNDERSTANDS.
[2021-05-12 15:56] VITALS: BP 155/57
[2021-05-12 16:12] VITALS: BP 155/57
[2021-05-12 16:22] VITALS: BP 155/57
[2021-05-12 16:46] VITALS: BP 155/57
--- NOTE | 2021-05-12 18:11 | NUR ---
CM F/U Pt medically clear to discharge. Pt to be referred to HH and pt requesting [facility] as she reports she had it before. Pt opted to leave [facility] prior to confirmation of HH services. After pt's discharge, [facility] contacted this underwriter solicitation director to relay the agency does not accept pt's insurance. This underwriter solicitation director to followup with pt to link to alternative HH.
--- NOTE | 2021-05-13 14:27 | NUR ---
CM Followup - This life underwriter recieved a call from [facility]. [facility] reported that pt's insurance is accepted by the agency and they will followup with pt to provide HH services.
== END 2021-05-12 17:00 | disposition home health service (06) | DRG 602 ==
LOC: M.ERS 20:26 → M.TBA-ER 22:26 → M.3W 05-09 17:18
PROVIDERS: Internal Medicine; Physician Assistant; ADMIT Internal Medicine; ATTEND Internal Medicine
DX: L03.116 Cellulitis of left lower limb (principal); N17.0 Acute kidney failure with tubular necrosis; I13.0 Hypertensive heart and chronic kidney disease with heart failure and stage 1 through stage 4 chronic kidney disease, or unspecified chronic kidney disease; I50.32 Chronic diastolic (congestive) heart failure; J96.11 Chronic respiratory failure with hypoxia; Z68.42 Body mass index [BMI] 45.0-49.9, adult; L03.115 Cellulitis of right lower limb; N18.9 Chronic kidney disease, unspecified; E11.22 Type 2 diabetes mellitus with diabetic chronic kidney disease; Z79.4 Long term (current) use of insulin; F41.9 Anxiety disorder, unspecified; F43.10 Post-traumatic stress disorder, unspecified; X08.8XXA Exposure to other specified smoke, fire and flames, initial encounter; E66.01 Morbid (severe) obesity due to excess calories; Z88.2 Allergy status to sulfonamides; Z88.8 Allergy status to other drugs, medicaments and biological substances; B96.1 Klebsiella pneumoniae [K. pneumoniae] as the cause of diseases classified elsewhere; R59.1 Generalized enlarged lymph nodes; Z20.822 Contact with and (suspected) exposure to COVID-19

== ENCOUNTER → 2021-05-20 | Outpatient (CLI) | payer MEDICARE ==
[~2021-05-20] MED LIST changes: +CIPRO500 M1 PO
== END ==
LOC: M.WC 13:09
PROVIDERS: ATTEND Emergency Medicine Undersea and Hyperbaric Medicine
DX: I89.0 Lymphedema, not elsewhere classified (principal); E66.9 Obesity, unspecified; F41.9 Anxiety disorder, unspecified; Z79.84 Long term (current) use of oral hypoglycemic drugs; Z79.899 Other long term (current) drug therapy; Z68.42 Body mass index [BMI] 45.0-49.9, adult